=== PATIENT | male | born 1965 | race Asian ===

== ENCOUNTER 2022-06-15 13:54 | Outpatient (CLI) | payer OTHER, MEDICARE, MEDICAID, SELFPAY | END 2022-06-15 13:55 | disposition home or self-care (01) | PROVIDERS: PCP Student in an Organized Health Care Education/Training Program; Visit Provider Surgery | DX: L89.312 Pressure ulcer of right buttock, stage 2 (principal); L89.322 Pressure ulcer of left buttock, stage 2; G82.53 Quadriplegia, C5-C7 complete; Z79.01 Long term (current) use of anticoagulants; K59.2 Neurogenic bowel, not elsewhere classified | CPT/HCPCS: 97597; 99203 ==

== ENCOUNTER 2022-07-06 13:46 | Outpatient (CLI) | payer OTHER, MEDICAID, SELFPAY | END 2022-07-06 13:47 | disposition home or self-care (01) | LOC: WOUND 13:46 | PROVIDERS: PCP Student in an Organized Health Care Education/Training Program; Visit Provider Surgery | DX: L89.322 Pressure ulcer of left buttock, stage 2 (principal); L89.312 Pressure ulcer of right buttock, stage 2; G82.53 Quadriplegia, C5-C7 complete; Z79.01 Long term (current) use of anticoagulants; K59.2 Neurogenic bowel, not elsewhere classified | CPT/HCPCS: 11042 ==

== ENCOUNTER 2022-07-19 13:20 | Outpatient (CLI) | payer MEDICARE, OTHER, MEDICAID, SELFPAY | END 2022-07-19 13:21 | disposition home or self-care (01) | LOC: WOUND 13:20 | PROVIDERS: PCP Student in an Organized Health Care Education/Training Program; Visit Provider Nurse Practitioner Family | DX: L89.312 Pressure ulcer of right buttock, stage 2 (principal); L89.322 Pressure ulcer of left buttock, stage 2; G82.53 Quadriplegia, C5-C7 complete | CPT/HCPCS: 11042 ==

== ENCOUNTER 2022-12-15 12:22 | Outpatient (CLI) | payer MEDICARE, OTHER, MEDICAID, SELFPAY | END 2022-12-15 12:23 | disposition home or self-care (01) | LOC: NFLDREF 12-20 11:40 | PROVIDERS: PCP Student in an Organized Health Care Education/Training Program; Referring Provider Student in an Organized Health Care Education/Training Program; Visit Provider Physician Assistant | DX: R30.0 Dysuria (principal); N39.0 Urinary tract infection, site not specified | CPT/HCPCS: 87086; 87186 ==

== ENCOUNTER 2022-12-18 16:52 | Emergency (ER) | payer MEDICARE, OTHER, MEDICAID, SELFPAY ==
[2022-12-18 17:01] VITALS: BP 123/84; PULSE 84; RESP 16; TEMP 36.6; O2SAT 99; BMI 38.0
--- NOTE | 2022-12-18 17:14 | ED_ITS ---
HPI - General Adult General Chief complaint: Urogenital Problems, Male Stated complaint: UTI Time Seen by Provider: 12/18/22 16:54 Source: patient Mode of arrival: wheelchair Limitations: no limitations History of Present Illness HPI narrative: 57-year-old male coming in today at the request of urgent care. Patient was seen last Monday and started on Macrobid for UTI. He was then seen on Monday is Macrobid was switched to cephalexin to cover for a left lower extremity cellulitis. Urine culture came back to the urgent care today with E coli, multi organism resistant and so patient was told to come to the ER for follow-up. Patient states that on Monday he started having terrible cramping across his abdomen which is unsure tell way that he has a UTI. Urine was dark, cloudy and has strong odor to it. Patient states that he took 2 doses of the Macrobid and his symptoms essentially cleared up. His cramping this appeared and his urine is clear and no longer odorous. He also states that his left lower extremity is less swollen and less red than it was on Monday. He denies any fevers. And generally states that his energy is back to normal as well as his appetite. Related Data Home Medications Medication Instructions Recorded Confirmed methenamine hippurate 1 gram tablet 1 g PO BID 12/15/22 12/16/22 rivaroxaban 10 mg tablet (Xarelto) 10 mg PO DAILY 12/15/22 12/16/22 Previous Rx's Medication Instructions Recorded cephalexin 500 mg capsule 500 mg PO TID 10 days #30 caps 12/16/22 Allergies Allergy/AdvReac Type Severity Reaction Status Date / Time No Known Drug Allergies Allergy Verified 12/18/22 17:06 Review of Systems Status of ROS: Reports: 10 or more systems reviewed and unremarkable except as noted in History and below Exam Narrative: Exam Narrative: Obese, well-developed patient in no acute distress. In his wheelchair. Alert and oriented x3. Answers questions appropriately. Mood and affect are appropriate. Thoughts are goal oriented and rational. No tangential or magical thinking noted. Patient speaks in full sentences without needing to catch his breath. Speech is not slurred or pressure. Patient does not appear ill or toxic. Vital signs are entirely normal. HEENT: Normocephalic atraumatic. Pupils are equally round reactive to light. Extraocular muscles are intact. Conjunctivae are moist without any icterus noted. Moist mucous membranes. Abdomen: Soft and nontender nondistended with normal bowel sounds. No guarding or rebound. Extremities: Bilateral lower extremities have 2+ pitting edema which is not new for him. He does have some erythema and warmth of the left lower extremity in the. Redness extends to about the mid mathew. When reviewing previous note this appears to be quite an improvement. Skin: Warm dry and intact. Const: Vital Signs, click to edit/add: Vital Signs - 24 hr 12/18/22 17:01 Temperature 97.8 F Pulse Rate [Pulse Oximeter] 84 Respiratory Rate 16 Blood Pressure [Ri t Upper Arm] 123/84 Pulse Oximetry 99 Oxygen Delivery Me thod Room Air Course Vital Signs Vital signs: Initial Vital Signs Temperature 97.8 F 12/18/22 17:01 Temperature Source Temporal Artery Scan 12/18/22 17:01 Pulse Rate 84 12/18/22 17:01 Pulse Rhythm Regular 12/18/22 17:01 Pulse Strength 3+ Normal 12/18/22 17:01 Respiratory Rate 16 12/18/22 17:01 Blood Pressure 123/84 12/18/22 17:01 Blood Pressure Mean 97 12/18/22 17:01 Blood Pressure Position Sitting 12/18/22 17:01 Pulse Oximetry 99 12/18/22 17:01 Oxygen Delivery Method Room Air 12/18/22 17:01 Vital Signs Temperature 97.8 F 12/18/22 17:01 Pulse Rate 84 12/18/22 17:01 Respiratory Rate 16 12/18/22 17:01 Blood Pressure 123/84 12/18/22 17:01 Pulse Oximetry 99 12/18/22 17:01 Oxygen Delivery Method Room Air 12/18/22 17:01 Temperature 97.8 F 12/18/22 17:01 Pulse Rate 84 12/18/22 17:01 Respiratory Rate 16 12/18/22 17:01 Blood Pressure 123/84 12/18/22 17:01 Pulse Oximetry 99 12/18/22 17:01 Oxygen Delivery Method Room Air 12/18/22 17:01 Medical Decision Making MDM Narrative Medical decision making narrative: 57-year-old male with UTI and cellulitis. At this point I think he should continue his Keflex however start his Macrobid back as this is the only oral me dication that the urine specimen came back sensitive to. Also it appears the patient has had a good response to 2 doses already done so. We will continue Macrobid at this point. He is to follow up with his primary care provider if at any point time starts to feel worse or he can certainly return to the ER. Medical Records Medical records reviewed: Yes I reviewed the patient's medical records Lab Data Lab results reviewed: Yes I reviewed the patient's lab results Discharge Plan Discharge Clinical Impression: Urinary tract infection, Cellulitis Patient Disposition: Home, Self-Care Condition: Stable Additional Instructions: If your symptoms worsen, return to the ER. Restart your Macrobid at the same dose and schedule and finish the prescription. Continue taking the cephalexin. Prescriptions: No Action cephalexin 500 mg capsule 500 mg PO TID 10 Days Qty: 30 0RF methenamine hippurate 1 gram tablet 1 g PO BID Xarelto 10 mg tablet 10 mg PO DAILY Follow Up/Referrals: JOELLEN FIORE DO [Primary Care Provider] - Stand Alone Forms: [employer] Info Instructions
[2022-12-18 17:31] VITALS: BP 123/84; PULSE 84; RESP 16; TEMP 36.6
== END 2022-12-18 17:31 | disposition home or self-care (01) ==
LOC: ED 17:23
PROVIDERS: Emergency Provider Family Medicine; PCP Student in an Organized Health Care Education/Training Program
DX: N39.0 Urinary tract infection, site not specified (principal); L03.116 Cellulitis of left lower limb
CPT/HCPCS: 99282; 99283

== ENCOUNTER 2023-07-04 12:39 | Outpatient (CLI) | payer MEDICARE, OTHER, MEDICAID, SELFPAY | END 2023-07-04 12:40 | disposition home or self-care (01) | LOC: WOUND 12:40 | PROVIDERS: PCP Student in an Organized Health Care Education/Training Program; Visit Provider Nurse Practitioner Family | DX: L89.313 Pressure ulcer of right buttock, stage 3 (principal); L89.153 Pressure ulcer of sacral region, stage 3; G82.53 Quadriplegia, C5-C7 complete; Z99.3 Dependence on wheelchair | CPT/HCPCS: 11042; G0463 ==

== ENCOUNTER 2023-07-11 10:39 | Outpatient (CLI) | payer MEDICARE, OTHER, MEDICAID, SELFPAY | END 2023-07-11 10:40 | disposition home or self-care (01) | LOC: WOUND 10:39 | PROVIDERS: PCP Student in an Organized Health Care Education/Training Program; Visit Provider Nurse Practitioner Family | DX: L89.313 Pressure ulcer of right buttock, stage 3 (principal); L89.153 Pressure ulcer of sacral region, stage 3; G82.53 Quadriplegia, C5-C7 complete | CPT/HCPCS: 11042 ==

== ENCOUNTER 2023-07-20 12:35 | Outpatient (CLI) | payer MEDICARE, OTHER, MEDICAID, SELFPAY | END 2023-07-20 12:36 | disposition home or self-care (01) | LOC: WOUND 12:35 | PROVIDERS: PCP Student in an Organized Health Care Education/Training Program; Visit Provider Nurse Practitioner Family | DX: L89.313 Pressure ulcer of right buttock, stage 3 (principal); L89.153 Pressure ulcer of sacral region, stage 3; G82.53 Quadriplegia, C5-C7 complete | CPT/HCPCS: 11042 ==

== ENCOUNTER 2023-08-03 09:20 | Outpatient (CLI) | payer MEDICARE, OTHER, MEDICAID, SELFPAY | END 2023-08-03 09:21 | disposition home or self-care (01) | LOC: WOUND 09:20 | PROVIDERS: PCP Student in an Organized Health Care Education/Training Program; Visit Provider Nurse Practitioner Family | DX: L89.313 Pressure ulcer of right buttock, stage 3 (principal); L89.153 Pressure ulcer of sacral region, stage 3; G82.53 Quadriplegia, C5-C7 complete; Z99.3 Dependence on wheelchair | CPT/HCPCS: 11042 ==

== ENCOUNTER 2023-08-17 12:51 | Outpatient (CLI) | payer MEDICARE, OTHER, MEDICAID, SELFPAY | END 2023-08-17 12:52 | disposition home or self-care (01) | LOC: WOUND 12:51 | PROVIDERS: PCP Student in an Organized Health Care Education/Training Program; Visit Provider Nurse Practitioner Family | DX: L89.313 Pressure ulcer of right buttock, stage 3 (principal); L89.893 Pressure ulcer of other site, stage 3; G82.53 Quadriplegia, C5-C7 complete | CPT/HCPCS: 11042 ==

== ENCOUNTER 2023-09-07 13:49 | Outpatient (CLI) | payer MEDICARE, OTHER, MEDICAID, SELFPAY | END 2023-09-07 13:50 | disposition home or self-care (01) | LOC: WOUND 13:49 | PROVIDERS: PCP Student in an Organized Health Care Education/Training Program; Visit Provider Nurse Practitioner Family | DX: L89.893 Pressure ulcer of other site, stage 3 (principal); G82.53 Quadriplegia, C5-C7 complete; Z99.3 Dependence on wheelchair | CPT/HCPCS: 11042 ==

== ENCOUNTER 2023-10-19 13:08 | Outpatient (CLI) | payer MEDICARE, OTHER, MEDICAID, SELFPAY | END 2023-10-19 13:09 | disposition home or self-care (01) | LOC: WOUND 13:09 | PROVIDERS: PCP Student in an Organized Health Care Education/Training Program; Visit Provider Nurse Practitioner Family | DX: L89.893 Pressure ulcer of other site, stage 3 (principal); G82.53 Quadriplegia, C5-C7 complete; Z99.3 Dependence on wheelchair | CPT/HCPCS: 11042 ==

== ENCOUNTER 2023-10-20 09:29 | Emergency (ER) | payer MEDICARE, OTHER, MEDICAID, SELFPAY ==
[2023-10-20 09:36] VITALS: BP 93/67; PULSE 79; RESP 18; TEMP 35.9; O2SAT 96; BMI 26.8
--- NOTE | 2023-10-20 10:09 | ED_ITS ---
HPI - General Adult General Chief complaint: Lower Extremity Swelling Stated complaint: cellulitis - right leg Time Seen by Provider: 10/20/23 09:44 History of Present Illness HPI narrative: This 58-year-old male has been taking Keflex for a cellulitis in his right lower extremity. He started this treatment 3 days ago and comes in for recheck. He states that he is not getting worse but is not sure that he is getting better. He does have paraplegia with very little sensation in his lower extremities. He has large pedal edema and wears compression stockings. He arrives here with normal vital signs and is not reporting any new symptoms. Related Data Home Medications ?Medication ?Instructions ?Recorded ?Confirmed methenamine hippurate 1 gram tablet 1 g PO BID 10/17/23 10/17/23 nitrofurantoin 1 cap PO BID 10/17/23 10/17/23 monohydrate/macrocrystals 100 mg capsule rivaroxaban 10 mg tablet (Xarelto) 10 mg PO DAILY 10/17/23 10/17/23 Previous Rx's ?Medication ?Instructions ?Recorded cephalexin 500 mg capsule 500 mg PO QID 7 days #28 caps 10/17/23 Allergies Allergy/AdvReac Type Severity Reaction Status Date / Time No Known Drug Allergies Allergy Verified 10/17/23 10:14 Review of Systems Status of ROS: Reports: 10 or more systems reviewed and unremarkable except as noted in History and below Narrative: Constitutional: No fevers, no weight gain or loss. Eyes: No discharge. No vision changes. HENT: No congestion, no sore throat, no ear pain. Cardiovascular: No chest pain, no palpitations. Respiratory: No shortness of breath, no wheezes, no cough. Gastrointestinal: No abdominal pain, no vomiting, no diarrhea. Genitourinary: No dysuria, no hematuria. Musculoskeletal: Paraplegia. Skin: No rashes, no pruritis. Neurological: No dizziness, weakness, sensory change, speech change. Endo/Heme/Allergies: No bruising or bleeding. No polydipsia. Pysch: no suicidality, no anxiety, no insomnia. All other systems reviewed and are negative. PFS PFS Social History Smoking Status: Never smoker How often do you have a drink containing alcohol: never AUDIT-C Alcohol total score: 0 Non-prescribed substance use: denies use Exam Narrative: Exam Narrative: Constitutional: Well-developed, well-nourished, no acute distress. HEENT: Normocephalic, atraumatic. Neck: Normal range of motion. Nontender. Supple. Heart: Intact distal pulses. Lungs: No chest discomfort. No wheezes, rhonchi, or rales. Abdomen: Nontender. Back: Normal range of motion. Extremities: Paraplegia. No injury. Skin: Intact. No rash. Right lower extremity has erythema and pedal edema extending from below his knee out to his foot. There is increased warmth. Neurologic: No altered sensation. No weakness. Alert and oriented. Psychiatric: No suicidality. No anxiety or depression. No insomnia. Nursing notes and vitals signs are reviewed. Const: Vital Signs, click to edit/add: Vital Signs - 24 hr 10/20/23 09:36 Temperature 96.7 F L Pulse Rate [Pulse Oximeter] 79 Respiratory Rate 18 Blood Pressure [Ri ght Upper Arm] 93/67 Pulse Oximetry 96 Oxygen Delivery Me thod Room Air Course Vital Signs Vital signs: Initial Vital Signs Temperature 96.7 F L 10/20/23 09:36 Temperature Source Temporal Artery Scan 10/20/23 09:36 Pulse Rate 79 10/20/23 09:36 Pulse Rhythm Regular 10/20/23 09:36 Respiratory Rate 18 10/20/23 09:36 Blood Pressure 93/67 10/20/23 09:36 Blood Pressure Mean 75 10/20/23 09:36 Blood Pressure Position Sitting 10/20/23 09:36 Pulse Oximetry 96 10/20/23 09:36 Oxygen Delivery Method Room Air 10/20/23 09:36 Vital Signs Temperature 96.7 F L 10/20/23 09:36 Pulse Rate 79 10/20/23 09:36 Respiratory Rate 18 10/20/23 09:36 Blood Pressure 93/67 10/20/23 09:36 Pulse Oximetry 96 10/20/23 09:36 Oxygen Delivery Method Room Air 10/20/23 09:36 Temperature 96.7 F L 10/20/23 09:36 Pulse Rate 79 10/20/23 09:36 Respiratory Rate 18 10/20/23 09:36 Blood Pressure 93/67 10/20/23 09:36 Pulse Oximetry 96 10/20/23 09:36 Oxygen Delivery Method Room Air 10/20/23 09:36 Medical Decision Making MDM Narrative Medical decision making narrative: This patient is being treated for cellulitis in his right lower extremity. He is currently taking Keflex. He states that symptoms have not worsened but she feels that the redness has not improved also. He arrives with normal vital signs. I did explain that recent literature that was reviewed by us doctors in the emergency department was indicating that the symptoms of redness often take more than a week to resolve. IA stated reassurance with the current plan and advised him regarding signs and symptoms that would indicate a need for return and re-evaluation and change of treatment strategy. He is agreeable with this plan. Discharge Plan Discharge Clinical Impression: Cellulitis Patient Disposition: Home, Self-Care Condition: Unchanged Additional Instructions: Continue current plans. Follow up with primary physician or return if worsening symptoms happen. Prescriptions: No Action nitrofurantoin monohyd/m-cryst 100 mg capsule 1 cap PO BID Xarelto 10 mg tablet 10 mg PO DAILY methenamine hippurate 1 gram tablet 1 g PO BID cephalexin 500 mg capsule 500 mg PO QID 7 Days Qty: 28 0RF Follow Up/Referrals: JOELLEN FIORE DO [Primary Care Provider] - Stand Alone Forms: [employer] Info Instructions
== END 2023-10-20 10:25 | disposition home or self-care (01) ==
LOC: ED 10:14
PROVIDERS: Emergency Provider Emergency Medicine Emergency Medical Services; PCP Student in an Organized Health Care Education/Training Program
DX: L03.115 Cellulitis of right lower limb (principal)
CPT/HCPCS: 99283; 99284

== ENCOUNTER 2023-10-24 22:18 | Outpatient (CLI) | payer MEDICARE, OTHER, MEDICAID, SELFPAY | END 2023-10-24 22:19 | disposition home or self-care (01) | LOC: AMB 10-26 02:02 | PROVIDERS: PCP Student in an Organized Health Care Education/Training Program; Visit Provider Emergency Medicine | DX: R55 Syncope and collapse (principal) | CPT/HCPCS: A0998 ==

== ENCOUNTER 2023-10-24 23:07 | Emergency (ER) | payer MEDICARE, OTHER, MEDICAID, SELFPAY ==
[2023-10-24 23:31] VITALS: BP 100/60; PULSE 100; RESP 16; TEMP 37; O2SAT 93; BMI 27.3
--- NOTE | 2023-10-25 00:17 | ED_ITS ---
HPI - General Adult General Chief complaint: Syncope/Fainted Stated complaint: syncope Time Seen by Provider: 10/25/23 00:00 Source: patient and family Mode of arrival: wheelchair (Wheelchair-bound at baseline) Limitations: no limitations History of Present Illness HPI narrative: 58-year-old male with a history of a spinal cord injury at C7 presents to the emergency department for evaluation of syncope in the shower. This happened about 2 to 2-1/2 hours prior to arrival. Patient has been treated for cellulitis of the right lower extremity for the past 4 and half days. ED note from the reviewed. Currently being treated with Keflex. He is reporting that the Keflex causes some nausea and he has a poor appetite. He states that he took a long hot shower and then started to feel slightly lightheaded. His caregiver was helping him with his shower chair slide into his wheelchair when the caregiver reports that he passed out for what was probably less than a minute. There was no shaking or seizure-like activity. Denies intoxication. Reports that when patient came to, he was fully alert. Patient says he has been feeling more fatigued over the past few days from the infection but also possibly from side effects of the antibiotic. The antibiotic does cause some nausea. No chest pain, no shortness of breath, no unusual symptoms following the episode tonight. Patient was evaluated by his primary care provider actually earlier today and a chest x-ray was performed due to a mild cough. Per patient, this did not show anything abnormal and he was recommended to use an inhaler for a little bit of bronchiolitis if needed. Patient is not running any fevers. He has some swelling in the leg but states that it does not appear to be worsening for infection. 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 Reports no lapse in this treatment. Denies neurological changes. No diarrhea, bloody stools or other symptoms of illness. He does have a chronic wound on his right knee that is being treated by the wound care. He states that this is dry, not draining and not showing any signs of worsening. He was told that this could have been from a spider bite as no other etiology has been found. No prior history of any heart problems, heart failure, coronary artery disease or arrhythmia. Past medical history is notable for prior DVT and also the C7 spinal cord injury. He is wheelchair-bound. He also reports prior multiple urinary tract infections, is now on prophylactic treatment for this. No recent surgeries. Nonsmoker. ROS is notable for the generalized symptoms as described above, otherwise denies times 12 systems Related Data Home Medications ?Medication ?Instructions ?Recorded ?Confirmed methenamine hippurate 1 gram tablet 1 g PO BID 10/17/23 10/24/23 rivaroxaban 10 mg tablet (Xarelto) 10 mg PO DAILY 10/17/23 10/24/23 cephalexin 500 mg capsule 500 mg PO QID 10/24/23 10/24/23 Allergies Allergy/AdvReac Type Severity Reaction Status Date / Time No Known Drug Allergies Allergy Verified 10/17/23 10:14 PFSH PFS Social History Smoking Status: Never smoker How often do you have a drink containing alcohol: never AUDIT-C Alcohol total score: 0 Non-prescribed substance use: denies use Exam Const: Vital Signs, click to edit/add: Vital Signs - 24 hr 10/24/23 23:31 Temperature 98.6 F Pulse Rate [Pulse Oximeter] 100 Respiratory Rate 16 Blood Pressure [Ri ght Upper Arm] 100/60 Pulse Oximetry 93 Documenting provider has reviewed patient's vital signs: yes Common normals: no apparent distress and alert Other: Friendly cooperative, good historian. HENMT: Common normals: normocephalic and oropharynx normal Head and scalp: normocephalic Face and sinus: normal facial exam Eye: Common normals: conjunctivae normal General eye: normal appearance of both eyes Conjunctiva: conjunctiva(e) normal Neck & C-Spine: General: normal visual inspection Resp: Common normals: normal respiratory effort, no use of accessory muscles and clear to auscultation bilaterally Effort & inspection: able to speak in complete sentences Auscultation: clear to auscultation bilaterally Cardio: Common normals: regular rate, regular rhythm, S1 normal heart sound and no murmurs Rate: regular rate Rhythm: regular rhythm Heart sounds: S1 normal GI: Common normals: Normal to inspection, nondistended, normoactive bowel sounds present, soft to palpation and no masses Palpation: soft Extremity: Other: Right lower extremity does have a dry ulcerated it chronic appearing wound on the anterior right knee, just inferior to the patella. No unusual drainage or odor. It does correspond online up with a padded area from his wheelchair. The right lower leg does show 2+ edema. There is a slight redness to the anterior mathew area diffusely but no sharply demarcated cellulitis. There is no warmth. No reported tenderness to palpation but that may not be reliable with his spinal cord injury. The opposite left leg has trace to 1+ edema, no redness or warmth. Neuro: Sensorium/orientation: alert Other: Moves upper extremities with symmetric movement. Normal speech and facial exam. No purposeful movement of torso or lower extremities. Psych: Common normals: speech normal Attitude: engaged Activity/motor behavior: appropriate eye contact Speech: normal speech Mood and affect: euthymic mood Skin: Narrative: Cellulitis of right lower extremity and infrapatellar wound as described above, no other signs of bruising or open sores noted. Course Course ED Course: 58-year-old male with syncopal episode in the shower, suspect vagal event. Cannot exclude dehydration, electrolyte anomaly or dehydration from recent illness, worsening infection, cardiac process, among others. Event happened about 3 hours from the time of my assessment. Will obtain EKG, cardiac labs, bolus 1 L of normal saline, other typical baseline labs to look for signs of worsening infection. At this time on clinical appearance the infection does not appear to be worsening. Await labs and findings. Reevaluation(s) Time of Reevaluation #1: 01:30 Reevaluation #1: Patient continuing to feel well. Normal labs reviewed with patient. He completed his IV fluids. I suspect that this episode was mostly the function of vagal/neurogenic hypertension in the setting of his very hot shower. Reports that he had also just had a large bowel movement upon further discussion today. I encouraged him to continue pushing fluids and nutrition while he is on the antibiotic and not feeling particularly well. White blood cell count has gone down on the antibiotic which is reassuring. Other infection markers are also reassuring. I encouraged compression and elevation as I do notice swelling. He tells me that he will be more diligent about this. We reviewed alarm symptoms that would warrant coming back to the emergency department and he verbalizes good understanding of these. Vitals remained stable. Will discharge home with family with no changes to current medical care. Vital Signs Vital signs: Initial Vital Signs Temperature 98.6 F 10/24/23 23:31 Temperature Source Temporal Artery Scan 10/24/23 23:31 Pulse Rate 100 10/24/23 23:31 Respiratory Rate 16 10/24/23 23:31 Blood Pressure 100/60 10/24/23 23:31 Blood Pressure Mean 73 10/24/23 23:31 Blood Pressure Position Sitting 10/24/23 23:31 Pulse Oximetry 93 10/24/23 23:31 Vital Signs Temperature 98.6 F 10/24/23 23:31 Pulse Rate 100 10/24/23 23:31 Respiratory Rate 16 10/24/23 23:31 Blood Pressure 100/60 10/24/23 23:31 Pulse Oximetry 93 10/24/23 23:31 Temperature 98.6 F 10/24/23 23:31 Pulse Rate 100 10/24/23 23:31 Respiratory Rate 16 10/24/23 23:31 Blood Pressure 100/60 10/24/23 23:31 Pulse Oximetry 93 10/24/23 23:31 Medications Administered Medications: Discontinued Medications Generic Name Dose Route Start Last Admin Trade Name Freq PRN Reason Stop Dose Admin Sodium Chloride 1,000 mls @ 1,000 mls/hr 10/25/23 00:17 10/25/23 01:22 0.9 % Sodium Chloride 1000 Ml IV 10/25/23 01:16 Infused .Q1H PK Infusion Medical Decision Making Lab Data Lab results reviewed: Yes I reviewed the patient's lab results Lab results narrative: White blood cell count is going down, hemoglobin is stable. Electrolytes actually look quite good. BUN/creatinine ratio does not show any significant dehydration. Cardiac labs are all reassuring. Labs: Lab Results 10/25/23 10/25/23 Range/Units 00:14 00:37 WBC 8.36 (4.50-11.00) K/uL RBC 4.26 L (4.30-5.90) m/uL Hgb 12.7 L (13.5-17.5) gm/dL Hct 38.7 (37.0-53.0) % MCV 91 (80-100) fL MCH 30 (26-34) pg MCHC 33 (32-36) gm/dL RDW Coeff of Tommie 14.9 (11.5-15.5) % Plt Count 388 (140-440) K/uL Neut % (Auto) 65.7 (42.0-72.0) % Lymph % (Auto) 19.9 L (20-44) % Dorado % (Auto) 12.6 H (0.0-11.0) % Eos % (Auto) 0.4 (0.0-7.0) % Baso % (Auto) 0.4 (0.0-3.0) % Neut # (Auto) 5.51 (1.7-7.0) K/uL Lymph # (Auto) 1.70 (0.90-2.90) K/uL Dorado # (Auto) 1.10 H (0.00-0.90) K/UL Eos # (Auto) 0.03 (0.00-0.50) K/uL Baso # (Auto) 0.03 (0.00-0.30) K/uL Abs Immat Gran (auto) 0.08 (0.00-0.30) K/uL Imm/Tot Granulo (auto) 1.0 % Sodium 133 L (135-149) mmol/L Potassium 4.9 (3.6-5.1) mmol/L Chloride 105 (96-114) mmol/L Carbon Dioxide 20 (20-32) mmol/L Anion Gap 8 (7-15) mEq/L BUN 18 (7-30) mg/dL Creatinine 0.6 (0.5-1.5) mg/dL Estimated Creat Clear 141.19 Estimated GFR 111 ml/min Glucose 118 H (60-115) mg/dL Lactate 1.0 (0.5-1.9) mmol/L Calcium 8.3 L (8.4-10.6) mg/dL Troponin I < 0.01 L (0.01-0.04) ng/mL C-Reactive Protein 4.2 H (0.5-1.0) mg/dL NT-Pro-B Natriuret Pep 104 pg/mL Procalcitonin 0.14 (<0.50) ng/mL Ethyl Alcohol < 0.01 L (0.01-0.03) % POC Troponin I 0.00 L (0.01-0.04) ng/ml ECG Data Attestation: I personally reviewed and interpreted this ECG as follows: Prior ECG tracings: not available for review Interpretation: Normal sinus rhythm, rate of 89. Normal axis. Slight right bundle-branch block , unknown chronicity. Otherwise no ischemic changes. Discharge Plan Discharge Clinical Impression: Syncope due to orthostatic hypotension Patient Disposition: Home w/ Parent or Adult Condition: Improved Instructions: Syncope (DC) Additional Instructions: As we discussed, there are no signs of worsening infection, heart disease, abnormal heart rhythm or other dangerous reason for your fainting spell this evening. As we discussed, spinal cord injuries do increase your chances of abnormal body response to overheating, dehydration, fluid shifts with diarrhea and in other times as well. Most of the time, these will need to fainting spells under these circumstances. Please keep taking your antibiotic despite the side effects. It does seem to be working well. It takes cellulitis quite a long time to respond clinically. Try to wear compressive stockings and or Robson wraps on your legs or keep them elevated as much as possible to help things heal. If the lymphatic fluid cannot drain, your infection will heal slower. If these episodes keep happening, please follow-up with your primary care provider to discuss different treatment options. Continue to try to push fluids and nutrition while you are not feeling well. Back to the emergency department if you start having chest pain, severe shortness of breath, neurological changes or repeated episodes of passing out. Activity Level: Activity as Tolerated Discharge Diet: Regular Prescriptions: No Action Xarelto 10 mg tablet 10 mg PO DAILY methenamine hippurate 1 gram tablet 1 g PO BID cephalexin 500 mg capsule 500 mg PO QID Follow Up/Referrals: JOELLEN FIORE DO [Primary Care Provider] - Stand Alone Forms: [email or web address] Info Instructions
[2023-10-25] MEDS: 0.9 % SODIUM CHLORIDE 1000 ml 1,000 ML IV (00:44)
[2023-10-25 00:56] LABS: Basophils Absolute Auto 0.03 K/uL (0.00-0.30); Basophils Percent Auto 0.4 % (0.0-3.0); Eosinophils Absolute Auto 0.03 K/uL (0.00-0.50); Eosinophils Percent Auto 0.4 % (0.0-7.0); Hematocrit 38.7 % (37.0-53.0); Hemoglobin* 12.7 gm/dL (13.5-17.5); Immature Granulocytes Abs Auto 0.08 K/uL (0.00-0.30); Lymphocytes Percent Auto 19.9 % (20-44); Mean Corpuscular HGB Conc 33 gm/dL (32-36); Mean Corpuscular Hemoglobin 30 pg (26-34); Mean Corpuscular Volume 91 fL (80-100); Monocytes Percent Auto 12.6 % (0.0-11.0); Neutrophils Absolute Auto 5.51 K/uL (1.7-7.0); Neutrophils Percent Auto 65.7 % (42.0-72.0); Platelet Count* 388 K/uL (140-440); RDW Coefficient of Variation % 14.9 % (11.5-15.5); Red Blood Count 4.26 m/uL (4.30-5.90); White Blood Count* 8.36 K/uL (4.50-11.00)
[2023-10-25 00:58] LABS: Slide Review Reflex No
[2023-10-25 01:02] LABS: Chloride* 105 mmol/L (96-114); Potassium* 4.9 mmol/L (3.6-5.1); Sodium* 133 mmol/L (135-149)
[2023-10-25 01:05] LABS: Creatinine* 0.6 mg/dL (0.5-1.5); Est. Creatinine Clearance* 141.19; Estimated Glomerular Filt Rate 111 ml/min
[2023-10-25 01:06] LABS: Anion Gap 8 mEq/L (7-15); Blood Urea Nitrogen* 18 mg/dL (7-30); Calcium* 8.3 mg/dL (8.4-10.6); Carbon Dioxide* 20 mmol/L (20-32); Glucose* 118 mg/dL (60-115)
[2023-10-25 01:08] LABS: C Reactive Protein* 4.2 mg/dL (0.5-1.0); Ethanol* < 0.01 % (0.01-0.03)
[2023-10-25 01:16] LABS: NT Pro B Type NatriureticPept* 104 pg/mL
[2023-10-25 01:21] LABS: Procalcitonin* 0.14 ng/mL (<0.50); Troponin I* < 0.01 ng/mL (0.01-0.04)
== END 2023-10-25 01:39 | disposition home or self-care (01) ==
PROVIDERS: Emergency Provider Family Medicine; PCP Student in an Organized Health Care Education/Training Program
DX: I95.1 Orthostatic hypotension (principal)
CPT/HCPCS: 36415; 80048; 82077; 83605; 83880; 84145; 84484; 85025; 86140; 93005; 99284; 99285; J7030

== ENCOUNTER 2023-11-16 13:00 | Outpatient (CLI) | payer MEDICARE, OTHER, MEDICAID, SELFPAY | END 2023-11-16 13:01 | disposition home or self-care (01) | LOC: WOUND 13:00 | PROVIDERS: PCP Student in an Organized Health Care Education/Training Program; Visit Provider Nurse Practitioner Family | DX: L89.893 Pressure ulcer of other site, stage 3 (principal); G82.53 Quadriplegia, C5-C7 complete | CPT/HCPCS: 97597 ==

== ENCOUNTER 2024-01-29 08:40 | Emergency (ER) | payer MEDICARE, MEDICAID, BC, SELFPAY ==
[2024-01-29 09:26] VITALS: BP 122/83; PULSE 77; RESP 14; TEMP 36.4; O2SAT 96; BMI 26.5
--- NOTE | 2024-01-29 11:25 | ED_ITS ---
HPI - GI Bleed General Time Seen by Provider: 11:26 Date Seen: 01/29/24 Chief complaint: GI Bleed Stated complaint: hemorrhoid bleeding Time Seen by Provider: 01/29/24 11:25 Source: patient, family, RN notes reviewed and old records reviewed Mode of arrival: ambulatory Limitations: no limitations History of Present Illness HPI Narrative: Patient is a very pleasant 58-year-old gentleman with a history of spinal cord injury, DVT currently on Xarelto who comes to the emergency room for evaluation regarding hemorrhoid bleeding. Patient notes that he was evaluated 1 year ago for possible hemorrhoid and at that time was put on a high-fiber diet. He states that intermittently he will have a small amount of blood especially after a larger bowel movement. He has had some bleeding after bowel movements over the past few days and today it seemed more than usual. He notes that it did take longer than usual for the bleeding to stop as well. He had a weight of ov er 2-1/2 hours in the waiting room and notes that he has not had any further bleeding to his knowledge. He notes some mild discomfort in the rectum rating it a 2/5. He has not had any abdominal pain fever nausea or any other abdominal concerns in the past. Related Data Home Medications ?Medication ?Instructions ?Recorded ?Confirmed methenamine hippurate 1 gram tablet 1 g PO BID 10/17/23 01/29/24 rivaroxaban 10 mg tablet (Xarelto) 10 mg PO DAILY 10/17/23 01/29/24 Allergies Allergy/AdvReac Type Severity Reaction Status Date / Time No Known Drug Allergies Allergy Verified 01/29/24 09:26 Review of Systems Status of ROS: Reports: 6 or more systems reviewed and unremarkable except as noted in History and below Const: Denies: fever, chills or change in weight Cardio: Denies: shortness of breath with exertion Resp: Denies: shortness of breath GI: Denies: abdominal pain, nausea, vomiting, diarrhea or constipation Musculo: Denies: back pain PFSH PFSH Social History Smoking Status: Never smoker How often do you have a drink containing alcohol: never AUDIT-C Alcohol total score: 0 Non-prescribed substance use: denies use Exam Narrative: Exam Narrative: Patient is alert and oriented. Very well-spoken gentleman in no acute distress. Heart with regular rate and rhythm and lungs are clear. Abdomen is soft and nontender. Further exam shows non bleeding hemorrhoids noted around the anus. Patient does have skin breakdown on the buttocks. There is a bandage covering AA nickel sized irregular wound on the right buttock. No significant surrounding erythema. This compromises epidermis and partially compromises dermis no underlying fatty tissue is visualized. This is cleansed and redressed. Const: Vital Signs, click to edit/add: Vital Signs - 24 hr 01/29/24 09:26 01/29/24 13:54 Temperature 97.5 F L Pulse Rate [Pulse Oximeter] 77 79 Respiratory Rate 14 16 Blood Pressure [Ri ght Upper Arm] 122/83 85/66 L Pulse Oximetry 96 96 Oxygen Delivery Me thod Room Air Room Air Documenting provider has reviewed patient's vital signs: yes Course Course ED Course: At this time patient exam for safety will require a lift. We are trying to facilitate a moved to employed the lift and improved bed status on med surge. This is knotted admission. I have also coordinated with our surgeon Dr. Chowdhury a viewing time so that both of us her able to observe at the same time. Reevaluation(s) Reevaluation #1: At this time plan is to transfer patient to radiology x-ray room which has a lift. For safety reasons will not do this in the ED. Plan for surgeon to be available at that time for evaluation. Reevaluation #2: Able to use the lift in Radiology to safely transfer patient to a hospital bed for further examination. Patient was then transferred back to his chair without incident. Vital Signs Vital signs: Initial Vital Signs Temperature 97.5 F L 01/29/24 09:26 Temperature Source Oral 01/29/24 09:26 Pulse Rate 77 01/29/24 09:26 Pulse Rhythm Regular 01/29/24 09:26 Respiratory Rate 14 01/29/24 09:26 Blood Pressure 122/83 01/29/24 09:26 Blood Pressure Mean 96 01/29/24 09:26 Blood Pressure Position Sitting 01/29/24 09:26 Pulse Oximetry 96 01/29/24 09:26 Oxygen Delivery Method Room Air 01/29/24 09:26 Vital Signs Temperature 97.5 F L 01/29/24 09:26 Pulse Rate 77 01/29/24 09:26 Respiratory Rate 14 01/29/24 09:26 Blood Pressure 122/83 01/29/24 09:26 Pulse Oximetry 96 01/29/24 09:26 Oxygen Delivery Method Room Air 01/29/24 09:26 Temperature 97.5 F L 01/29/24 09:26 Pulse Rate 79 01/29/24 13:54 Respiratory Rate 16 01/29/24 13:54 Blood Pressure 85/66 L 01/29/24 13:54 Pulse Oximetry 96 01/29/24 13:54 Oxygen Delivery Method Room Air 01/29/24 13:54 MDM - GI Bleed MDM Narrative Medical decision making narrative: 1. Rectal bleeding-hemostatic at this time with evidence of hemorrhoids. Per surgeon suggestion who was also in attendance for examination today, suggest continuing high-fiber. Of course returning for worsening symptoms. Patient agrees with this plan. Abdomen is soft nontender. Patient has not had fever or chills. This has been intermittent over the past year. Do not think there is need to draw blood or any further imaging at this time. Patient is in agreement with this. 2. Hypotension-this is chronic. Patient is asymptomatic to this. He is a spinal cord injury. 3. Disposition-home at this time. Return seek medical attention for worsening symptoms. Medical Records Attestation: I reviewed the patient's medical records. Discharge Plan Discharge Clinical Impression: Bleeding external hemorrhoids, Chronic hypotension Additional Instructions: Monitor per surgeon suggestion. Return as needed to the ER. Prescriptions: No Action Xarelto 10 mg tablet 10 mg PO DAILY methenamine hippurate 1 gram tablet 1 g PO BID Follow Up/Referrals: JOELLEN FIORE DO [Primary Care Provider] - Stand Alone Forms: [facility] Info Instructions
--- NOTE | 2024-01-29 11:53 | P.GSCN_ITS ---
History of Present Illness Consult details Date Seen: 01/29/24 Consult date: 01/29/24 Narrative: Patient presented to the ED with bleeding after bowel movements. Has had this in the past, which has been attributed to hemorrhoids. I did see this patient in clinic last year, with recommendations for a high fiber diet at that time. This did control his symptoms until recently. He has had bleeding for the last several days, which was worse this morning. This morning he noticed some blood on the toilet paper and on his pad when he transferred. He denies any passage of blood clots. No continued bleeding. He is on Xarelto for DVT's. He has never had a colonoscopy before. Last Cologuard was done earlier this urine negative. No personal or family history of colon cancer or polyps. Review of Systems Status of ROS: Reports: 10 or more systems reviewed and unremarkable except as noted in History and below [facility] Social History Smoking Status: Never smoker How often do you have a drink containing alcohol: never AUDIT-C Alcohol total score: 0 Non-prescribed substance use: denies use Meds Home Medications and Allergies Home Medications ?Medication ?Instructions ?Recorded ?Confirmed ?Type methenamine hippurate 1 gram tablet 1 g PO BID 10/17/23 01/29/24 History rivaroxaban 10 mg tablet (Xarelto) 10 mg PO DAILY 10/17/23 01/29/24 History Allergies Allergy/AdvReac Type Severity Reaction Status Date / Time No Known Drug Allergies Allergy Verified 01/29/24 09:26 Exam Narrative: Exam Narrative: General: Alert and oriented, no acute distress Respiratory: Equal breath rise bilaterally, maintained on room air CV: Well perfused Abdomen: Soft, nontender nondistended : Right lateral sacral ulcer with exposure of underlying fat, no concern for infection. Some superficial erosions surrounding the wound. Perianal skin without irritation. No skin tags, decreased anal tone. Digital rectal exam with palpation of underlying hemorrhoidal tissue, no masses appreciated. Some prolapse of hemorrhoidal tissue posterior midline, with spontaneous reduction. No active bleeding. No anoscopy performed. Const: Vital Signs, click to edit/add: Vital Signs - 24 hr 01/29/24 09:26 Temperature 97.5 F L Pulse Rate [Pulse Oximeter] 77 Respiratory Rate 14 Blood Pressure [Ri ght Upper Arm] 122/83 Pulse Oximetry 96 Oxygen Delivery Me thod Room Air Results Labs Labs: Hemoglobin stable 12.7. Progress Note:A&P Assessment and plan (1) Internal hemorrhoids without complication: Status: Acute Assessment and Plan: Patient presents for bleeding internal hemorrhoids. No active bleeding noted today. No necrotic tissue or infection present on examination. We discussed the options at this point including doing nothing, continued medical management with high-fiber diet, rubber-band ligation and surgical management. At this time the patient prefers to continue with observation. The bleeding has been very self-limiting, with patient only reporting it lasting for about a minute and no passage of blood clots or large amount of blood being present. His hemoglobin is also stable at 12.7. He was encouraged to follow-up in surgery Clinic with any change in his symptoms or if he changes his mind and wishes to pursue an exam under anesthesia with intervention.
[2024-01-29 13:54] VITALS: BP 85/66; PULSE 79; RESP 16; O2SAT 96
== END 2024-01-29 14:17 | disposition home or self-care (01) ==
PROVIDERS: Emergency Provider Family Medicine; PCP Student in an Organized Health Care Education/Training Program
DX: K64.8 Other hemorrhoids (principal); K62.5 Hemorrhage of anus and rectum; I10 Essential (primary) hypertension
CPT/HCPCS: 99283

== ENCOUNTER 2024-03-01 13:50 | Outpatient (CLI) | payer MEDICARE, MEDICAID, BC, SELFPAY | END 2024-03-01 13:51 | disposition home or self-care (01) | PROVIDERS: PCP Student in an Organized Health Care Education/Training Program; Visit Provider Nurse Practitioner Family | DX: L89.313 Pressure ulcer of right buttock, stage 3 (principal); G82.53 Quadriplegia, C5-C7 complete; Z99.3 Dependence on wheelchair | CPT/HCPCS: 11042; G0463 ==

== ENCOUNTER 2024-03-08 12:53 | Outpatient (CLI) | payer MEDICARE, MEDICAID, BC, SELFPAY | END 2024-03-08 12:54 | disposition home or self-care (01) | LOC: WOUND 12:54 | PROVIDERS: PCP Student in an Organized Health Care Education/Training Program; Visit Provider Nurse Practitioner Family | DX: G82.53 Quadriplegia, C5-C7 complete; Z99.3 Dependence on wheelchair; L89.313 Pressure ulcer of right buttock, stage 3 | CPT/HCPCS: 11042 ==

== ENCOUNTER 2024-03-15 08:49 | Outpatient (CLI) | payer MEDICARE, MEDICAID, BC, SELFPAY ==
--- OUTSIDE RECORDS SUMMARY | 2024-03-14 16:05 | XMS_ITS | Clinical Summary ---
Author Organization [facility] Address [place], [place] [address] Care Team Providers Care Glycerin Supervisor Name Role Phone Neville Olivera DO Primary Care Provider Allergies No known active allergies Medications medication order composer 24 inch transfer board 1 Device 0 4 Active cholecalciferol (VITAMIN D3) 1,000 unit tablet Take 1,000 Int'l Units by mouth once daily. 7 Active Incontinence Pad, Liner, Disp (Attends Insert Pad) padsIndications :Neurogenic bladder,Tetrapl egia (HC) For home use 60 Each 6 1 Active disposable glovesIndicatio ns:Neurogenic bladder,Tetrapl egia (HC) For home use. 2 box 6 1 Active Diaper,Brief, Adult,Disposabl e (Depend Underwear For Men L-XL)Indication s:Neurogenic bladder,Tetrapl egia (HC) For home use. 60 Each 6 1 Active methenamine hippurate (HIPREX) 1 gram tablet Take 1,000 mg by mouth 2 times daily. 1 Active durable medical equipment (DME)Indication s:Tetraplegia (HC) Wheelchair part-hinge for back wheel 1 Each 3 Active Foam Bandage (Tendra Mepilex Border) 3 X 3 bndgIndications :Multiple wounds of skin Apply topically to affected area(s). For right heel wound Change on M-W-F 10 Each 5 4 Active fluticasone propionate (FLOVENT) 110 mcg/Actuation inhalerIndicati ons:Acute bronchitis, unspecified organism Inhale 1 Puff by mouth two times daily. 12 g 4 Active Xarelto 10 mg tabletIndicatio ns:Deep vein thrombosis (DVT) of proximal vein of left lower extremity, unspecified chronicity (HC) Take 1 Tablet (10 mg) by mouth once daily with evening meal. 90 Tablet 3 4 Active trimethoprim-hammond lfamethoxazole 160-800 mg tabIndications: urinary tract infection Take 1 Tablet by mouth two times daily for 5 days. 10 Tablet 4 025 Active medication order composer Tegafoam product number [id number] , apply as directed. 1 box 3 4 Discontinu ed(*Med complete/R egimen complete/L evel of care change) cyanocobalamin (Vitamin B-12) 1,000 mcg tabletIndicatio ns:Vitamin B12 deficiency Take 1 Tablet (1,000 mcg) by mouth once daily. 60 Tablet 1 024 Discontinu ed(*Med complete/R egimen complete/L evel of care change) Foam Bandage (Tendra Mepilex Border) 6 X 6 bndgIndications :Multiple wounds of skin Apply topically to affected area(s). Right buttock wound - dressing changes on M, W, F 10 Each 6 4 024 Discontinu ed(*Med complete/R egimen complete/L evel of care change) durable medical equipment (DME)Indication s:Multiple wounds of skin PluroGel 1.7 oz 1 Each 4 024 Discontinu ed(*Med complete/R egimen complete/L evel of care change) clotrimazole-be tamethasone cream (LOTRISONE) 1-0.05 % creamIndication s:Chronic eczema Apply topically to affected area(s) two times daily. 45 g 4 024 Discontinu ed(*Med complete/R egimen complete/L evel of care change) albuterol HFA (PRO-AIR; VENTOLIN; PROVENTIL) 90 mcg/actuation inhalerIndicati ons:Wheezing Inhale 1-2 Puffs by mouth every 4 hours if needed for Shortness Of Breath or Wheezing. 3 Each 3 4 024 Discontinu ed(*Med complete/R egimen complete/L evel of care change) codeine-guaiFEN esin 10-100 mg/5 mL liquidIndicatio ns:Persistent cough Take 5 mL by mouth every 4 hours if needed for Cough. 100 mL 4 024 Discontinu ed(*Med complete/R egimen complete/L evel of care change) dressing, collagen-silver 2 X 2.2 bndgIndications :Pressure injury, stage 1, unspecified location Apply topically to affected area(s). 50 Each 4 024 Discontinu ed(Reorder (E-cancel not sent)) dressing, collagen-silver 2 X 2.2 bndgIndications :Pressure injury, stage 1, unspecified location Apply topically to affected area(s). 50 Each 4 024 Discontinu ed(*Med complete/R egimen complete/L evel of care change) nitrofurantoin macrocrystals/m onohydrate (Macrobid) 100 mg capsuleIndicati ons:Complicated UTI (urinary tract infection) Take 1 Capsule (100 mg) by mouth two times daily for 5 days. 10 Capsule 4 024 Active Problems Problem Noted Date Diagnosed Date Pressure injury, stage 3, unspecified location 1 03/19/2022 Frequent UTI 11/04/2022 Personal history of other venous thrombosis and embolism 08/17/2022 Lumbar spinal stenosis 09/24/2020 Overview (09/24/2020): 1. Charcot spine at the L3 interspace with pseudoarthrosis and exuberant surrounding proliferative changes which appears similar to 04/17/2018. 2. There is severe spinal stenosis at the L2-L4 interspace levels. 3. There is underlying ankylosing spondylitis. 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 Started Xarelto Oncology consult 03/2021: continue with indefinite anticoagulation prothrombin gene mutation testing, factor V Leiden, and Antithrombin III normal MCC (current) use of anticoagulants 2012 Incomplete quadriplegia due to spinal cord lesion between fifth and seventh cervical vertebra 01/11/2013 05/31/2022 Tetraplegia 07/12/2012 Overview (07/08/2021): Axial head trauma 06/2012 Impression: 1. Traumatic disc herniation at C6-C7 with severe spinal canal narrowing. Spinal cord edema posterior to the C6 and C7 vertebral bodies. Disruption of the anterior and posterior longitudinal ligaments as well as the ligamentum flavum at C6-C7. 2. Severe bilateral neuroforaminal narrowing at C6-C7. 3. Moderate spinal canal narrowing at C5-C6. 4. C7 facet fracture was better visualized on CT from same date. Neurogenic bowel 07/12/2012 Neurogenic bladder 07/12/2012 Encounters Date Type Department Care Team Description 02/28/2024 1:15 PM [facility] Orders Only [facility] [address] [place] [address] Lab, [place] [facility] 02/28/2024 Travel 02/27/2024 8:55 AM [facility]NER E-Visit [facility] [address] [place] [address] Shaqra, Adei, DO eVisit for Urinary Tract Infection from Last 3 Months Immunizations Name Administration Dates Next Due COVID-19 vaccine (Angelina-J&J) KIMANI TOMPKINS Tdap 07/25/2013 Family History Medical History Relation Name Comments Asthma Mother Relation Name Status Comments Mother Social History Tobacco Use Types Packs/Day Years Used Date Smoking Tobacco: Never Smokeless Tobacco: Never Tobacco Cessation:Counseling Given: Yes Alcohol Use Standard Drinks/Week Comments Yes 0 (1 standard drink = 0.6 oz pure alcohol) occasional - few glasses wine per month PHQ-2 Answer Date Recorded PHQ-2 TOTAL SCORE 0 11/15/2022 Social Connections Answer Date Recorded Frequency of Communication with Friends and Fami ly Not on file 11/08/2023 Financial Resource Strain Answer Date R ecorded Difficulty of Paying Living Expenses 3 11/04/2022 Difficulty of Paying Living Expenses Not on file 11/04/2022 Food Insecurity Answer Date Recorded Worried About Running Out of Food in the Last Ye ar 1 11/04/2022 Transportation Needs Answer Date Record ed Lack of Transportation (Medical) 1 11/04/2022 Housing Stability Answer Date Recorded Unable to Pay for Housing in the Last Year 1 11/04/2022 Interpersonal Safety Answer Date Record ed Are you being hit, kicked, p ushed or yelled at (see row info)? No 04/26/2023 Interpersonal Safety Abuse 12 - 18 Not on file 04/26/2023 Interpersonal Safety Ambulatory Vulnerability No t on file 04/26/2023 Sex and Gender Information Value Date Recorded Sex Assigned at Not on file Legal Sex Male 7:12 AM [facility] Gender Identity Not on file Sexual Orientation Not on file Obstetrics History Last Filed Vital Signs Vital Sign Reading Time Taken Comments Blood Pressure 90/54 10/24/2023 9:49 AM CDT Pulse 79 10/24/2023 9:49 AM CDT Temperature 37.4 C (99.4 F) 10/24/2023 9:49 AM CDT Respiratory Rate 16 04/26/2023 9:48 PM [facility] Oxygen Saturation 95% 10/24/2023 9:49 AM CDT Inhaled Oxygen Concentration - - Weight 84.4 kg (186 lb) 04/26/2023 5:25 PM [facility] Height 180.3 cm (5' 11) 04/26/2023 5:25 PM [facility]NER Body Mass Index 25.94 04/26/2023 5:25 PM WEED THINNER Plan of Treatment Health Maintenance Due Date Last Done Comments HIV for age 15-65 06/03/1979 Hepatitis C screening for ag e 18-79 1982 Pneumococcal series for age 50+ (1 of 1 - PCV) 2014 Zoster (shingles) series for age 50+ (1 of 2) 2014 Tetanus booster 07/26/2023 07/25/2013 COVID-19 vaccine series (3 - season) 2023 02/08/2021, 07/12/2020 Influenza for age 50-64 11/12/2023 Depression screening for age 12+ 11/16/2023 11/15/2022, 11/04/2022, 03/04/2021, Additional history exists Fecal testing sDNA-FIT ([place]chelium guard) for age 45-75 01/02/2026 01/02/2023, 05/12/2019, 08/26/2018 Lipids for age 45-75 11/05/2027 11/04/2022, 09/04/2019, 07/27/2015, Additional history exists Tdap Completed 07/25/2013 Procedures Procedure Name Priority Date/Time Associated Diagnosis Comments URINALYSIS MICROSCOPIC STAT 02/28/2024 1:50 PM WEED [facility]INNER Dysuria URINE CULTURE Routine 02/28/2024 1:50 PM [facility]NER Dysuria URINALYSIS MACROSCOPIC - [facility] ONLY POC DIP ([facility]) Routine 02/28/2024 1:32 PM WEED [facility]INNER Dysuria SDNA-FIT EXTERNAL (COLOGUARD) Routine 01/02/2023 11:00 PM CDT Screening for colorectal cancer LIPID PANEL W REFLEX MEASURED LDL Routine 11/04/2022 9:36 AM CDT Lipid screening from Last 3 Months or Most Recently Relevant to Health Maintenance Results * (ABNORMAL) URINALYSIS MICROSCOPIC (02/28/2024 1:50 PM WEED [facility]INNER) RBC 11-25(A) 0-2, None Seen /HPF 02/28/2024 10:48 PM WE[facility] WBC 26-50(A) 0-2, 3-5, None Seen /HPF 02/28/2024 10:48 PM WEED [facility]NER [facility] BACTERIA Many(A) None Seen, Rare, Few Bacteria/ HPF 02/28/2024 10:48 PM WEED [facility]INNER [facility] EPITHELIAL CELLS None Seen None Seen, Few Epi/HPF 02/28/2024 10:48 PM WE[facility]NER [facility] HYALINE CASTS 0-2 0-2, 3-5 /LPF 02/28/2024 10:48 PM WE[facility]INNER [facility] CALCIUM OXALATE CRYSTALS Present(A) (none) 02/28/2024 10:48 PM [facility] Urine URINE SPECIMEN / Unknown Non-Blood / Unknown 02/28/2024 1:50 PM WE[facility]NER 02/28/2024 1:50 PM WEED [facility]INNER us Trii Jarod DO URINE Final Result [facility] [address] [place] [address], * (ABNORMAL) URINE CULTURE (02/28/2024 1:50 PM WEED THINNER) CULTURE RESULT(A) 03/02/2024 7:33 AM WE[facility]NER [facility] CULTURE >100,000 CFU/mL Escherichia coli 03/02/2024 7:33 AM WEED [facility]INNER [facility] Comment:ESBL-positive (Exten ded-spectrum beta-lactamase); multidrug-resistant organism. Urine URINE SPECIMEN / Unknown Non-Blood / Unknown 02/28/2024 1:50 PM [facility]NER 02/28/2024 1:50 PM WEED [facility]NER Narrative Organism Antibiotic Method Susceptibility Escherichia coli TRIMETHOPRIM/SULF <=19: S Escherichia coli AMPICILLIN >=32: R Escherichia coli CEFAZOLIN >=32: R Escherichia coli CEFAZOLIN-UC >=32: R Comment:Cefazolin-UC interpretations are for therapy of uncomplicated UTIs due to E.coli, K.pneumoniae, or P.mirablis. Cefazolin breakpoint is used as a surrogate to predict results for the oral agents - cefdinir, cefuroxime, and cephalexin, when used for therapy of uncomplicated UTIs due to E coli, K, pneumoniae, and P. mirabilis. The FDA recommends cefadroxil susceptibility can be deduced from cefazolin. Escherichia coli GENTAMICIN <=1: S Escherichia coli CEFTRIAXONE >=64: R Escherichia coli CEFTAZIDIME R Escherichia coli LEVOFLOXACIN >=8: R Escherichia coli CIPROFLOXACIN >=4: R Escherichia coli PIPERACILLIN/TAZO <=4: S Escherichia coli AMPICILLIN/SULBACTAM 8: S Escherichia coli CEFEPIME R Escherichia coli MEROPENEM <=0.25: S Escherichia coli NITROFURANTOIN <=16: S us Adei Javierqra DO MICROBIOLOGY Final Result Performing Organization Address City/[facility]/ZIP Co de Phone Number [facility] [address] [address], * (ABNORMAL) POCT Urinalysis Dipstick Only (02/28/2024 1:32 PM WEED THINNER) Pathologist [facility] PH 6.0 5.0 - 8.0 [facility] SPECIFIC GRAVITY 1.020 1.001 - 1.035 [facility] GLUCOSE NEGATIVE NEGATIVE [facility] BILIRUBIN NEGATIVE NEGATIVE [facility] KETONES NEGATIVE NEGATIVE [facility] OCCULT BLOOD 1+(A) NEGATIVE [facility] PROTEIN TRACE(A) NEGATIVE [facility] NITRITE POSITIVE(A) NEGATIVE [facility] LEUKOCYTE ESTERASE NEGATIVE NEGATIVE [facility] Urine URINE SPECIMEN / Unknown 02/28/2024 1:32 PM [facility]NER 02/28/2024 1:33 PM [facility]NER us Adei SaleStreamqra DO URINE Final Result Performing Organization Address City/[facility]/ZIP Co de Phone Number [facility] [place] [address], [facility] [address] [place] [address] * SDNA-FIT EXTERNAL (COLOGUARD) [[id number]] (01/02/2023 11:00 PM CDT) NONINV COLON CA DNA+OCC BLD SCRN STL-IMP Negative Negative 01/11/2023 1:11 AM CDT [facility] (CLIA #:[id number]) Comment: NEGATIVE TEST RESULT. A negative Cologuard result indicates a low likelihood that a colorectal cancer (CRC) or advanced adenoma (adenomatous polyps with more advanced pre-malignant features) is present. The chance that a person with a negative Cologuard test has a colorectal cancer is less than 1 in 1500 (negative predictive value >99.9%) or has an advanced adenoma is less than 5.3% (negative predictive value 94.7%). These data are based on a prospective cross-sectional study of 10,000 individuals at average risk for colorectal cancer who were screened with both Cologuard and colonoscopy. (Qing Plascencia. et al, N Engl J Med 2014;370(14):5862-8585) The normal value (reference range) for this assay is negative. COLOGUARD RE-SCREENING RECOMMENDATION: Periodic colorectal cancer screening is an important part of preventive healthcare for asymptomatic individuals at average risk for colorectal cancer. Following a negative Cologuard result, the [place] [employer] Society and U.S. Multi-Society Task Force screening guidelines recommend a Cologuard re-screening interval of 3 years. References: [place] [employer] Guideline for Colorectal Cancer Screening: https://www.cancer.org/cancer/vgnus-kqncml-fsxzoh/jmjewpron-fwlwwlkir-xlkozqu/ac s-rec ommendations.html.; Jim JOHNSON, Penny ALAN, Theo STOVALL, Colorectal Cancer Screening: Recommendations for Physicians and Patients from the U.S. Multi-Society Task Force on Colorectal Cancer Screening , Am J Gastroenterology 2017; 112:0729-1876. TEST DESCRIPTION: Composite algorithmic analysis of stool DNA-biomarkers with hemoglobin immunoassay. Quantitative values of individual biomarkers are not reportable and are not associated with individual biomarker result reference ranges. Cologuard is intended for colorectal cancer screening of adults of either sex, 45 years or older, who are at average-risk for colorectal cancer (CRC). Cologuard has been approved for use by the U.S. FDA. The performance of Cologuard was established in a cross sectional study of average-risk adults aged 50-84. Cologuard performance in patients ages 45 to 49 years was estimated by sub-group analysis of near-age groups. Colonoscopies performed for a positive result may find as the most clinically significant lesion: colorectal cancer [4.0%], advanced adenoma (including sessile serrated polyps greater than or equal to 1cm diameter) [20%] or non- advanced adenoma [31%]; or no colorectal neoplasia [45%]. These estimates are derived from a prospective cross-sectional screening study of 10,000 individuals at average risk for colorectal cancer who were screened with both Cologuard and colonoscopy. (Qing Plascencia. et al, N Engl J Med 2014;370(14):5087-1500.) Cologuard may produce a false negative or false positive result (no colorectal cancer or precancerous polyp present at colonoscopy follow up). A negative Cologuard test result does not guarantee the absence of CRC or advanced adenoma (pre-cancer). The current Cologuard screening interval is every 3 years. ([place] [employer] and U.S. Multi-Society Task Force). Cologuard performance data in a 10,000 patient pivotal study using colonoscopy as the reference method can be accessed at the following location: www.[employer]/results. Additional description of the Cologuard test process, warnings and precautions can be found at www.[employer]vision[employer].com. Stool specimen (specimen) (Rectum) 01/02/2023 11:00 PM CDT 01/04/2023 8:11 PM CDT us Valerie Cortez MD URINE Final Result [facility] (CLIA #:[id number]) [address] [place] [address], * (ABNORMAL) LIPID PANEL W REFLEX MEASURED LDL (11/04/2022 9:36 AM CDT) CHOLESTEROL,TOTAL 165 100 - 199 mg/dL 11/04/2022 6:37 PM CDT [facility] Comment: Cholesterol, Total Reference Ranges Desirable <200 mg/dL Borderline 200-239 mg/dL High >=240 mg/dL TRIGLYCERIDES 121 <150 mg/dL 11/04/2022 6:37 PM CDT [facility] HDL CHOLESTEROL 35(L) >40 mg/dL 6:37 PM CDT [facility] NON-HDL CHOLESTEROL 130 <145 mg/dl 11/04/2022 6:37 PM CDT [facility] CHOL/HDL RATIO 4.71(H) <4.50 11/04/2022 6:37 PM CDT [facility] LDL CHOLESTEROL 106 <=130 mg/dL 11/04/2022 6:37 PM CDT [facility] VLDL CHOLESTEROL 24 <=30 mg/dL 11/04/2022 6:37 PM CDT [facility] PROVIDER ORDERED STATUS RANDOM 11/04/2022 6:37 PM CDT [facility] Blood BLOOD SPECIMEN / Unknown Venipuncture / Unknown 11/04/2022 9:36 AM CDT 11/04/2022 9:40 AM CDT us Trii Jarod DO CHEMISTRY Final Result [facility] [address] [place] [address], [place] from Last 3 Months or Most Recently Relevant to Health Maintenance Additional Health Concerns Infection Onset Date Last Indicated ESBL 10/12/2021 02/28/2024 Insurance MEDICAID MEDICARE PART B HB ONLY MEDICARE PART A HB ONLY [employer] BLUE MR PB ONLY Advance Directives * Full Code (Latest Code Status on File) Date Activated Date Inactivated Comments 10/10/2018 10:18 AM 10/10/2018 8:47 PM * Full Code Date Activated Date Inactivated Comments 07/12/2012 3:55 PM 07/31/2012 1:28 PM Care Teams Glycerin Supervisor Relationship Specialty Start Date End Date Neville [place] [address] [place] [address] PCP - General Family Practice 11/04/22
--- OUTSIDE RECORDS SUMMARY | 2024-03-14 16:05 | XMS_ITS | Clinical Summary ---
Author Organization [facility] Address [address] [place] [address] Care Team Providers Care Enterprise Resource Analyst Name Role Phone Elsewhere, Pcp Primary Care Provider Unavailabl e Source Comments Patient records contain information from all sites at [facility]. For routine questions regarding patient records, call [phone] during business hours, M-F 8:00 AM - 5:00 PM Central Time. Record requests for emergency care only can be directed to [phone] at any time.[facility] Allergies No known active allergies Medications cholecalciferol (VITAMIN D3) 2,000 Unit capsule Take 1 tablet by mouth. 7 Active DME Urological suppliesIndicat ions:Urinary Tract Infection Site Not Specified,Neuro genic Bladder DME Order 1 Unspecified 11 2 Active disposable gloves (Biobrane Gloves Large) misc Use as needed 2 each 11 3 Active Xarelto 10 mg tablet TAKE 1 TABLET(10 MG) BY MOUTH DAILY WITH DINNER 30 tablet 11 4 Active methenamine (Hiprex) 1 gram tablet TAKE 1 TABLET(1 GRAM) BY MOUTH TWICE DAILY 180 tablet 3 4 Active Active Problems Problem Noted Date Diagnosed Date Pain Back 04/27/2023 Thrombosis Deep Vein Personal History 08/17/2022 Anticoagulant Therapy 08/17/2022 Urinary Tract Infection Site Not Specified 04/02 Pressure Injury (Ulcer) Of Right Buttock Stage 3 12/11/2017 Overview (06/29/2021): Right buttock wound Assessment & Plan (08/25/2021 12:14 PM CDT): Pictures taken and uploaded to [facility]. Erich states the wound has been healing and he is here for monitoring of the wound. The wound measures 1.5 cm x 3 x 0.2 cm. The wound bed is white and pink with no drainage. The wound bed was cleansed with saline before a wound culture was obtained. Hysept 0.5% and saline was used to cleanse the wound. Mepilex AG foam border was applied. He had a loose stool and the nursing staff were able to clean him before he went home. Assessment & Plan (07/06/2021 4:32 PM CDT): Wm Is here for wound care of the sharing/stage 3 pressure ulcer on his right buttock. He has a motorized wheelchair with a cushion. He states it has been quite a few years since he has had any mapping done. He is due to be seen in [facility] in August and he will request the mapping at that time. The wound has been longstanding and difficult to heal. He has been having PuraPly applications which Is improving the wound bed. PROCEDURAL PAUSE Procedural pause conducted to verify: Correct patient identity, procedure to be performed, and as applicable, correct side and site, correct patient position, and availability of implants, special equipment or special requirements. the wound was cleansed with saline and Hysept 0.5 %, rinsed With saline and dried. The wound was debrided using a # 3 Circular curette to remove superficial slough and fibrous tissue. The wound was rinse w ith alicia Ine and dried.PuraPly A.m. fenestrated wound matrix 4 cm x 4 cm, LOT [id number] Expiration 09/21/2023 was applied as a full piece on to the wound bed. This was secured with a Mepitel One and Steri-Strips. Skin prep was applied prior to the Steri-Strips. This was covered with a circular foam Tegaderm type dressing. Tape was used to window pain foam dressing to help secured better in place . He will remove the dressing in 1 week clean the wound and then used his Medihoney on a daily to twice daily basis before returning on July 28. He is currently on clindamycin for a swollen left leg. He was seen in [facility]. A DVT was ruled out and he was diagnosed with cellulitis even though there is no wound or erythema. Fortunately, the clindamycin is effective against Staph aureus he has in the buttock wound. Assessment & Plan (06/29/2021 3:36 PM CDT): Pure apply was applied last week. He is here for wound care and 2nd PuraPly application. The area is right on his buttock where he sits. He does have offloading cushions in his wheelchair. He states the dressing was able to be kept on till Monday. He was moved by Saul isaacs from the wheelchair onto the examination cart and placed on his left side. Jared medical reimbursement specialist monitored his position and kept him comfortable on the cart. The wound measures 5.2 x 5 cm x 0.1 deep. The wound bed is now beefy red. PROCEDURAL PAUSE Procedural pause conducted to verify: correct patient identity, procedure to be performed, and as applicable, correct side and site, correct patient position, and availability of implants, special equipment, or special requirements. The wound was cleansed with saline and Hysept 0.5 %, rinse with saline and dried. The wound was debrided using a # 3 circular curette to remove superficial slough and fibrous tissue. Minor bleeding occurred which was self limiting. Pure apply a.m. fenestrated wound matrix 4 cm x 4 cm lot [id number] expiration 09/21/2023 was applied in whole to the wound bed. This was secured with Mepitel 1 and Steri-Strips. This was covered then with Tegaderm to secure the dressing in place. Cover stretch tape was then applied to window pane the Tegaderm in place. He will return 1 week for ongoing wound care. His MANAGER USER INTERFACE will monitor the wound and the dressing. He will contact me with any questions or concerns Assessment & Plan (06/22/2021 4:46 PM CDT): Erich is here for application of PuraPly to the stage III buttock wound he has on his right buttock. He is paraplegic from a cervical spine injury few years ago. He does have an offloading cushion on his wheelchair however this is a nonhealing wound. He is currently on antibiotics for staph infection in the wound and tolerating them well. The wound measures 5 cm x 6 cm and 0.3 deep. The wound bed is pink with some erythema at the distal edge. He was able to be positioned in his chair for the application. Procedural pause conducted to verify: Correct patient, identity, procedure to be performed and as applicable, correct side and site, correct patient position and availability of special requirements. The wound was cleansed with saline and Hysept 0.5%, rinse well with saline and dried. PuraPly a.m. fenestrated wound matrix 3 cm x 4 cm lot :[id number] expiration 06/27/2023 was applied using sterile technique after the wound was debrided using gauze in saline and dried. Mepitel 1 was applied over the pure apply in secured with Steri-Strips. A sterile 4 x 4 was applied over the Mepitel and both the KerraMax. This was held in place with cover stretch tape. He will have the dressing checked twice a day for drainage. Only also dressing will be changed leaving the Mepitel with the pure apply intact. He will return 1 week for ongoing wound care and pure by application. 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 He has a stage III pressure ulcer on the right buttock. He has a wheelchair that is offloading his pressure. This is been a chronic wound that is been difficult to heal. The wound measures approximately 5 x 4.5 cm and superficial. The wound bed is pink and is non healing. The wound was cleansed with saline and pat dry. Wound culture was obtained. Wound was rinse with saline and dried before a Mepilex Ag was applied. He gave permission for Ruben green, tissue regeneration specialist from the [employer] to discuss advance wound care buttocks. A benefit verification form will be sent for application of PuraPly. Will return 1 week for ongoing wound care Assessment & Plan (02/25/2021 4:52 PM ASSISTANT PROFESSOR SCULPTURE): He last saw me in March 2018. He has a MANAGER USER INTERFACE that does twice a day wound care with med hunting and a silver foam. The wound measures 1 cm x 1.5 cm x 0.2 deep. The wound bed is intact however there is a superficial layer of scan that is open. There is no tunneling, no undermining or odor. Wound was cleansed with saline and dried. Wound culture was obtained. The wound was cleansed with saline and Hibiclens rinse well with saline and dried. KerraCel AG was applied into the wound bed covered with a mepilex foam Border. His MANAGER USER INTERFACE will apply Fibracol plus for a day to see if the collagen will jump start the wound healing. They will return to using the medihoney and foam dressing bid. 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 from Last 3 Months Immunizations Name Administration Dates Next Due Tdap 07/25/2013 Family History Medical History Relation Name Comments Asthma Mother Claudia Hypertension Mother Claudia Stroke Paternal Grandfather VADIM Higginbotham Relation Name Status Comments Mother Claudia Paternal Grandfather VADIM Higginbotham Social History Tobacco Use Types Packs/Day Years Used Date Smoking Tobacco: Never Smokeless Tobacco: Never Tobacco Cessation:Counseling Given: Not Answered Alcohol Use Standard Drinks/Week Comments Yes 2 (1 standard drink = 0.6 oz pur e alcohol) socially [facility] Utilities Answer Date Recorded In the past 12 months has e [employer], oil, or water [employer] threatened to shut off services in your home? No 04/27/2023 Humiliation, Afraid, Rape, and Kick questionnair e Answer Date Recorded Within the last year, have y ou been afraid of your partner or ex-partner? No 04/27/2023 Within the last year, have y ou been humiliated or emotionally abused in other ways by your partner or ex-partner? No Within the last year, have y ou been kicked, hit, slapped, or otherwise physically hurt by your partner or ex-partner? No 04/27/2023 Within the last year, have y ou been raped or forced to have any kind of sexual activity by your partner or ex-partner? No 04/27/2023 Social Connection and Isolat ion Panel [NHANES] Answer Date Recorded In a typical week, how many times do you talk on the phone with family, friends, or neighbors? More than three times a week 07/06/2022 How often do you get togethe r with friends or relatives? Once a week 07/06/2022 How often do you attend chur or druze services? More than 4 times per year 07/06/2022 Do you belong to any clubs o r organizations such as adventist groups, unions, fraternal or athletic groups, or school groups? Yes 07/06/2022 How often do you attend meet ings of the clubs or organizations you belong to? More than 4 times per year 07/06/2022 Are you , , di vorced, , never , or living with a partner? 07/06/2022 AUDIT-C Answer Date Recorded Q1: How often do you have a drink containing alc ohol? 2-4 times a month 07/06/2022 Q2: How many drinks containi ng alcohol do you have on a typical day when you are drinking? 1 or 2 07/06/2022 Q3: How often do you have si x or more drinks on one occasion? Never 07/06/2022 Overall Financial Resource Strain (CARDIA) Answe r Date Recorded How hard is it for you to pa y for the very basics like food, housing, medical care, and heating? Not hard at all 07/06/2022 PHQ-2 Answer Date Recorded PHQ-2 Score 0 06/22/2021 [facility] - Occupational Stress Questionnaire Answer Date Recorded Do you feel stress - tense, restless, nervous, or anxious, or unable to sleep at night because your mind is troubled all the time - these days? Only a little 07/06/2022 Exercise Vital Sign Answer Date Recorde d On average, how many days pe r week do you engage in moderate to strenuous exercise (like a brisk walk)? 3 days 07/06/2022 On average, how many minutes do you engage in exercise at this level? 30 min 07/06/2022 Hunger Vital Sign Answer Date Recorded Within the past 12 months, y ou worried that your food would run out before you got the money to buy more. Never true 04/27/19 24 Within the past 12 months, t he food you bought just didn't last and you didn't have money to get more. Never true 04/27/2023 PRAPARE - Transportation Answer Date Re corded In the past 12 months, has l ack of transportation kept you from medical appointments or from getting medications? No 04/13 In the past 12 months, has l ack of transportation kept you from meetings, work, or from getting things needed for daily living? No 04/27/2023 Nutrition Answer Date Recorded Nutrition: EVOO Fat Source Yes 07/06 On average, how many serving s of fruits and vegetables do you eat per day (serving size is equal to 1 cup or approximately the size of a tennis ball)? 2-3 07/06/2022 Dental Answer Date Recorded Dental: Regular Dentist Yes 05/13/19 21 Employment Answer Date Recorded Employment status Employed and actively working without restrictions 07/06/2022 Housing Stability Answer Date Recorded What is your living situation today? I have a [facility] place to live 04/27/2023 Education Answer Date Recorded What is the highest level of school you have completed or the highest degree you have received? Doctorate 08/22/2018 Sex and Gender Information Value Date Recorded Sex Assigned at Male 03/24/2017 7:48 PM ASSISTANT PROFESSOR SCULPTURE Legal Sex Male 6:02 PM ASSISTANT PROFESSOR SCULPTURE Gender Identity Male 03/24/2017 7:48 PM ASSISTANT PROFESSOR SCULPTURE Sexual Orientation Straight 03/24/2017 7: 48 PM ASSISTANT PROFESSOR SCULPTURE Last Filed Vital Signs Vital Sign Reading Time Taken Comments Blood Pressure 92/61 05/01/2023 3:55 PM ASSISTANT PROFESSOR SCULPTURE Pulse 86 05/01/2023 3:55 PM ASSISTANT PROFESSOR SCULPTURE Temperature 36.6 C (97.9 F) 05/01/2023 3:55 PM ASSISTANT PROFESSOR SCULPTURE Respiratory Rate 16 05/01/2023 3:55 PM ASSISTANT PROFESSOR SCULPTURE Oxygen Saturation 99% 05/01/2023 3:55 PM ASSISTANT PROFESSOR SCULPTURE Inhaled Oxygen Concentration - - Weight 97.8 kg (215 lb 9.8 oz) 04/29/2023 1:36 P M ASSISTANT PROFESSOR SCULPTURE Height 180.3 cm (5' 10.98) 04/29/2023 1:[address] Body Mass Index 30.09 04/29/2023 1:36 PM ASSISTANT PROFESSOR SCULPTURE Plan of Treatment Upcoming Encounters Date Type Department Care Team (Late st Contact Info) Description 04/15/2024 2:15 PM ASSISTANT PROFESSOR SCULPTURE Clinical Communication Virtual Review in [place], [place] [address] [place] [address] 04/17/2024 11:30 AM ASSISTANT PROFESSOR SCULPTURE Office Visit Department of Sports Medicine in [place], [place] [address] [place] [address] Navjot Jimenez M.D. [address] [facility] [address] [place] [address] Health Maintenance Due Date Last Done Comments CT Colonography 1964 Colonoscopy 1964 FIT 1964 Hepatitis C Screening 1964 Hepatitis B Vaccines (1 of 3 - 19+ 3-dose series) 06/03/1983 Pneumococcal vaccine (50+ years) (1 of 1 - PCV) 2014 Zoster Vaccines (1 of 2) 2014 Depression Screening (Annual PHQ-2) 03/13/2023 DTaP,Tdap,and Td Vaccines (2 - Td or Tdap) 07/26/2023 07/25/2013 COVID-19 Vaccine (3 - 2023- season) 2023 02/08/2021, 07/12/2020 Influenza Vaccine (#1) 2023 Cologuard 01/11/2026 01/11/2023 Colorectal Cancer Screening 01/11/2026 Fasting Glucose for Diabetes Screening 05/01/2026 05/01/2023, 04/30/2023, 04/29/2023, Additional history exists Lipid (Cholesterol) Screening 11/05/2027 11/04/2022, 09/04/2019 IPV Vaccines Aged Out No longer eligi ble based on patient's age to complete this topic Procedures Procedure Name Priority Date/Time Associated Diagnosis Comments BASIC METABOLIC PANEL, S/P Routine 05/01/2023 6:44 AM ASSISTANT PROFESSOR SCULPTURE from Last 3 Months or Most Recently Relevant to Health Maintenance Results * (ABNORMAL) Basic Metabolic Panel (05/01/2023 6:44 AM ASSISTANT PROFESSOR SCULPTURE) Potassium, S 4.8 3.6 - 5.2 mmol/L 05/01/2023 9:14 AM ASSISTANT PROFESSOR SCULPTURE DTL Sodium, S 134(L) 135 - 145 mmol/L 05/01/2023 9:14 AM ASSISTANT PROFESSOR SCULPTURE DTL Chloride, S 101 98 - 107 mmol/L 05/01/2023 9:14 AM ASSISTANT PROFESSOR SCULPTURE DTL Bicarbonate, S 26 22 - 29 mmol/L 05/01/2023 9:14 AM ASSISTANT PROFESSOR SCULPTURE DTL Anion Gap 7 7 - 15 05/01/2023 9:14 AM ASSISTANT PROFESSOR SCULPTURE DTL BUN (Blood Urea Nitrogen), S 15 8 - 24 mg/dL 05/01/2023 9:14 AM ASSISTANT PROFESSOR SCULPTURE DTL Creatinine 0.53(L) 0.74 - 1.35 mg/dL 05/01/2023 9:14 AM ASSISTANT PROFESSOR SCULPTURE DTL Estimated GFR (eGFR) >90 >=60 mL/min/BSA 05/01/2023 9:14 AM ASSISTANT PROFESSOR SCULPTURE DTL Comment: Estimated GFR calculated using the 2020 CKD_EPI creatinine equation. Calcium, Total, S 9.0 8.6 - 10.0 mg/dL 05/01/2023 9:14 AM ASSISTANT PROFESSOR SCULPTURE DTL Glucose, S 83 70 - 140 mg/dL 05/01/2023 9:14 AM ASSISTANT PROFESSOR SCULPTURE DTL Blood (Blood, Venous) 05/01/2023 6:44 AM ASSISTANT PROFESSOR SCULPTURE 05/01/2023 8:54 AM ASSISTANT PROFESSOR SCULPTURE Fox Johnson M.D. LAB BLOOD ADD-ON Final Result [facility] [address] [place] [address], [place] DTL [facility] [address] [place] [address] from Last 3 Months or Most Recently Relevant to Health Maintenance Insurance [place] MEDICARE [facility] Advance Directives For more information, please contact: [phone] * Full Code (Latest Code Status on File) Date Activated Date Inactivated Comments 04/27/2023 5:33 PM 05/01/2023 8:20 PM Question Answer Comments Full Code: Discussed Care Teams Enterprise Resource Analyst Relationship Specialty Start Date End Date Elsewhere, Pcp PCP - General Family Medicine 04/27/23
--- OUTSIDE RECORDS SUMMARY | 2024-03-14 16:06 | XMS_ITS | Encounter Summary ---
Author Organization [facility] Address [address] [place] [address] Care Team Providers Care Cardiovascular Physician Assistant Name Role Phone Elsewhere, Pcp Primary Care Provider Unavailabl e Encounter Details Date Type Department Care Team (Late st Contact Info) Description 03/12/2024 Clinical Communication Department of Urology in [place], [place] [address] [address] Serina Burgess, TAPE WEAVER, C.N.P. [address] [address] Social History Tobacco Use Types Packs/Day Years Used Date Smoking Tobacco: Never Smokeless Tobacco: Never Alcohol Use Standard Drinks/Week Comments Yes 2 (1 standard drink = 0.6 oz pur e alcohol) socially [facility] Utilities Answer Date Recorded In the past 12 months has [facility] [employer], gas, oil, or water [employer] threatened to shut off services in your [...] week 07/06/2022 How often do you attend [facility] or caodaism services? More than 4 times per year 07/06/2022 Do you belong to any clubs o r organizations such as advent groups, unions, fraternal or athletic groups, or [...] Answer Date Recorded PHQ-2 Score 0 06/22/2021 [facility] - Occupational Stress Questionnaire Answer Date Recorded [...] Date Recorded Dental: Regular Dentist Yes 05/13/19 Employment Answer Date Recorded Employment status Employed and actively working without restrictions 07/06/2022 Housing Stability Answer Date Recorded What is your living situation today? I have a [facility] place to live 04/27/2023 Education Answer Date Recorded What is the highest level of school you have completed or the highest degree you have received? Doctorate 08/22/2018 Sex and Gender Information Value Date Recorded Sex Assigned at Male 03/24/2017 7:48 PM LOAD TEST MECHANIC Legal Sex Male 6:02 PM LOAD TEST MECHANIC Gender Identity Male 03/24/2017 7:48 PM LOAD TEST MECHANIC Sexual Orientation Straight 03/24/2017 7: 48 PM LOAD TEST MECHANIC documented as of this encounter Plan of Treatment Upcoming Encounters Date Type Department Care Team (Late st Contact Info) Description 04/15/2024 2:15 PM LOAD TEST MECHANIC Clinical Communication Virtual Review in [place], [place] [address] [place] [address] 04/17/2024 11:30 AM LOAD TEST MECHANIC Office Visit Department of Sports Medicine in [place], [place] [address] [place] [address] Navjot Jimenez M.D. 600 [facility] [address] [place] [address] documented as of this encounter Visit Diagnoses Diagnosis Retention Urinary Chronic- Primary documented in this encounter Care Teams Cardiovascular Physician Assistant Relationship Specialty Start Date End Date Elsewhere, Pcp PCP - General Family Medicine 04/27/23 documented as of this encounter
--- OUTSIDE RECORDS SUMMARY | 2024-03-14 16:06 | XMS_ITS | Referral Summary ---
Author Organization [facility] Address [address] [place] [address] Care Team Providers Care Furnace Cooler Name Role Phone Elsewhere, Pcp Primary Care Provider Unavailabl e Source Comments Patient records contain information from all sites at [facility]. For routine questions regarding patient records, call [phone] during business hours, M-F 8:00 AM - 5:00 PM Central Time. Record requests for emergency care only can be directed to [phone] at any time.[facility] Encounters Date Type Department Care Team Description 03/12/2024 Clinical Communication Department of Urology in [place], [place] [address] [place] [id number] Serina Burgess, ALDA, C.N.P. from Last 3 Months Allergies No known active allergies Medications cholecalciferol [...] PM CDT): Pictures taken and uploaded to [facility]. Erich states the wound has been [...] He is due to be seen in [facility] in August and he will request the [...] matrix 4 cm x 4 cm, LOT [id number] Expiration 09/21/2023 was applied as a full [...] swollen left leg. He was seen in [facility]. A DVT was ruled out [...] and placed on his left side. Jared veterinary medical officer monitored his position and kept him comfortable [...] matrix 4 cm x 4 cm lot [id number] expiration 09/21/2023 was applied in whole to the wound bed. This was secured with Mepitel 1 and Steri-Strips. This was covered then with Tegaderm to secure the dressing in place. Cover stretch tape was then applied to window pane the Tegaderm in place. He will return 1 week for ongoing wound care. His MEDICINE WORKER will monitor the wound and the dressing. [...] matrix 3 cm x 4 cm lot :[id number] expiration 06/27/2023 was applied using sterile technique [...] Ruben green, tissue regeneration specialist from the [employer] to discuss advance wound care buttocks. A benefit verification form will be sent for application of PuraPly. Will return 1 week for ongoing wound care Assessment & Plan (02/25/2021 4:52 PM LEAD SPRINKLER): He last saw me in March 2018. He has a MEDICINE WORKER that does twice a day wound care [...] covered with a mepilex foam Border. His MEDICINE WORKER will apply Fibracol plus for a day [...] Jimenez Assessment & Plan (02/25/2021 4:55 PM LEAD SPRINKLER): Resolved Spasticity 02/27/2013 Quadriplegia Cervical Five Cervical Seven Incomp lete 01/11/2013 Neurogenic Bowel 07/12/2012 Immunizations Name Administration Dates Next Due Tdap 07/25/2013 Social History Tobacco Use Types Packs/Day Years Used Date Smoking Tobacco: Never Smokeless Tobacco: Never Tobacco Cessation:Counseling Given: Not Answered Alcohol Use Standard Drinks/Week Comments Yes 2 (1 standard drink = 0.6 oz pur e alcohol) socially [facility] Utilities Answer Date Recorded In the past 12 months has e [employer], gas, oil, or water [employer] threatened to shut off services in your [...] week 07/06/2022 How often do you attend formerly [facility] or [facility] services? More than 4 times per year 07/06/2022 Do you belong to any clubs o r organizations such as voodoo groups, unions, fraternal or athletic groups, or [...] Answer Date Recorded PHQ-2 Score 0 06/22/2021 [facility] - Occupational [...] your living situation today? I have a [facility] place to live 04/27/2023 Education Answer Date Recorded What is the highest level of school you have completed or the highest degree you have received? Doctorate 08/22/2018 Sex and Gender Information Value Date Recorded Sex Assigned at Male 03/24/2017 7:48 PM LEAD SPRINKLER Legal Sex Male 6:02 PM LEAD SPRINKLER Gender Identity Male 03/24/2017 7:48 PM LEAD SPRINKLER Sexual Orientation Straight 03/24/2017 7: 48 PM LEAD SPRINKLER Last Filed Vital Signs Vital Sign Reading Time Taken Comments Blood Pressure 92/61 05/01/2023 3:55 PM LEAD SPRINKLER Pulse 86 05/01/2023 3:55 PM LEAD SPRINKLER Temperature 36.6 C (97.9 F) 05/01/2023 3:55 PM LEAD SPRINKLER Respiratory Rate 16 05/01/2023 3:55 PM LEAD SPRINKLER Oxygen Saturation 99% 05/01/2023 3:55 PM LEAD SPRINKLER Inhaled Oxygen Concentration - - Weight 97.8 kg (215 lb 9.8 oz) 04/29/2023 1:36 P M LEAD SPRINKLER Height 180.3 cm (5' 10.98) 04/29/2023 1:[address] Body Mass Index 30.09 04/29/2023 1:36 PM LEAD SPRINKLER Plan of Treatment Upcoming Encounters Date Type Department Care Team (Late st Contact Info) Description 04/15/2024 2:15 PM LEAD SPRINKLER Clinical Communication Virtual Review in [place], [place] [address] [place] [phone] 04/17/2024 11:30 AM LEAD SPRINKLER Office Visit Department of Sports Medicine in [place], [place] [address] [place] [address] Navjot Jimenez M.D. [address] [facility] [address] [place] [address] Procedures Procedure Name Priority Date/Time Associated Diagnosis Comments BASIC METABOLIC PANEL, S/P Routine 05/01/2023 6:44 AM LEAD SPRINKLER from Last 3 Months or Most Recently Relevant to Health Maintenance Results * (ABNORMAL) Basic Metabolic Panel (05/01/2023 6:44 AM LEAD SPRINKLER) Potassium, S 4.8 3.6 - 5.2 mmol/L 05/01/2023 9:14 AM LEAD SPRINKLER DTL Sodium, S 134(L) 135 - 145 mmol/L 05/01/2023 9:14 AM LEAD SPRINKLER DTL Chloride, S 101 98 - 107 mmol/L 05/01/2023 9:14 AM LEAD SPRINKLER DTL Bicarbonate, S 26 22 - 29 mmol/L 05/01/2023 9:14 AM LEAD SPRINKLER DTL Anion Gap 7 7 - 15 05/01/2023 9:14 AM LEAD SPRINKLER DTL BUN (Blood Urea Nitrogen), S 15 8 - 24 mg/dL 05/01/2023 9:14 AM LEAD SPRINKLER DTL Creatinine 0.53(L) 0.74 - 1.35 mg/dL 05/01/2023 9:14 AM LEAD SPRINKLER DTL Estimated GFR (eGFR) >90 >=60 mL/min/BSA 05/01/2023 9:14 AM LEAD SPRINKLER DTL Comment: Estimated GFR calculated using the 2020 CKD_EPI creatinine equation. Calcium, Total, S 9.0 8.6 - 10.0 mg/dL 05/01/2023 9:14 AM LEAD SPRINKLER DTL Glucose, S 83 70 - 140 mg/dL 05/01/2023 9:14 AM LEAD SPRINKLER DTL Blood (Blood, Venous) 05/01/2023 6:44 AM LEAD SPRINKLER 05/01/2023 8:54 AM LEAD SPRINKLER Fox Johnson M.D. LAB BLOOD ADD-ON Final Result [facility] [address] [place] [address], [facility] [address] [place] [address] from Last 3 Months or Most Recently Relevant to Health Maintenance Insurance [place] [employer] MEDICARE [facility] Advance Directives For more information, please contact: [phone] * Full Code (Latest Code Status on File) Date Activated Date Inactivated Comments 04/27/2023 5:33 PM 05/01/2023 8:20 PM Question Answer Comments Full Code: Discussed Care Teams Furnace Cooler Relationship Specialty Start Date End Date Elsewhere, Pcp PCP - General Family Medicine 04/27/23
--- OUTSIDE RECORDS SUMMARY | 2024-03-14 16:06 | XMS_ITS ---
Author Organization [facility] Address [address] [place] [address] Care Team Providers Care Art Class Model Name Role Phone Unavailable Unavailable Unavailable Surgery Details Not on file Complications Check Surgery Details section. Procedure Estimated Blood Loss Check Surgery Details section. Procedure Findings Check Surgery Details section. Procedure Specimens Taken Check Surgery Details section.
== END 2024-03-15 08:50 | disposition home or self-care (01) ==
LOC: WOUND 08:49
PROVIDERS: PCP Student in an Organized Health Care Education/Training Program; Visit Provider Nurse Practitioner Family
DX: L89.893 Pressure ulcer of other site, stage 3 (principal); G82.53 Quadriplegia, C5-C7 complete; Z99.3 Dependence on wheelchair
CPT/HCPCS: 11042

== ENCOUNTER 2024-03-22 13:14 | Outpatient (CLI) | payer MEDICARE, MEDICAID, BC, SELFPAY | END 2024-03-22 13:15 | disposition home or self-care (01) | LOC: WOUND 13:14 | PROVIDERS: PCP Student in an Organized Health Care Education/Training Program; Visit Provider Nurse Practitioner Family | DX: L89.313 Pressure ulcer of right buttock, stage 3 (principal); G82.53 Quadriplegia, C5-C7 complete; Z99.3 Dependence on wheelchair | CPT/HCPCS: 11042 ==

== ENCOUNTER 2024-04-05 13:24 | Outpatient (CLI) | payer MEDICARE, MEDICAID, BC, SELFPAY | END 2024-04-05 13:25 | disposition home or self-care (01) | LOC: WOUND 13:24 | PROVIDERS: PCP Student in an Organized Health Care Education/Training Program; Visit Provider Nurse Practitioner Family | DX: L89.313 Pressure ulcer of right buttock, stage 3 (principal); G82.53 Quadriplegia, C5-C7 complete; Z99.3 Dependence on wheelchair | CPT/HCPCS: 11042 ==

== ENCOUNTER 2024-04-18 09:57 | Outpatient (CLI) | payer MEDICARE, MEDICAID, BC, SELFPAY | END 2024-04-18 09:58 | disposition home or self-care (01) | LOC: WOUND 09:57 | PROVIDERS: PCP Student in an Organized Health Care Education/Training Program; Visit Provider Physician Assistant Surgical | DX: L89.313 Pressure ulcer of right buttock, stage 3 (principal); G82.53 Quadriplegia, C5-C7 complete; Z99.3 Dependence on wheelchair | CPT/HCPCS: 11042 ==

== ENCOUNTER 2024-04-25 10:25 | Outpatient (CLI) | payer MEDICARE, MEDICAID, BC, SELFPAY | END 2024-04-25 10:26 | disposition home or self-care (01) | LOC: WOUND 10:25 | PROVIDERS: PCP Student in an Organized Health Care Education/Training Program; Visit Provider Nurse Practitioner Family | DX: L89.313 Pressure ulcer of right buttock, stage 3 (principal); G82.53 Quadriplegia, C5-C7 complete; Z99.3 Dependence on wheelchair | CPT/HCPCS: 11042; 11045 ==

== ENCOUNTER 2024-05-02 09:54 | Outpatient (CLI) | payer MEDICARE, BC, MEDICAID, SELFPAY | END 2024-05-02 09:55 | disposition home or self-care (01) | LOC: WOUND 09:54 | PROVIDERS: PCP Student in an Organized Health Care Education/Training Program; Visit Provider Nurse Practitioner Family | DX: L89.313 Pressure ulcer of right buttock, stage 3 (principal); G82.53 Quadriplegia, C5-C7 complete; Z99.3 Dependence on wheelchair | CPT/HCPCS: 11042; 11045 ==

== ENCOUNTER 2024-05-09 10:40 | Outpatient (CLI) | payer MEDICARE, MEDICAID, BC, SELFPAY | END 2024-05-09 10:41 | disposition home or self-care (01) | LOC: WOUND 10:40 | PROVIDERS: PCP Student in an Organized Health Care Education/Training Program; Visit Provider Nurse Practitioner Family | DX: L89.313 Pressure ulcer of right buttock, stage 3 (principal); G82.53 Quadriplegia, C5-C7 complete; Z99.3 Dependence on wheelchair | CPT/HCPCS: 97597 ==

== ENCOUNTER 2024-05-24 09:00 | Outpatient (CLI) | payer MEDICARE, BC, MEDICAID, SELFPAY | END 2024-05-24 09:01 | disposition home or self-care (01) | LOC: WOUND 09:01 | PROVIDERS: PCP Student in an Organized Health Care Education/Training Program; Visit Provider Nurse Practitioner Family | DX: L89.313 Pressure ulcer of right buttock, stage 3 (principal); G82.53 Quadriplegia, C5-C7 complete; Z99.3 Dependence on wheelchair | CPT/HCPCS: 11042 ==

== ENCOUNTER 2024-05-30 14:26 | Outpatient (CLI) | payer MEDICARE, BC, MEDICAID, SELFPAY | END 2024-05-30 14:27 | disposition home or self-care (01) | LOC: WOUND 14:26 | PROVIDERS: PCP Student in an Organized Health Care Education/Training Program; Visit Provider Nurse Practitioner Family | DX: L89.313 Pressure ulcer of right buttock, stage 3 (principal); G82.53 Quadriplegia, C5-C7 complete; Z99.3 Dependence on wheelchair | CPT/HCPCS: 97597 ==

== ENCOUNTER 2024-06-13 14:16 | Outpatient (CLI) | payer MEDICARE, BC, MEDICAID, SELFPAY | END 2024-06-13 14:17 | disposition home or self-care (01) | LOC: WOUND 14:17 | PROVIDERS: PCP Student in an Organized Health Care Education/Training Program; Visit Provider Nurse Practitioner Family | DX: L89.313 Pressure ulcer of right buttock, stage 3 (principal); G82.53 Quadriplegia, C5-C7 complete; Z99.3 Dependence on wheelchair | CPT/HCPCS: G0463 ==

== ENCOUNTER 2024-06-27 14:12 | Outpatient (CLI) | payer MEDICARE, BC, MEDICAID, SELFPAY | END 2024-06-27 14:13 | disposition home or self-care (01) | LOC: WOUND 14:12 | PROVIDERS: PCP Student in an Organized Health Care Education/Training Program; Visit Provider Nurse Practitioner Family | DX: G82.53 Quadriplegia, C5-C7 complete (principal); Z99.3 Dependence on wheelchair | CPT/HCPCS: G0463 ==

== ENCOUNTER 2024-09-27 08:51 | Emergency (ER) | payer MEDICARE, BC, MEDICAID, SELFPAY ==
--- OUTSIDE RECORDS SUMMARY | 2024-06-18 14:30 | XMS_ITS | Encounter Summary ---
Author Organization [facility] Address [address] [place] [id number] Care Team Providers Care Software Applications Engineer Name Role Phone Elsewhere, Pcp Primary Care Provider Unavailabl e Reason for Visit * Physical Therapy (Routine) - Authorized Specialty Diagnoses / Procedures Referred By Contac t Referred To Contact Diagnoses Injury Spinal Cord Cervical Subsequent (HCC) Procedures PT or OT eval and treat (first available) Navjot Jimenez M.D. [address] [phone] Phone: tel: fax: [facility] Referral ID Status Reason Start Date Expiration Date V isits Requested Visits Authorized [id number] Authorized 05/10/2024 08/10/2025 99 99 Encounter Details Date Type Department Care Team (Latest Contact Info) Description 06/18/2024 2:30 PM CDT Comprehensive Visit Department of Physical Medicine and Rehabilitation in [place], [place] [address] [place] [phone] Navjot Jimenez M.D. 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 No 05/06/2024 Humiliation, Afraid, Rape, and Kick questionnair e [...] by your partner or ex-partner? No 04/27/2023 Hunger Vital Sign Answer Date Recorded Within the past 12 months, y ou worried that your food would run out before you got the money to buy more. Never true 05/06/19 25 Within the past 12 months, t he food you bought just didn't last and you didn't have money to get more. Never true 05/06/2024 PRAPARE - Transportation Answer Date Re corded In the past 12 months, has l ack of transportation kept you from medical appointments or from getting medications? No 04/14 In the past 12 months, has l ack of transportation kept you from meetings, work, or from getting things needed for daily living? No 05/06/2024 Housing Stability Answer Date Recorded What is your living situation today? I have a [facility] place to live 05/06/2024 Education Answer Date Recorded What is the highest level of school you have completed or the highest degree you have received? Doctorate 08/22/2018 Sex and Gender Information Value Date Recorded Sex Assigned at Male 03/24/2017 7:48 PM [employer]OLDER [employer]ALL Legal Sex Male 6:02 PM [employer]DER [employer]ALL Gender Identity Male 03/24/2017 7:48 PM MOLDER WAX BALL Sexual Orientation Straight 03/24/2017 7: 48 PM MOLDER WAX BALL documented as of this encounter Consult Notes * Mary Madrid P.T., D.P.T., [facility] - 06/18/2024 2:30 PM CDT Physical Therapy Wheelchair Progress Note By co-signing this document, the provider concurs with the therapist's assessment and agrees with the equipment recommendations below. The co-sign date of this document may be considered the completion of the [id number] evaluation. By co-signing this note, the provider certifies the therapy being provided to this patient is reasonable and necessary for the diagnosis or treatment of this patient. SUBJECTIVE Patient's Name: Wm Rodriguez Referring Provider: Navjot Jimenez M.D. History of Present Illness: Patient with C6-7 incomplete DEREK B (broad sensation) since 2012 1. Abnormal Posture 2. Injury Spinal Cord Cervical Subsequent (HCC) 3. Pain Hip Left 4. Primary Osteoarthritis Hip Left 5. Osteoporosis 6. Pain Back 7. Quadriplegia Cervical Five Cervical Seven Incomplete (HCC) 8. Spasticity 9. Dysreflexia Autonomic 10. Neurogenic Bowel 11. 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 Prior Mobility/Functional Transfers Level of [place]: Modified independent Previous Transfer/Mobility Assistance Comments: can do slideboard on own as needed or low pivot with assist Home Living Type of Home: House Home Access: Level entry Precautions Other Precautions: fall, small pressure on RIT (healing) OBJECTIVE Height: 180 cm Weight: 97.8 kg Light Touch: Partial deficits in the RLE, Partial deficits in the LLE Strength - Upper Extremity Screen: Addressed, no concerns noted Strength - Upper Extremity Screen Comments: 5/5 throughout Strength - Lower Extremity Screen: Impaired right & left Strength - Lower Extremity Screen Comments: 0/5 legs Bed Mobility - Supine to Sit Comments: with assist Bed Mobility - Sit to Supine Comments: with assist Bed, Chair, Wheelchair Transfers Comments: low pivots with assist Gait Assessment/Training Alternative Mobility: Patient does not ambulate, uses power wheelchair. Current Wheelchair Power Mobility Device: Power wheelchair Power Wheelchair Controls: Left side controls (Levo) Device Age (Years): 6 Years Vendor: [employer] Daily Time Usage : full Seat/Cushion type: ZummZumm Anatomic Measurements Hip Width (Inches): 19 Inches Seat to Knee (Inches): 20 Inches Knee to Heel (Inches): 19.5 Inches Seat to Shoulder (Inches): 20.5 Inches Seat to Top of Head (Inches): 29 Inches Seat to Elbow (Inches): 6.5 Inches Objective Measures: Assessment Wm Rodriguez is a pleasant 59 y.o. male who [facility] for an physical therapy evaluation. Vendor is [place], Liseth abraham. Patient with C6-C7 spinal cord injury since 2012. He has vague general/gross sensation below level of injury and no motor function below injury level. He has been using a Levo standing power chair for nearly 6 years and uses the standing function everyday. He travels for work approximately once a month and has had negative experiences with airlines transporting his power chair. He also has trouble finding transportation in his power chair once at destination. To protect his power chair he uses a manual wheelchair on work trips and misses out on the benefits of daily standing. He is looking for a manual standing chair for travel purposes. Patient and vendor have heard of one manual chair. Vendor reaching out to company to attempt to arrange a trial of the chair for patient to see and try before committing. Patient aware this will be an out of pocket expense as he should use his benefits for his next hr operations advisor power chair. UPDATE: patient trialed manual standing chair today with vendor.They are working on specs and quote privately. Patient's current chair is fairly worn down form heavy hr operations advisor use. The frame is beaten up and rusted. He is needing more and more frequent maintenance. There is a cracking sound indicating bindingmechanical parts when he uses the stand function. The arm rests and knee blocks are cracked and worn down with little or no padding remaining. The metal bar holding the knee blocks is broken. It will be ideal to begin working on his next power standing chair now given his current chair is having more and more costly issues. Given his success with the standing function of his Levo chair, recommend his next chair be a standing chair as well. We arranged for [employer] customer engagement representative to come show him a front wheel and mid wheel standing power chair in the near future. Vendor is better able to order and acquire replacement parts for [employer] chairs as they are fairly popular amongst power wheelchair users and they have a rep nearby who is very helpful. Patient is free to chose whichever brand he prefers. In terms of power functions his needs and justifications are cited here and further below. He needspower recline to aide in self-cathing. He needs tilt function for pressure relief maneuvers especially given his history of pressure wounds. He needs seat elevator to reach high kitchen surfaces to prepare himself a meal. Seat elevator will also make his pivot transfers more safe and manageable by always creating a down hill transfer. He will need power elevating leg rests for edema management.These essential 4 power functions are also needed to utilize power standing. After our visit current PT spoke with Dr. Klein who states they did not address the new power chair so he will need to be seen again for a face to face with a MD, RAILS DEVELOPER, or qualifying provider. At this time, it was deemed the patient would benefit from the recommended wheelchair equipment as outlined below. The patient, therapist, and vendor reviewed the wheelchair brands, seating system options, appropriate accessories, and specs for the recommended chair. The patient was agreeable to all discussed. Seating Assessment Mobility base type: power wheelchair Justification: Patient is unable to ambulate to accomplish the required mobility related ADLs. The patient does not have the ability to stand safely for the amount of time needed to accomplish the following activities: hygiene, dressing, eating The patient has expressed willingness to use the recommended mobility device for use in the home. The patient will use the mobility device being recommended in the home environment specifically to allow for improved completion of these ADL activities. The patient has sufficient upper extremity function and/or physical and mental capabilities needed to safely and independently use this mobility device in the home during a typical day. The patient has a caregiver who is available, willing, and able to provide assistance with the wheelchair. The patient has a neurological condition that causes inability to safely and effectively ambulate to accomplish the required mobility related activities of daily living. Power seat functions: power tilt power recline power elevating leg rests Justification: This feature is necessary for the patient due to being seated several hours each day and unable to independently relieve pressure on seated surface. Postural Support: Patient is beginning to to show changes in seated postural alignment related to diminished trunk control and prolonged unsupported seating. The tilt feature will allow the patient to relieve pressure while seating in the wheelchair eliminating the need to be assisted with transfers by caregiver several times throughout the day. Pressure Relief: Patient is at risk for skin breakdown due to inability to perform independent weight shifts or pressure relief. The tilting feature of this wheelchair in conjunction with a pressure relieving cushion will help mitigate those risks. Fatigue: The tilting mechanism will allow the patient to reposition differently as functional ability fluctuates through the day. Patient often requires rests or changes in position because of fatigue or to accomplish a different activity that requires patient to be repositioned. The tilting feature on this chair will enable those activities. Patient is unable to position self in a manner that allows utilization of the upper extremities effectively. Patient is unable to perform independent weight shifts. Pressure Relief: Patient requires the ability to adjust body position relative to gravity to alleviate pressure on seated surfaces and to adjust center of gravity posteriorly to increase trunk stability while seated in the wheelchair. This will help patient achieve a higher level of independence and prevent pressure sores while in the seated position when used in concert with an appropriate cushion. Shear Reduction: The recline feature must have a mechanical shear reduction component so that the relationship between the back support and patient's back is maintained. The friction and shear forcesthat are exerted during the recline and recovery process will exceed patient's ability to maintain correct posture or recover from an asymmetrical or dependant position caused by the changing positions of the recline and recovery process. Postural Support: The patient's trunk instability requires constant support so that mid-line, supported posture can be maintained. This is typically achieved through use of lateral trunk supports. The shear reduction component will help accommodate trunk weakness and maintain mid-line orientation by maintaining correct location of lateral trunk supports in relation to the patient's body while using power recline. to create a safe, clean, open access point for self cathing. Elevating leg rests are required as patient requires both feet to be elevated to help reduce dependent edema and swelling. Patient is unable to independently adjust these supports. Patient requires a power controlled device so that a joystick or a switch can be used to operate them when needed. This feature is especially needed when the recline feature is employed. If the wheelchair is reclined without elevating the leg rests undue strain and discomfort will be experienced because the legs are left in a dependent position. Patient requires articulating leg rest so foot plates can move away from her when going into stand to allow weight bearing with knees extended. Power electronics: multiple seat function control kit expandable controller expandable controller harness Justification: This individual electronic component is pat of the required electronics for interfacing the power wheelchair with the multi-function powered seating system. This seating system has multiple components which will need to be driven independently from each other to accomplish their therapeutic effect. This power controller component is required to be able to drive those powered seating devices. This joystick/expandable controller is programmable to allow for multiple driving environments and to control additional seat functions and alternative drive controls. It can be programmed to keep patient safely driving in an appropriate manner in the wide variety ofenvironments used by patient on a daily basis. The patient will need a drive programmed for very slow driving within the confines of the bathroon and bedroom so that the chair can be controlled well enough to position it exactly as needed so patient can independently transfer. In this setting patient needs a very sensitive steering setting to accurately control movements in these confined areas. The harness attaches the expandable controller to the power wheelchair to operate the drive functions. Seating system: back cushion, positioning with posterior seat cushion, adjustable combination skin protection and positioning Justification: This custom sized, contoured back replaces a standard fabric upholstery and is required to provide sufficient posterior and lateral back support to promote erect posture while sitting in the wheelchair. Standard upholstery does not provide adequate support. Standard upholstery causes the patient to sit in a rounded posture, reduces upper extremity efficiency and increase strain on the upper quadrant. This back is designed to work in conjunction with a seat cushion that has a postural control component to address the need for additional postural support. Patient sits in his wheelchair for several hours each day. The provision of this cushion will help to mitigate that risk and reduce the likelihood that pt. will experience skin breakdown. The risk for skin breakdown cannot be mitigated by a standard foam cushion. This cushion can be adjusted to accommodate the specific and changing needs. An adjustable positioning seat cushion must be utilized. Upper extremity support: height adjustable Justification: The height adjustable feature is also necessary for approximation to table tops and work surfaces. Postural support: anterior chest support/strap Justification: The recommended anterior chest support is required for trunk support because without it, the patient falls forward. This positioning device is necessary to assist in alignment of the trunk due to diminished trunk control and postural asymmetries. to support upper trunk when standing function is utilized Pelvic support: lateral hip supports pelvic belt, 2-point Justification: The recommended pelvic support facilitates neutral position of the thighs and lower legs. The recommended pelvic support provides rigid control for abnormal tone. with hardware for mounting The recommended pelvic support reduces tendency for patient to slide forward into posterior pelvic tilt and reduces shearing on sitting surface as a result. Lower extremity support: foot positioners Justification: If the feet are not secured while seated, postural support and alignment will be adversely affectedand the risk of injury to the lower extremities is increased. toe loops to keep feet appropraitely aligned when sitting and standing in power chair Head and neck support: multi-axial positioning headrest swing away adjustable hardware Justification: The recommended headrest is required for head/neck support during tilt/recline. The recommended headrest is required for safety when transported in a vehicle. Hardware needs to be adjustable to get the positioning device in the appropriate place supporting the patient, and to swing away for transfers or personal cares. Other features/accessories: mortgage loan interviewer retractable joystick mount Justification: A battery is required to power the motor on the wheelchair. A rail car repair carman is required to charge the battery for the wheelchair. A swing-away or retractable joystick mount is required to allow table acess. Power Seat elevator: Other power functions Power seat elevator ? Justification: This will allow him to always perform a downhill transfer which is safer and less fatiguing. The recommended seat?elevator will?allow him to reach the cupboards and give him independence with meal preparation. Power Seat elevator: Other power functions Power stand Power Stand: A separate [id number] standing device is not appropriate because the patient is unable to independently use or achieve frequency of standing required for health outcomes and functional use. In addition, a separate standing device does not provide for various degrees of elevation over a period of time to achieve standing for proper alignment and to effective manage orthostatic hypotension. Further, the cost of a separate standing device along with a power wheelchair with required seat functions is comparable to integrated standing power wheelchair being recommended. It would not be considered a least costly, equality effective option. The integrated standing power wheelchair creates a muchmore functional, accessible and value-added standing means for the patient. The power standing function with allow her to independently stand at any point throughout her day, increasing the frequencyof standing and thereby decreasing pain and pressure associated with static positioning. He will not require the assist of 1-2 caregivers to achieve standing like he would with a separate standing device. Chest Support Bar and Chest Vest When sitting in the wheelchair, or when using the standing function on the power wheelchair, a chest vest and bar are necessary to prevent the patient from falling out of the wheelchair and keep trunk aligned to midline. ?The chest vest and bar are an important safeguard for preventing an injury from falling. ?Chest support will require hardware to mount it. Stand and Drive Power Function As stated above, the power standing function provides the patient with the movement opportunity to stand, decreasing hypertonicity, contractures and the chances of pressure injury of the skin. ?However, without the drive function available to be used on the power wheelchair, the patient would be stuck in the standing position without the availability of moving toward a cabinet or across a room inthe home. ? Knee Support and Mounting Hardware The power standing function is impossible to use without adequate knee support and the mounting hardware necessary to affix the support to the wheelchair. ?The patient lacks the lower extremity strength and active range of motion necessary for standing, so without this feature the power stand function would not be usable by the patient. Articulating legs are needed to elongate legs in standing function. A seat elevator is required to work in conjunction with actuators to bring patient into standing. Rehab Potential: Mr. Rodriguez has Good potential to achieve established physical therapy goals within the time frame outlined below, provided he actively participates in his physical therapy treatment plan and home program. Functional Goals and Timeframes: PT Goal #1: By the end of today's session, the client and/or caregiver will verbalize understandingof power mobility options. Goal met. PT Goal #2: By the end of today's session, the client and/or caregiver will verbalize understandingof manual wheelchair options. Goal met. PT Goal #3: By the end of the episode of care, the client will be fit with their permanent equipment when it arrives and will be able to sit safely in the wheelchair without compromising skin integrity or joint health. PT Goal #4: By the end of the episode of care, the client's equipment will be modified and replacedand they will be able to sit safely in the wheelchair without compromising skin integrity or joint health. Plan Patient agrees with the plan of care and goals. Treatment Plan: Start of Plan of Care: 06/18/2024 Number of Visits: up to 2 visits over 90 days Plan: Plan of care initiated Treatment interventions may include: Other PT Interventions: Seating Clinic Clinical Presentation: Evolving Number of Examination elements: 4+ Clinical Decision Making: Moderate complexity clinical decision making Time Spent with Patient Evaluations PT Eval - Mod Complexity: 15 min Therapeutic Interventions Wheelchair Management (min): 31 min Time Tracking Total Timed Units (min): 31 min Total Treatment Time (min): 46 min The author of this note has no financial relationship with the [employer] rehabilitation technology vendor/supplier. Addendum: co-signer changed based on face to face visit. End of addendum. 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
--- OUTSIDE RECORDS SUMMARY | 2024-08-06 16:00 | XMS_ITS | Encounter Summary ---
Author Organization [facility] Address [address] [place] [id number] Care Team Providers Care Gas Fitter Helper Name Role Phone Elsewhere, Pcp Primary Care Provider Unavailabl e Reason for Visit * Reason Comments Spinal Cord Injury * Outpatient (Routine) - Closed Specialty Diagnoses / Procedures Referred By Contact Referred To Contact Physical Medicine and Rehabilitation Diagnoses Injury Spinal Cord Cervical Subsequent (HCC) Enio Klein M.D. [address] [place] [address] Phone: tel: fax: [facility] Referral ID Status Reason Start Date Expiration Date Visits Re quested Visits Authorized [id number] Closed 07/08/2024 01/07/2026 1 1 Encounter Details Date Type Department Care Team (Latest Contact Info) Description 08/06/2024 4:00 PM CDT Telemedicine Department of Physical Medicine and Rehabilitation in [place], [place] [address] [place] [phone] Adalberto Francois M.D. [address] [place] [phone] Injury Spinal Cord Cervical Subsequent (HCC) (Primary Dx) Discharge Disposition: Home or Self Care Social History Tobacco Use Types Packs/Day Years Used Date Smoking Tobacco: Never Smokeless Tobacco: Never Alcohol Use Standard Drinks/Week Comments Yes 2 (1 standard drink = 0.6 oz pur e alcohol) socially [facility] Utilities Answer Date Recorded In the past 12 months has [employer], gas, oil, or water [employer] threatened to shut off services in your [...] your living situation today? I have a [facility] place to live 05/06/2024 Education Answer Date Recorded What is the highest level of school you have completed or the highest degree you have received? Doctorate 08/22/2018 Sex and Gender Information Value Date Recorded Sex Assigned at Male 03/24/2017 7:48 PM TIME CLERK Legal Sex Male 6:02 PM TIME CLERK Gender Identity Male 03/24/2017 7:48 PM TIME CLERK Sexual Orientation Straight 03/24/2017 7: 48 PM TIME CLERK documented as of this encounter Progress Notes * Adalberto Francois M.D. - 08/06/2024 4:00 PM CDT SUBJECTIVE VIDEO VISIT REQUESTING PROVIDER Enio Klein M.D. 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 He was seen by Dr. Klein on 06/18/2024 for wheelchair evaluation. He states that he has had a standing power chair for the past 6 years. He has realized that the manual chair with standing feature that he discussed with Dr. Klein is not practical as it requires a large amount of upper extremity strength. Further he notes that this will be difficult for him to use outside on soft surfaces. He has been safely using a powerwheelchair in his home previously, and does not see any architectural barriers to having an updatedchair. As noted in Dr. Klein' note, he is standing up to 5 hours per day. His most recent bone mineral density in May of 2024 did show an increase in hip bone mineral density both objectively and with regard to T-score. This increase was greater than lb significant change. 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 When he waslast seen by Dr. Klein, it was recommended that he abstain from exercise walking. In discussing this further, he notes no clicking or grinding with movement. He has not noticed any neurologic changes recently. He is reluctant to pursue surgery, and has spoken with Dr. Ramos about this in the past. REVIEW OF SYSTEMS Negative except as in HPI OBJECTIVE There were no vitals taken for this visit. PHYSICAL EXAM General: Pleasant, in NAD HEENT: EOMI Pulm: Speaking in full sentences without noted SOB Psych: Engaged, appropriate DIAGNOSTICS Right Total Hip results: Exam Date BMD T-score 04/08/2020 0.772 g/cm2 -1.9 05/16/2024 0.824 g/cm2 -1.5 Change vs. Previous (difference): 0.052 g/cm2 *Change vs. 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 He does notably have a large Charcot spine deformity at L3, though this appears stable. In discussion with him today, he would now prefer a powered wheelchair with standing feature to update his current PWC. I will discuss the logistics of this order with Dr. Klein. I have met face to face with Wm Rodriguez about the medical need for a mobility device. Wm Rodriguez requires a mobility device in their home environment for self-cares and mobility. Power wheelchair is necessary because Wm Rodriguez is non-ambulatory; no gait aid will be safe and effective for functional mobility and patient requires a wheelchair. Wm Rodriguez has the following medical conditions which adversely impact safe, efficient and independent ambulation: Tetraplegia . It has been determined that Wm Rodriguez is safer and more independent in situations and environments that simulate His home layout with this recommended wheelchair. A power wheelchair is required because Wm Rodriguez is not able to self-propel an optimally configured manual wheelchair effectively enough to complete mobility related activities of daily living safely, in a timely manner, or independently and has demonstrated the ability to safely operate a power wheelchair. 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 Wm Rodriguez requires this wheelchair for in-home mobility on a purchase is recommended. . Wm Rodriguez requires the wheelchair with the recommended features outlined in the therapist's evaluation, as they are medically necessary and represent the least costly alternatives. EDUCATION We discussed the diagnosis and treatment plan in detail. The patient expressed understanding of thecontent. No apparent learning barriers were identified; learning preferences include listening. I spent 28 minutes face to face and non-face to face caring for the patient today. Signed by: Adalberto Francois M.D. 08/06/2024 4:44 PM CDT documented in this encounter Plan of Treatment Not on file documented as of this encounter Visit Diagnoses Diagnosis Injury Spinal Cord Cervical Subsequent (HCC)- Primary documented in this encounter Care Teams Gas Fitter Helper Relationship Specialty Start Date End Date Elsewhere, Pcp PCP - General Family Medicine 04/27/23 documented as of this encounter
--- OUTSIDE RECORDS SUMMARY | 2024-09-27 08:53 | XMS_ITS | Encounter Summary ---
Author Organization [facility] Address [address] [place] [address] Care Team Providers Care Hearing Aid Technician Name Role Phone Elsewhere, Pcp Primary Care Provider Unavailabl e Reason for Visit * Reason Onset Date Comments Med Refill 09/07/2024 Encounter Details Date Type Department Care Team (Late st Contact Info) Description 09/09/2024 Refill Department of Urology in [address] [phone] Kimberly Palacios, [facility] [address] [phone] Med Refill Social History Tobacco Use Types Packs/Day Years Used Date Smoking Tobacco: Never Smokeless Tobacco: Never Alcohol Use Standard Drinks/Week Comments Yes 2 (1 standard drink = 0.6 oz pur e alcohol) socially [facility] Utilities Answer Date Recorded In the past 12 months has [facility], gas, oil, or water [employer] threatened to shut off services in your [...] your living situation today? I have a [facility] place to live 05/06/2024 Education Answer Date Recorded What is the highest level of school you have completed or the highest degree you have received? Doctorate 08/22/2018 Sex and Gender Information Value Date Recorded Sex Assigned at Male 03/24/2017 7:48 PM SHEET TAKER Legal Sex Male 6:02 PM SHEET TAKER Gender Identity Male 03/24/2017 7:48 PM SHEET TAKER Sexual Orientation Straight 03/24/2017 7: 48 PM SHEET TAKER documented as of this encounter Plan of Treatment Not on file documented as of this encounter Visit Diagnoses Diagnosis Neurogenic Bladder- Primary Urinary Tract Infection Site Not Specified documented in this encounter Care Teams Hearing Aid Technician Relationship Specialty Start Date End Date Elsewhere, Pcp PCP - General Family Medicine 04/27/23 documented as of this encounter
--- OUTSIDE RECORDS SUMMARY | 2024-09-27 08:53 | XMS_ITS | Encounter Summary ---
Author Organization [facility] Address [address] [place] [address] Care Team Providers Care Frame Straightener Name Role Phone Elsewhere, Pcp Primary Care Provider Unavailabl e Encounter Details Date Type Department Care Team (Latest Contact Info) Description 09/02/2024 Clinical Communication Department of Physical Medicine and Rehabilitation in [place], [place] [address] [place] [phone] Adalberto Francois M.D. [address] [place] [phone] Social History Tobacco Use Types Packs/Day Years Used Date Smoking Tobacco: Never Smokeless Tobacco: Never Alcohol Use Standard Drinks/Week Comments Yes 2 (1 standard drink = 0.6 oz pur e alcohol) socially [facility] Utilities Answer Date Recorded In the past 12 months has [facility] [employer], gas, oil, or water [email or web address] threatened to shut off services in your [...] your living situation today? I have a [facility] place to live 05/06/2024 Education Answer Date Recorded What is the highest level of school you have completed or the highest degree you have received? Doctorate 08/22/2018 Sex and Gender Information Value Date Recorded Sex Assigned at Male 03/24/2017 7:48 PM PARTRIDGE FARMER Legal Sex Male 6:02 PM PARTRIDGE FARMER Gender Identity Male 03/24/2017 7:48 PM PARTRIDGE FARMER Sexual Orientation Straight 03/24/2017 7: 48 PM PARTRIDGE FARMER documented as of this encounter Plan of Treatment Not on file documented as of this encounter Visit Diagnoses Not on filedocumented in this encounter Care Teams Frame Straightener Relationship Specialty Start Date End Date Elsewhere, Pcp PCP - General Family Medicine 04/27/23 documented as of this encounter
--- OUTSIDE RECORDS SUMMARY | 2024-09-27 08:53 | XMS_ITS | Encounter Summary ---
Author Organization [facility] Address [address] [place] [id number] Care Team Providers Care Chef Head Name Role Phone Elsewhere, Pcp Primary Care Provider Unavailabl e Reason for Visit * Reason Onset Date Comments Med Refill 09/07/2024 Encounter Details Date Type Department Care Team (Late st Contact Info) Description 09/07/2024 Refill Department of Vascular Medicine in [place], [place] [address] [place] [phone] Preeti Martínez P.A.-C. [address] [place] [phone] Med Refill Social History Tobacco Use Types Packs/Day Years Used Date Smoking Tobacco: Never Smokeless Tobacco: Never Alcohol Use Standard Drinks/Week Comments Yes 2 (1 standard drink = 0.6 oz pur e alcohol) socially [facility] Utilities Answer Date Recorded In the past 12 months has [facility] [employer] gas, oil, or water [employer] threatened to shut off services in your [...] your living situation today? I have a [facility] place to live 05/06/2024 Education Answer Date Recorded What is the highest level of school you have completed or the highest degree you have received? Doctorate 08/22/2018 Sex and Gender Information Value Date Recorded Sex Assigned at Male 03/24/2017 7:48 PM OPTICAL FABRICATION TECHNICIAN Legal Sex Male 6:02 PM OPTICAL FABRICATION TECHNICIAN Gender Identity Male 03/24/2017 7:48 PM OPTICAL FABRICATION TECHNICIAN Sexual Orientation Straight 03/24/2017 7: 48 PM OPTICAL FABRICATION TECHNICIAN documented as of this encounter Miscellaneous Notes * Telephone Encounter - Portia Zazueta - 09/09/2024 8:[address] Rodriguez, I have renewed your Xarelto at this time after reviewing recent clinical notes and labs. Please have this renewed by your primary care provider when it expires. Thank you. Jennifer Martínez P.A.-C. (09/12/23) documented in this encounter Plan of Treatment Not on file documented as of this encounter Visit Diagnoses Not on filedocumented in this encounter Care Teams Chef Head Relationship Specialty Start Date End Date Elsewhere, Pcp PCP - General Family Medicine 04/27/23 documented as of this encounter
--- OUTSIDE RECORDS SUMMARY | 2024-09-27 08:53 | XMS_ITS | Clinical Summary ---
Author Organization [facility] Address [address] [place] [address] Care Team Providers Care Hide Curer Name Role Phone Elsewhere, Pcp Primary Care Provider Unavailabl e Source Comments Patient records contain information from all sites at [facility]. For routine questions regarding patient records, call [phone] during business hours, M-F 8:00 AM - 5:00 PM Central Time. Record requests for emergency care only can be directed to [phone] at any time.[facility] Allergies No known active allergies Medications cholecalcifero l (VITAMIN D3) 2,000 Unit capsule Take 1 tablet by mouth. 10/01/19 17 Active DME Urological suppliesIndica tions:Urinary Tract Infection Site Not Specified,Neur ogenic Bladder DME Order 1 Unspecified 11 12/07/19 22 Active disposable gloves (Biobrane Gloves Large) misc Use as needed 2 each 11 05/14/19 23 Active Xarelto 10 mg tablet TAKE 1 TABLET(10 MG) BY MOUTH DAILY WITH DINNER 30 tablet 11 09/12/19 24 Active WHEELCHAIR MISC Wheelchair part-hinge for back wheel 10/26/19 23 Active methenamine (Hiprex) 1 gram tabletIndicati ons:Neurogenic Bladder,Urinar y Tract Infection Site Not Specified Take 1 tablet (1 g total) by mouth 2 (two) times a day. 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 Erich states the wound has been healing [...] He is due to be seen in [facility] in August and he will request the [...] matrix 4 cm x 4 cm, LOT [id number] Expiration 09/21/2023 was applied as a full [...] swollen left leg. He was seen in [facility]. A DVT was ruled out [...] placed on his left side. Jared medical instrument technician monitored his position and kept him comfortable [...] matrix 4 cm x 4 cm lot [id number] expiration 09/21/2023 was applied in whole to the wound bed. This was secured with Mepitel 1 and Steri-Strips. This was covered then with Tegaderm to secure the dressing in place. Cover stretch tape was then applied to window pane the Tegaderm in place. He will return 1 week for ongoing wound care. His FINISHING OPERATOR will monitor the wound and the dressing. [...] matrix 3 cm x 4 cm lot :[id number] expiration 06/27/2023 was applied using sterile technique [...] Ruben green, tissue regeneration specialist from the [employer] to discuss advance wound care buttocks. A benefit verification form will be sent for application of P[employer]. Will return 1 week for ongoing wound care Assessment & Plan (02/25/2021 4:52 PM [employer]): He last saw me in March 2018. He has a FINISHING OPERATOR that does twice a day wound care [...] covered with a mepilex foam Border. His FINISHING OPERATOR will apply Fibracol plus for a day [...] Jimenez Assessment & Plan (02/25/2021 4:55 PM [employer]): Resolved Spasticity 02/27/2013 Quadriplegia Cervical Five Cervical Seven Incomp lete 01/11/2013 Neurogenic Bowel 07/12/2012 Encounters Date Type Department Care Team Description 09/09/2024 Refill Department of Urology in [address] [phone] Kimberly Palacios, SERINA, P.A.-C., P.A. Med Refill 09/07/2024 Refill Department of Vascular Medicine in [place], [place] [address] [place] [address] Preeti Martínez P.A.-C. Med Refill 09/02/2024 Clinical Communication Department of Physical Medicine and Rehabilitation in [place], [place] [address] [place] [phone] Adalberto Francois M.D. 08/27/2024 Clinical Communication Department of Physical Medicine and Rehabilitation in [address] [phone] Adablerto Francois M.D. Error 08/23/2024 Orders Only Department of Physical Medicine and Rehabilitation in [place], [place] [address] [place] [phone] Adalberto Francois M.D. 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 Injury Spinal Cord Cervical Subsequent (HCC) (Primary Dx) Discharge Disposition: Home or Self Care 07/09/2024 4:00 PM CDT Infusion Department of Infusion Therapy in [place], [place] [address] [phone] Aaliyah Alamo M.D. Osteoporosis (Primary Dx) 07/09/2024 2:43 PM CDT - 07/09/2024 11:59 PM CDT Hospital Encounter Department of Laboratory Medicine in [place], [place] [address] [place] [phone] Aaliyah Alamo M.D. Osteoporosis Discharge Disposition: Home or Self Care 07/09/2024 Orders Only Division of Endocrinology in [place], [place] [address] [place] [address] Aaliyah Alamo M.D. 07/08/2024 Orders Only Department of Physical Medicine and Rehabilitation in [place], [place] [address] [place] [address] Enio Klein M.D. Injury Spinal Cord Cervical Subsequent (HCC) (Primary Dx) 07/03/2024 Results Follow-Up Division of Endocrinology in [place], [place] [address] [place] [address] Aaliyah Alamo M.D. Cystatin C with Estimated GFR, Creatinine with Estimated GFR 06/28/2024 11:59 AM CDT - 06/28/2024 11:59 PM CDT Hospital Encounter Department of Laboratory Medicine in [place], [place] [address] [place] [phone] Aaliyah Alamo M.D. Osteoporosis Discharge Disposition: Home or Self Care from Last 3 Months Immunizations Immunization Administration Dates Next Due Tdap 07/25/2013 Family History Medical History Relation Name Comments Asthma Mother Claudia Hypertension Mother Claudia Stroke Paternal Grandfather VADIM Katsisi Relation Name Status Comments Mother Claudia Paternal Grandfather VADIM Katsisi Social History Tobacco Use Types Packs/Day Years Used Date Smoking Tobacco: Never Smokeless Tobacco: Never Tobacco Cessation:Counseling Given: Not Answered Alcohol Use Standard Drinks/Week Comments Yes 2 (1 standard drink = 0.6 oz pur e alcohol) socially [facility] [employer] Answer Date Recorded In the past 12 months has e [place], gas, oil, or water [employer] threatened to shut off services in your [...] living situation today? I have a [facility] place to live 05/06/2024 Education Answer Date Recorded What is the highest level of school you have completed or the highest degree you have received? Doctorate 08/22/2018 Sex and Gender Information Value Date Recorded Sex Assigned at Male 03/24/2017 7:48 PM [employer]ILD C[employer] Legal Sex Male 6:02 PM [employer] Gender Identity Male 03/24/2017 7:48 PM [employer] Sexual Orientation Straight 03/24/2017 7: 48 PM [employer] Last Filed Vital Signs Vital Sign Reading Time Taken Comments Blood Pressure 93/58 07/09/2024 3:59 PM CDT Pulse 74 07/09/2024 3:59 PM CDT Temperature 36 C (96.8 F) 07/09/2024 3:59 PM CDT Respiratory Rate 16 05/01/2023 3:55 PM [employer] Oxygen Saturation 99% 07/09/2024 3:59 PM CDT Inhaled Oxygen Concentration - - Weight 97.8 kg (215 lb 9.8 oz) 04/29/2023 1:36 P M [employer] Height 180.3 cm (5' 10.98) 04/29/2023 1:[address] Body Mass Index 30.09 04/29/2023 1:36 PM [employer] Plan of Treatment Health Maintenance Due Date Last Done Comments CT Colonography 1965 Colonoscopy 1965 FIT 1965 Hepatitis C Screening 1965 Pneumococcal vaccine (50+ years) (1 of 1 - PCV) 2014 Zoster Vaccines (1 of 2) 2014 DTaP,Tdap,and Td Vaccines (2 - Td or Tdap) 07/26/2023 07/25/2013, 06/10/2004 COVID-19 Vaccine (3 - season) 2023 02/08/2021, 07/12/2020 Depression Screening (Annual PHQ-2) 03/13/2024 Influenza Vaccine (#1) 2024 Cologuard 01/03/2026 01/03/2023 Colorectal Cancer Screening 01/03/2026 Fasting Glucose for Diabetes Screening 05/01/2026 05/01/2023, 04/30/2023, 04/29/2023, Additional history exists Lipid (Cholesterol) Screening 11/05/2027 11/04/2022, 09/04/2019 Hepatitis B Vaccines Aged Out No long er eligible based on patient's age to complete this topic IPV Vaccines Aged Out No longer eligi ble based on patient's age to complete this topic Procedures Procedure Name Priority Date/Time Associated Diagnosis Comments CREATININE WITH EGFR, S/P Routine 07/09/2024 3:12 PM CDT Osteoporosis CALCIUM, TOT, S/P Routine 07/09/2024 3:1 2 PM CDT Osteoporosis CREATININE WITH EGFR, S/P Routine 06/28/2024 12:09 PM CDT Osteoporosis CYSTATIN C WITH EGFR Routine 06/28/2024 12:09 PM CDT Osteoporosis BASIC METABOLIC PANEL, S/P Routine 05/01/2023 6:44 AM [employer] from Last 3 Months or Most Recently Relevant to Health Maintenance Results * (ABNORMAL) Creatinine with Estimated GFR (07/09/2024 3:12 PM CDT) Only the most recent of2 resultswithin the time period is included. Creatinine 0.51(L) 0.74 - 1.35 mg/dL 07/09/2024 3:55 PM CDT OWAT Estimated GFR (eGFR) >90 >=60 mL/min/BSA 07/09/2024 3:55 PM CDT OWAT Comment: Estimated GFR calculated using the 2020 CKD_EPI creatinine equation. Blood (Blood, Venous) 07/09/2024 3:12 PM CDT 07/09/2024 3:21 PM CDT us Aaliyah Alamo M.D. LAB BLOOD ADD-ON Final Res ult Performing Organization Address City/[facility]/ZIP Co de Phone Number [facility] [address] [place] [address], [place] OWAT [facility] [place] [address] [place] [address] * Calcium, Total (07/09/2024 3:12 PM CDT) Calcium, Total, P 9.4 8.8 - 10.2 mg/dL 07/09/2024 3:55 PM CDT OWAT Blood (Blood, Venous) 07/09/2024 3:12 PM CDT 07/09/2024 3:21 PM CDT Aaliyah Alamo M.D. LAB BLOOD ADD-ON Final Res ult Performing Organization Address [facility] Co de Phone Number [facility] [address] [place] [address], [facility] OWAT [facility] [place] [address] [place] [address] * Cystatin C with Estimated GFR (06/28/2024 12:09 PM CDT) eGFR by Cystatin C 66 >60 mL/min/BSA 06/29/2024 9:40 AM CDT DTL Comment: Estimated GFR calculated using the CKD-EPI Cystatin C (2011) equation. ----ADDITIONAL INFORMATION---- Cystatin C-based eGFR may differ substantially from creatinine- based eGFR in patients with abnormal muscle mass or acutely changing renal function. Please interpret together with relevant clinical features. On 08/06/2020 the cystatin C assay method changed. Cystatin C eGFR results > 50 ml/min/1.73m2 are approximately 10% lower with the new assay. Cystatin C 1.13 0.67 - 1.21 mg/L 06/29/2024 9:40 AM CDT DTL Blood (Blood, Venous) 06/28/2024 12:09 PM CDT 06/29/2024 9:21 AM CDT us Aaliyah Alamo M.D. LAB BLOOD ADD-ON Final Res ult [facility] [address] [place] [address], [facility] DTL [facility] [address] [place] [address] * (ABNORMAL) Basic Metabolic Panel (05/01/2023 6:44 AM [employer]ILD [employer]) Pathologist [facility] Potassium, S 4.8 3.6 - 5.2 mmol/L 05/01/2023 9:14 AM [employer]ILD [employer] DTL Sodium, S 134(L) 135 - 145 mmol/L 05/01/2023 9:14 AM [employer] DTL Chloride, S 101 98 - 107 mmol/L 05/01/2023 9:14 AM [employer] DTL Bicarbonate, S 26 22 - 29 mmol/L 05/01/2023 9:14 AM [employer] DTL Anion Gap 7 7 - 15 05/01/2023 9:14 AM [employer] DTL BUN (Blood Urea Nitrogen), S 15 8 - 24 mg/dL 05/01/2023 9:14 AM [employer] DTL Creatinine 0.53(L) 0.74 - 1.35 mg/dL 05/01/2023 9:14 AM [employer] DTL Estimated GFR (eGFR) >90 >=60 mL/min/BSA 05/01/2023 9:14 AM [employer] DTL Comment: Estimated GFR calculated using the 2020 CKD_EPI creatinine equation. Calcium, Total, S 9.0 8.6 - 10.0 mg/dL 05/01/2023 9:14 AM [employer] DTL Glucose, S 83 70 - 140 mg/dL 05/01/2023 9:14 AM [employer] DTL Blood (Blood, Venous) 05/01/2023 6:44 AM [employer] 05/01/2023 8:54 AM [employer] Fox Johnson M.D. LAB BLOOD ADD-ON Final Result [facility] [address] [place] [address], [place] DTL [facility] [address] [place] [address] from Last 3 Months or Most Recently Relevant to Health Maintenance Insurance [place] MED[place] MEDICARE [facility] Advance Directives For more information, please contact: [phone] * Full Code (Latest Code Status on File) Date Activated Date Inactivated Comments 04/27/2023 5:33 PM 05/01/2023 8:20 PM Question Answer Comments Full Code: Discussed Care Teams Hide Curer Relationship Specialty Start Date End Date Elsewhere, Pcp PCP - General Family Medicine 04/27/23
--- OUTSIDE RECORDS SUMMARY | 2024-09-27 08:53 | XMS_ITS | Encounter Summary ---
Author Organization [facility] Address [address] [place] [address] Care Team Providers Care Supervisor Lamp Shades Name Role Phone Elsewhere, Pcp Primary Care Provider Unavailabl e Encounter Details Date Type Department Care Team (Late st Contact Info) Description 08/23/2024 Orders Only Department of Physical Medicine and Rehabilitation in [place], [place] [address] [place] [phone] Adalberto Francois M.D. 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 I have a [facility] place to live 05/06/2024 Education Answer Date Recorded What is the highest level of school you have completed or the highest degree you have received? 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
--- OUTSIDE RECORDS SUMMARY | 2024-09-27 08:53 | XMS_ITS ---
Author Organization [facility] Care Team Providers Care Oakes Machine Operator Name Role Phone Ayana Sheikh Unavailable Unavailable Sherlyn Jacob Unavailable Unavailable Sundar Torrez Unavailable Unavailable Dolly Arreaga Unavailable Unavailable Tru Her Unavailable Unavailable Allergies and adverse reactions No Known Allergies Care Team Name Role Address Phone Organization Dates Ayana Sheikh PCP [facility] [address] [place] [address], [facility], [place] (Office): [facility] 07/31/2012 - 11/09/2012 Sherlyn Jacob [address], [place], [address], [place] (Office): [facility] 07/31/2012 - 11/09/2012 Sundar Torrez [facility] [address] [place] [address], [address], [place] (Office): [facility] 07/31/2012 - 11/09/2012 Dolly Arreaga [facility] [place], [address], [place]Office): [facility] 07/31/2012 - 11/09/2012 Tru Her [address], [place], [address], [place] (Office): [facility] 07/31/2012 - 11/09/2012 Goals Section Goals Description Status Target Date Ability to plan and go on a trip into the community using accessible public transportation. Active 12/10/2012 Adequate hydration, 8-10 glasses of fluid daily Active 12/10/2012 Client will be independent in self-catheterizati on by discharge. Active 12/10/2012 Client will be independent i n upper body dressing and grooming by discharge Active 12/10/2012 Client will have no falls through discharge Acti ve 12/10/2012 Client will safely propel el ectric w/c to destinations by discharge Active 12/10/2012 Client will show improvement to maximum potential with mobility and daily cares by next review. Active 12/10/2012 Demonstrate progressive healing of tissue. Activ e 12/10/2012 Develop skills necessary to participate in 5 leisure pursuits independently or with minimal assistance. Active 12/10/2012 Eat single portions at meals Active Identify dicharge needs and develop a discharge plan Active 12/10/2012 Maintain or increase bed mob ility and transfers to minimal assist of 1 by next review. Active 12/10/2012 Maintain weight 181.5# +/- 3# Active Participant will demonstrate a knoweldge of risk factors and interventions for preventing skin breakdown. Active 3 Participant will direct needs to prevent skin br eakdown. Active 12/10/2012 Participate in 2 community trips each month. Act corina 12/10/2012 Participate in leisure opportunities during unst ructured time. Active 12/10/2012 Participate in prescribed treatment plan to prom ote wound healing. Active 12/10/2012 Verbalizes reasonable comfort. Active 0 12/10/2012 Will remain continent of bowel and bladder daily by next review. Active 12/10/2012 Immunizations Immunization Status Vaccine Details Vaccine Code CodeSystem Milton e Notes Influenza cancelled Influenza, high-dose, split virus, quadrivalent, injectable, preservative free 197 CVX created date: 09/18/2012 consent date: 09/18/2012 Mental Status Section Date Assessment Total Score Description 11/09/2012 BIMS 15 cognitively int act PHQ-9 00 11/06/2012 BIMS 15 cognitively int act PHQ-9 00 Reason for Referral No Reasons for Referral Entered Social History Social History Observation Description Start Date End Date Code Code System Current Smoking Status Tobacco smoking consumption unknown 210760361 SNOMED CT Sex Assigned At Male 1965 [address]329-4 [facility] Gender Identity Vital Signs Code Code System Vitals Name Values and Units Timing Information 9279-1 [facility] Respiratory Rate Value=20.0 Units=/m in 10/30/2012 8462-4 [facility] Blood Pressure-Diastolic Value=56 Un its=mmHg 10/30/2012 8480-6 [facility] Blood Pressure-Systolic Xxdgl=884 Un its=mmHg 10/30/2012 8310-5 [facility] Body Temperature Value=98.1 Units= F 10/30/2012 8867-4 [facility] Heart rate Value=84.0 Units=/min 73314-6 [facility] O2 % BldC Oximetry Value=98.0 Units= % 10/30/2012 86990-6 [facility] Weight Qxhja=272.2 Units=Lbs 11/2012 8302-2 [facility] Height Value=71.0 Units=Inches 08/07/2012
--- OUTSIDE RECORDS SUMMARY | 2024-09-27 08:53 | XMS_ITS | Encounter Summary ---
Author Organization [facility] Address [address] [place] [address] Care Team Providers Care Assistant Laboratory Director Name Role Phone Elsewhere, Pcp Primary Care Provider Unavailabl e Reason for Visit * Reason Onset Date Comments Error 08/27/2024 Encounter Details Date Type Department Care Team (Latest Contact Info) Description 08/27/2024 Clinical Communication Department of Physical Medicine and Rehabilitation in [place], [place] [address] [place] [phone] Adalberto Francois M.D. [address] [place] [address] Error Social History Tobacco Use Types Packs/Day Years Used Date Smoking Tobacco: Never Smokeless Tobacco: Never Alcohol Use Standard Drinks/Week Comments Yes 2 (1 standard drink = 0.6 oz pur e alcohol) socially [facility] Utilities Answer Date Recorded In the past 12 months has [facility] [employer] gas, oil, or water [employer] threatened to shut off services in your [...] your living situation today? I have a [facility] place to live 05/06/2024 Education Answer Date Recorded What is the highest level of school you have completed or the highest degree you have received? Doctorate 08/22/2018 Sex and Gender Information Value Date Recorded Sex Assigned at Male 03/24/2017 7:48 PM SINTER MACHINE OPERATOR Legal Sex Male 6:02 PM SINTER MACHINE OPERATOR Gender Identity Male 03/24/2017 7:48 PM SINTER MACHINE OPERATOR Sexual Orientation Straight 03/24/2017 7: 48 PM SINTER MACHINE OPERATOR documented as of this encounter Plan of Treatment Not on file documented as of this encounter Visit Diagnoses Not on filedocumented in this encounter Care Teams Assistant Laboratory Director Relationship Specialty Start Date End Date Elsewhere, Pcp PCP - General Family Medicine 04/27/23 documented as of this encounter
--- OUTSIDE RECORDS SUMMARY | 2024-09-27 08:54 | XMS_ITS | Clinical Summary ---
Author Organization [employer] [facility] [facility] Address [address] [place] [address] Care Team Providers Care Bungy Jump Master Name Role Phone Neville Olivera DO Primary Care Provider [phone] Allergies No known active allergies Medications medication [...] for back wheel 1 Each 3 Active Xarelto 10 mg tabletIndicatio ns:Deep vein thrombosis (DVT) of proximal vein of left lower extremity, unspecified chronicity (HC) Take 1 Tablet (10 mg) by mouth once daily with evening meal. 90 Tablet 3 4 Active medication order composerIndicat ions:Skin sore HYDROFERA BLUE 2 X 2 BANDAGE 20 Each 5 Active silicone,dressi ng-foam bandage 7 X 7 bndgIndications :Skin sore Apply topically to affected area(s). Sacrum Silicone Foam Dressing 20 Each 5 Active Foam Bandage (Tendra Mepilex Border) 3 X 3 bndgIndications :Multiple wounds of skin Apply topically to affected area(s). For right heel wound Change on -W-F 10 Each 5 4 025 Discontinu ed(*Med complete/R egimen complete/L evel of care change) silicone,dressi ng-foam bandage 7 X 7 bndgIndications :Skin sore Apply topically to affected area(s). Sacrum Silicone Foam Dressing 20 Each 5 025 Discontinu ed(Reorder (E-cancel not sent)) medication order composerIndicat ions:Skin sore HYDROFERA BLUE 2 X 2 BANDAGE 20 Each 5 025 Discontinu ed(Reorder (E-cancel not sent)) nitrofurantoin macrocrystals/m onohydrate (MACROBID) 100 mg capsuleIndicati ons:Complicated UTI (urinary tract infection) Take 1 Capsule (100 mg) by mouth two times daily for 5 days. 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 2012 Incomplete quadriplegia [...] Encounters Date Type Department Care Team Description 09/20/2024 10:40 AM CDT Office Visit [facility] [address] [place] [address] Luana Cedeno PA UTI 09/20/2024 Travel 08/26/2024 Telephone [facility] [address] [facility] [place] [id number] Neville Olivera, DO Questions 08/13/2024 7:00 AM CDT Orders Only [facility] [address] [facility] [address] [place] Lab 08/13/2024 Orders Only [facility] [address] [facility] [address] Neville Olivera, DO <No scans attached> 08/13/2024 Travel 06/28/2024 11:40 AM CDT Nurse/Clinic Staff Only [facility] [address] [facility] [address] Lab (UA ordered by Dr. Olivera ) 06/28/2024 Orders Only [facility] [address] [facility] [address] Neville Olivera, DO <No scans attached> 06/28/2024 Travel from Last 3 Months Immunizations Immunization Administration Dates Next Due COVID-19 vaccine ([employer]) KIMANI TOMPKINS Tdap 07/25/2013 Family History Medical History Relation Name Comments Good Health Father Zachary Cancino Asthma Mother Claudia cancino Relation Name Status Comments Father Zachary Cancino Alive Mother Claudia cancino Social History Tobacco Use Types Packs/Day Years Used Date Smoking Tobacco: Never Smokeless Tobacco: Never Tobacco Cessation:Counseling Given: Yes Alcohol Use Standard Drinks/Week Comments Yes 0 (1 standard drink = 0.6 oz pure alcohol) occasional - few glasses wine per month PHQ-2 Answer Date Recorded PHQ-2 TOTAL SCORE 0 11/15/2022 Social Connections Answer Date Recorded Do you often feel lonely or isolated from those around you? 0 09/20/2024 Financial Resource Strain Answer Date R ecorded Difficulty of Paying Living Expenses 3 09/20/2024 Difficulty of Paying Living Expenses Not on file 09/20/2024 Food Insecurity Answer Date Recorded Do you worry your food will run out before you are able to buy more? 1 09/20/2024 Transportation Needs Answer Date Record ed Does lack of transportation keep you from medica l appointments? 1 09/20/2024 Does lack of transportation keep you from work, meetings or getting things that you need? 1 09/20/2024 Housing Stability Answer Date Recorded What is your housing situation today? 1 09/20/2024 Interpersonal Safety Answer Date Record ed Are you being hit, kicked, p ushed or yelled at (see row info)? No 04/26/2023 Interpersonal Safety Abuse 12 - 18 Not on file 04/26/2023 Interpersonal Safety Ambulatory Vulnerability No t on file 04/26/2023 Utilities Answer Date Recorded Do you have trouble paying f or utilities (for example, heat, electricity, water, phone)? 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 Gender Identity Not on file Sexual Orientation Not on file Obstetrics History Last Filed Vital Signs Vital Sign Reading Time Taken Comments Blood Pressure 111/74 09/20/2024 10:34 AM CDT Pulse 70 09/20/2024 10:34 AM CDT Temperature 37.4 C (99.4 F) 10/24/2023 9:49 AM CDT Respiratory Rate 16 04/26/2023 9:48 PM MANA[employer] DISH Oxygen Saturation 94% 09/20/2024 10:34 AM CDT Inhaled Oxygen Concentration - - Weight 84.4 kg (186 lb) 04/26/2023 5:25 PM MANAGER DISH Height 180.3 cm (5' 11) 04/26/2023 5:25 PM MANAGER DISH Body Mass Index 25.94 04/26/2023 5:25 PM MANAGER DISH Plan of Treatment Upcoming Encounters Date Type Department Care Team (Late st Contact Info) Description 10/15/2024 2:00 PM CDT Office Visit [facility] [address] [address] [place] [address] Ailin Dias MD [address] [place] [address] Health Maintenance Due Date Last Done Comments HIV for age 15-65 06/03/1979 Hepatitis C screening for age 18-79 1982 Pneumococcal series for age 50+ (1 of 1 - PCV) 2014 Zoster (shingles) series for age 50+ (1 of 2) 2014 Tetanus booster 07/26/2023 07/25/2013 COVID-19 vaccine series (3 season) 2023 02/08/2021, 07/12/2020 Depression screening for age 12+ 11/16/2023 11/15/2022, 11/04/2022, 03/04/2021, Additional history exists RSV vaccine for adults or (1 - Risk 60-74 years 1-dose series) 2024 Influenza Vaccine (#1) 2024 Fecal testing sDNA-FIT (Cologuard) for age 45-75 01/02/2026 01/02/2023, 05/12/2019, 05/12/2019, Additional history exists Lipids for age 45-75 11/05/2027 11/04/2022, 09/04/2019, 07/27/2015, Additional history exists Hepatitis B series for 19+ Aged Out N o longer eligible based on patient's age to complete this topic Procedures Procedure Name Priority Date/Time Associated Diagnosis Comments URINE CULTURE Routine 09/20/2024 10:35 AM CDT Lower urinary tract symptoms (LUTS) URINALYSIS MICROSCOPIC Routine 09/20/2024 10:35 AM CDT Lower urinary tract symptoms (LUTS) URINALYSIS MACROSCOPIC - [facility] ONLY POC DIP ([facility]) Routine 09/20/2024 10:35 AM CDT Lower urinary tract symptoms (LUTS) URINALYSIS MACROSCOPIC - [facility] ONLY POC DIP ([facility]) Routine 08/13/2024 8:58 AM CDT Neurogenic bladder UTI symptoms URINE CULTURE Routine 08/13/2024 8:57 AM CDT Neurogenic bladder UTI symptoms URINALYSIS MICROSCOPIC Routine 08/13/2024 8:57 AM CDT Neurogenic bladder UTI symptoms URINALYSIS MACROSCOPIC - [facility] ONLY POC DIP ([facility]) Routine 06/28/2024 11:44 AM CDT Neurogenic bladder UTI symptoms URINALYSIS MICROSCOPIC Routine 06/28/2024 11:43 AM CDT Neurogenic bladder UTI symptoms URINE CULTURE Routine 06/28/2024 11:43 AM CDT Neurogenic bladder UTI symptoms SDNA-FIT EXTERNAL (COLOGUARD) Routine 01/02/2023 11:00 PM CDT Screening for colorectal cancer LIPID PANEL W REFLEX MEASURED LDL Routine 11/04/2022 9:36 AM CDT Lipid screening from Last 3 Months or Most Recently Relevant to Health Maintenance Results * (ABNORMAL) POCT Urinalysis Dipstick Only [[id number]] (09/20/2024 10:35 AM CDT) Only the most recent of3 resultswithin the time period is included. PH 6.5 5.0 - 8.0 [facility] SPECIFIC GRAVITY 1.015 1.001 - 1.035 [facility] GLUCOSE NEGATIVE NEGATIVE [facility] BILIRUBIN NEGATIVE NEGATIVE [facility] KETONES NEGATIVE NEGATIVE [facility] OCCULT BLOOD 3+(A) NEGATIVE [facility] PROTEIN 1+(A) NEGATIVE [facility] NITRITE POSITIVE(A) NEGATIVE [facility] LEUKOCYTE ESTERASE TRACE(A) NEGATIVE [facility] Urine URINE SPECIMEN / Unknown 09/20/2024 10:35 AM CDT 09/20/2024 10:49 AM CDT Luana GOFF URINE Final Result [facility] [address] [place] [address], [facility] [address] [place] [address] * (ABNORMAL) URINALYSIS MICROSCOPIC [[id number]] - routine (09/20/2024 10:35 AM CDT) Only the most recent of3 resultswithin the time period is included. RBC 11-25(A) 0-2, None Seen /HPF 09/20/2024 3:51 PM CDT [facility] WBC 26-50(A) 0-2, 3-5, None Seen /HPF 09/20/2024 3:51 PM CDT [facility] BACTERIA Many(A) None Seen, Rare, Few Bacteria/ HPF 09/20/2024 3:51 PM CDT [facility] EPITHELIAL CELLS None Seen None Seen, Few Epi/HPF 09/20/2024 3:51 PM CDT [facility] HYALINE CASTS 0-2 0-2, 3-5 /LPF 09/20/2024 3:51 PM CDT [facility] Urine URINE SPECIMEN / Unknown Non-Blood / Unknown 09/20/2024 10:35 AM CDT 09/20/2024 10:48 AM CDT Luana GOFF URINE Final Result [facility] [address] [place] [address], * (ABNORMAL) URINE CULTURE [[id number]] (09/20/2024 10:35 AM CDT) Only the most recent of3 resultswithin the time period is included. CULTURE RESULT(A) 09/22/2024 1:00 PM CDT [facility] CULTURE >100,000 CFU/mL Escherichia coli 09/22/2024 1:00 PM CDT [facility] Comment:ESBL-positive (Exten ded-spectrum beta-lactamase); multidrug-resistant organism. Urine URINE SPECIMEN / Unknown Non-Blood / Unknown 09/20/2024 10:35 AM CDT 09/20/2024 10:48 AM CDT Narrative Organism Antibiotic Method Susceptibility Escherichia coli TRIMETHOPRIM/SULF <=03/31: S Escherichia coli AMPICILLIN >=32: R Escherichia [...] coli PIPERACILLIN/TAZO <=4: S Escherichia coli AMPICILLIN/SULBACTAM 4: S Escherichia coli CEFEPIME R Escherichia coli MEROPENEM <=0.25: S Escherichia coli NITROFURANTOIN <=16: S Luana GOFF MICROBIOLOGY Final Result [facility] [address] [place] [address], * SDNA-FIT EXTERNAL (COLOGUARD) [[id number]] (01/02/2023 11:00 PM CDT) NONINV COLON CA DNA+OCC BLD SCRN STL-IMP Negative Negative 01/11/2023 1:11 AM CDT [facility] (CLIA #:[id number]) Comment: NEGATIVE TEST RESULT. A negative Cologuard [...] screened with both Cologuard and colonoscopy. (Qing Purvis al, N Engl J Med 2014;370(14):1331-1156) The normal value (reference range) for this assay is negative. COLOGUARD RE-SCREENING RECOMMENDATION: Periodic colorectal cancer screening is an important part of preventive healthcare for asymptomatic individuals at average risk for colorectal cancer. Following a negative Cologuard result, the [place] [employer] and U.S. Multi-Society Task Force screening guidelines recommend a Cologuard re-screening interval of 3 years. References: [place] [employer] Guideline for Colorectal Cancer Screening: https://www.cancer.org/cancer/yiuis-levqvo-kpcnin/ctxbywrob-dgjuhjntf-jerphix/ac s-rec ommendations.html.; Jim JOHNSON, Penny ALAN, Theo LujanK, Colorectal Cancer Screening: Recommendations for Physicians and Patients from the U.S. Multi-Society Task Force on Colorectal Cancer Screening , Am J Gastroenterology 2017; 112:3616-0096. TEST DESCRIPTION: Composite algorithmic analysis of stool [...] screened with both Cologuard and colonoscopy. (Qing Love, N Engl J Med 2014;370(14):0379-7276.) Cologuard may produce a false negative or false positive result (no colorectal cancer or precancerous polyp present at colonoscopy follow up). A negative Cologuard test result does not guarantee the absence of CRC or advanced adenoma (pre-cancer). The current Cologuard screening interval is every 3 years. ([place] [employer] and U.S. Multi-Society Task Force). Cologuard performance data in a 10,000 patient pivotal study using colonoscopy as the reference method can be accessed at the following location: www.[employer]/results. Additional description of the Cologuard test process, warnings and precautions can be found at www.[employer].com. Stool specimen (specimen) (Rectum) 01/02/2023 11:00 PM CDT 01/04/2023 8:11 PM CDT us Valerie Cortez MD URINE Final Result [facility] (CLIA #:[id number]) [place] [address], * (ABNORMAL) LIPID PANEL W REFLEX MEASURED LDL (11/04/2022 9:36 AM CDT) CHOLESTEROL,TOTAL 165 100 - 199 mg/dL 11/04/2022 6:37 PM CDT [facility] Comment: Cholesterol, Total Reference Ranges Desirable <200 mg/dL Borderline 200-239 mg/dL High >=240 mg/dL TRIGLYCERIDES 121 <150 mg/dL 11/04/2022 6:37 PM CDT [facility] HDL CHOLESTEROL 35(L) >40 mg/dL 6:37 PM CDT [facility] NON-HDL CHOLESTEROL 130 <145 mg/dl 11/04/2022 6:37 PM CDT [facility] CHOL/HDL RATIO 4.71(H) <4.50 11/04/2022 6:37 PM CDT [facility] LDL CHOLESTEROL 106 <=130 mg/dL 11/04/2022 6:37 PM CDT [facility] VLDL CHOLESTEROL 24 <=30 mg/dL 11/04/2022 6:37 PM CDT [facility] PROVIDER ORDERED STATUS RANDOM 11/04/2022 6:37 PM CDT [facility] Blood BLOOD SPECIMEN / Unknown Venipuncture / Unknown 11/04/2022 9:36 AM CDT 11/04/2022 9:40 AM CDT us Neville Olivera DO CHEMISTRY Final Result [facility] [address] [place] [address], [place] from Last 3 Months or Most Recently Relevant to Health Maintenance Additional Health Concerns Infection Onset Date Last Indicated ESBL 10/12/2021 09/20/2024 Insurance MEDICAID MEDICARE PART B HB ONLY MEDICARE PART A HB ONLY [employer] [place] BLUE MR PB ONLY Advance Directives * Full Code (Latest Code Status on File) Date Activated Date Inactivated Comments 10/10/2018 10:18 AM 10/10/2018 8:47 PM * Full Code Date Activated Date Inactivated Comments 07/12/2012 3:55 PM 07/31/2012 1:28 PM Care Teams Bungy Jump Master Relationship Specialty Start Date End Date Neville Oliver[place] [address] PCP - General Family Practice 11/04/22
[2024-09-27 08:55] VITALS: BP 139/85; PULSE 74; RESP 18; O2SAT 96
--- NOTE | 2024-09-27 09:54 | ED.GENADULT ---
HPI - General Adult General Chief complaint: Skin/Abscess/Foreign Body Stated complaint: Possible infection lower back Time Seen by Provider: 09/27/24 09:05 History of Present Illness HPI narrative: Patient is a 59-year-old gentleman who is a paraplegic. He had a cervical spine injury. He is prone to a buttocks ulcerations and is a chronic patient of the wound clinic. He presents today with maceration of his buttocks superior to his anus over excoriated skin. He has no deep ulcerations but has general irritation. No fevers no chills no night sweats no cough no shortness of breath no abdominal pain no nausea no vomiting. No symptoms of pain due to his paraplegia. Related Data Home Medications ?Medication ?Instructions ?Recorded ?Confirmed methenamine hippurate 1 gram tablet 1 g PO BID 10/17/23 09/27/24 rivaroxaban 10 mg tablet (Xarelto) 10 mg PO DAILY 10/17/23 09/27/24 Allergies Allergy/AdvReac Type Severity Reaction Status Date / Time No Known Drug Allergies Allergy Verified 09/27/24 09:03 Review of Systems Status of ROS: Reports: 10 or more systems reviewed and unremarkable except as noted in History and below PFSH PFS Social History Smoking Status: Never smoker How often do you have a drink containing alcohol: never AUDIT-C Alcohol total score: 0 Non-prescribed substance use: denies use Exam Narrative: Exam Narrative: EXAM GENERAL: Patient appears comfortable with paraplegia noted. EYES: No scleral icterus. LYMPH: No supraclavicular or cervical lymphadenopathy. SKIN: Excoriations with superficial ulcerations noted on the superior buttocks. EXT: No dependent lower extremity pedal edema. HEART: Regular rate and rhythm with no murmurs, rubs, or gallops. LUNGS: Clear to auscultation bilaterally with no crackles or wheezes. ABD: Soft, non tender, non distended. PSYCH: Good eye contact, speech is not pressured. Const: Vital Signs, click to edit/add: Vital Signs - 24 hr 09/27/24 08:55 Pulse Rate [Right Pulse Oximeter] 74 Respiratory Rate 18 Blood Pressure [Le ft Upper Arm] 139/85 Pulse Oximetry 96 Oxygen Delivery Me thod Room Air Course Course ED Course: Patient seen and examined. With patient's consent I did photograph the affected area and taken to wound care clinic. The patient has an appointment next week and the provider in clinic did send a Mepilex dressings to be placed on today and again on Monday with follow-up in the clinic on of next week. Otherwise routine care. No other workup indicated. Vital Signs Vital signs: Initial Vital Signs Pulse Rate 74 09/27/24 08:55 Pulse Rhythm Regular 09/27/24 08:55 Pulse Strength 3+ Normal 09/27/24 08:55 Respiratory Rate 18 09/27/24 08:55 Blood Pressure 139/85 09/27/24 08:55 Blood Pressure Mean 103 09/27/24 08:55 Blood Pressure Position Sitting 09/27/24 08:55 Pulse Oximetry 96 09/27/24 08:55 Oxygen Delivery Method Room Air 09/27/24 08:55 Vital Signs Pulse Rate 74 09/27/24 08:55 Respiratory Rate 18 09/27/24 08:55 Blood Pressure 139/85 09/27/24 08:55 Pulse Oximetry 96 09/27/24 08:55 Oxygen Delivery Method Room Air 09/27/24 08:55 Pulse Rate 74 09/27/24 08:55 Respiratory Rate 18 09/27/24 08:55 Blood Pressure 139/85 09/27/24 08:55 Pulse Oximetry 96 09/27/24 08:55 Oxygen Delivery Method Room Air 09/27/24 08:55 Discharge Plan Discharge Clinical Impression: Abscess of skin or subcutaneous tissue Patient Disposition: Home, Self-Care Condition: Stable Additional Instructions: Dressing placed on today. Change dressing on Monday. Follow-up in wound clinic on . Otherwise continue current care. Activity Level: No Restrictions Discharge Diet: Regular Prescriptions: No Action Xarelto 10 mg tablet 10 mg PO DAILY methenamine hippurate 1 gram tablet 1 g PO BID Follow Up/Referrals: JOELLEN FIORE DO [Primary Care Provider, Family Practice] Stand Alone Forms: MyHealth Info Instructions
--- OUTSIDE RECORDS SUMMARY | 2024-09-27 09:57 | XMS_ITS ---
Author Organization [facility] Care Team Providers Care Airline Lounge Receptionist Name Role Phone Ayana Sheikh Unavailable Unavailable Sherlyn Jacob Unavailable Unavailable Sundar Torrez Unavailable Unavailable Dolly Arreaga Unavailable Unavailable Tru Her Unavailable Unavailable Allergies and adverse reactions No Known Allergies Care Team Name Role Address Phone Organization Dates Ayana Sheikh PCP [facility] [address] [place] [address], [facility], [place] (Office): [facility] 07/31/2012 - 11/09/2012 Sherlyn Jacob [address], [place], [address], [place] (Office): [facility] 07/31/2012 - 11/09/2012 Sundar Torrez [facility] [address] [place] [address], [address], [place] (Office): [facility] 07/31/2012 - 11/09/2012 Dolly Arreaga [facility] [place], [address], [place] (Office): [facility] 07/31/2012 - 11/09/2012 Tru Her [address], [place], [address], [place] (Office): [facility] 07/31/2012 - 11/09/2012 Goals Section Goals [...] Current Smoking Status Tobacco smoking consumption unknown [id number] SNOMED CT Sex Assigned At Male 1965 24507-2 [facility] Gender Identity Vital Signs Code Code System Vitals Name Values and Units Timing Information 9279-1 [facility] Respiratory Rate Value=20.0 Units=/m in 10/30/2012 8462-4 [facility] Blood Pressure-Diastolic Value=56 Un its=mmHg 10/30/2012 8480-6 [facility] Blood Pressure-Systolic Vssrs=737 Un its=mmHg 10/30/2012 8310-5 [facility] Body Temperature Value=98.1 Units= F 10/30/2012 8867-4 [facility] Heart rate Value=84.0 Units=/min 60512-7 [facility] O2 % BldC Oximetry Value=98.0 Units= % 10/30/2012 81769-5 [facility] Weight Vfdzk=476.2 Units=Lbs 11/2012 8302-2 [facility] Height Value=71.0 Units=Inches 08/07/2012
== END 2024-09-27 10:20 | disposition home or self-care (01) ==
PROVIDERS: Emergency Provider Internal Medicine; PCP Student in an Organized Health Care Education/Training Program
DX: L02.31 Cutaneous abscess of buttock (principal)
CPT/HCPCS: 99283

== ENCOUNTER 2024-10-02 13:54 | Outpatient (CLI) | payer MEDICARE, BC, MEDICAID, SELFPAY | END 2024-10-02 13:55 | disposition home or self-care (01) | LOC: WOUND 13:54 | PROVIDERS: PCP Student in an Organized Health Care Education/Training Program; Visit Provider Surgery | DX: L89.153 Pressure ulcer of sacral region, stage 3 (principal); G82.53 Quadriplegia, C5-C7 complete; Z99.3 Dependence on wheelchair | CPT/HCPCS: 97597; G0463 ==

== ENCOUNTER 2024-10-17 10:46 | Outpatient (CLI) | payer MEDICARE, BC, MEDICAID, SELFPAY | END 2024-10-17 10:47 | disposition home or self-care (01) | LOC: WOUND 10:46 | PROVIDERS: PCP Student in an Organized Health Care Education/Training Program; Visit Provider Surgery | DX: L89.153 Pressure ulcer of sacral region, stage 3 (principal); G82.53 Quadriplegia, C5-C7 complete; Z99.3 Dependence on wheelchair | CPT/HCPCS: 97597 ==

== ENCOUNTER 2024-11-12 15:29 | Outpatient (CLI) | payer MEDICARE, BC, MEDICAID, SELFPAY | END 2024-11-12 15:30 | disposition home or self-care (01) | LOC: WOUND 15:30 | PROVIDERS: PCP Student in an Organized Health Care Education/Training Program; Visit Provider Nurse Practitioner Family | DX: L89.153 Pressure ulcer of sacral region, stage 3 (principal); G82.53 Quadriplegia, C5-C7 complete; Z99.3 Dependence on wheelchair | CPT/HCPCS: 97597 ==

== ENCOUNTER 2024-11-27 14:45 | Outpatient (CLI) | payer MEDICARE, BC, MEDICAID, SELFPAY | END 2024-11-27 14:46 | disposition home or self-care (01) | LOC: WOUND 14:45 | PROVIDERS: PCP Student in an Organized Health Care Education/Training Program; Visit Provider Surgery | DX: L89.153 Pressure ulcer of sacral region, stage 3 (principal); G82.53 Quadriplegia, C5-C7 complete; Z99.3 Dependence on wheelchair | CPT/HCPCS: 11042 ==

== ENCOUNTER 2024-12-12 09:03 | Emergency (ER) | payer MEDICARE, BC, MEDICAID, SELFPAY ==
--- OUTSIDE RECORDS SUMMARY | 2024-11-28 15:00 | XMS_ITS | Encounter Summary ---
Author Organization [facility] Address [address] [place] [address] Care Team Providers Care Counter Professional Name Role Phone Elsewhere, Pcp Primary Care Provider Unavailabl e Reason for Referral * Outpatient (Routine) - Authorized Specialty Diagnoses / Procedures Referred By Contac t Referred To Contact Urology Serina Burgess APRN, C.N.P. [address] [place] [address] Phone: tel: fax: [facility] Region Referral ID Status Reason Start Date Expiration Date V isits Requested Visits Authorized [id number] Authorized 11/28/2024 05/30/2026 1 1 * Outpatient (Routine) - Authorized Specialty Diagnoses / Procedures Referred By Contac t Referred To Contact Diagnoses Urinary Tract Infection Site Not Specified Neurogenic Bladder Infection Urinary Tract Personal History Stone Bladder Procedures DX Abdomen 1 View Serina Burgess APRN, C.N.P. [address] [place] [address] Phone: tel: fax: [facility] Region Referral ID Status Reason Start Date Expiration Date V isits Requested Visits Authorized [id number] Authorized 11/28/2024 02/28/2026 1 1 * Outpatient (Routine) - Authorized Specialty Diagnoses / Procedures Referred By Bill stone Referred To Contact Diagnoses Urinary Tract Infection Site Not Specified Neurogenic Bladder Infection Urinary Tract Personal History Stone Bladder Procedures US Kidneys Bilateral with Bladder Serina Burgess APRN, C.N.P. [address] [address] Phone: tel: fax: [facility] Referral ID Status Reason Start Date Expiration Date V isits Requested Visits Authorized [id number] Authorized 11/28/2024 02/28/2026 1 1 Reason for Visit * Outpatient (Routine) - Closed Specialty Diagnoses / Procedures Referred By Bill stone Referred To Contact Urology Serina Burgess APRN, C.N.P. [address] [address] Phone: tel: fax: Serina Burgess APRN, C.N.P. [address] [address] Phone: tel: fax: Referral ID Status Reason Start Date Expiration Date Visits Re quested Visits Authorized [id number] Closed 10/15/2024 04/16/2026 1 1 Encounter Details Date Type Department Care Team (Late st Contact Info) Description 11/28/2024 3:00 PM CDT Telemedicine Department of Urology in [place], [place] [address] [address] Serina Burgess APRN, C.N.P. [address] [address] Infection Urinary Tract Personal History (Primary Dx); Urinary Tract Infection Site Not Specified; Neurogenic Bladder; Stone Bladder Social History Tobacco Use Types Packs/Day Years Used Date Smoking Tobacco: Never Smokeless Tobacco: Never Alcohol Use Standard Drinks/Week Comments Yes 2 (1 standard drink = 0.6 oz pur e alcohol) socially [facility] Utilities Answer Date Recorded In the [...] your living situation today? I have a [facility] place to live 05/06/2024 Education Answer Date Recorded What is the highest level of school you have completed or the highest degree you have received? 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 Legal Sex Male 6:02 PM OFFICE MACHINE INSPECTOR Gender Identity Male 03/24/2017 7:48 PM OFFICE MACHINE INSPECTOR Sexual Orientation Straight 03/24/2017 7: 48 PM OFFICE MACHINE INSPECTOR documented as of this encounter Plan of Treatment Scheduled Orders Name Type Priority Associated Diagnoses Orde r Schedule US Kidneys Bilateral with Bladder Imaging RAD - Routine (most inpatients and all outpatients) Urinary Tract Infection Site Not Specified Neurogenic Bladder Infection Urinary Tract Personal History Stone Bladder Expected: 11/28/2025, Expires: 02/27/2026 DX Abdomen 1 View Imaging RAD - Routine (most inpatients and all outpatients) Urinary Tract Infection Site Not Specified Neurogenic Bladder Infection Urinary Tract Personal History Stone Bladder Expected: 11/28/2025 (Approximate), Expires: 02/27/2026 Scheduled Referrals Name Type Priority Associated Diagnoses Orde r Schedule Urology office visit (clinic) Outpatient Referral Routine Expected: 11/28/2025, Expires: 02/27/2026 documented as of this encounter Visit Diagnoses Diagnosis Infection Urinary Tract Personal History- Primary Urinary Tract Infection Site Not Specified Neurogenic Bladder Stone Bladder documented in this encounter Care Teams Counter Professional Relationship Specialty Start Date End Date Elsewhere, Pcp PCP - General Family Medicine 04/27/23 documented as of this encounter
--- OUTSIDE RECORDS SUMMARY | 2024-12-12 09:05 | XMS_ITS | Encounter Summary ---
Author Organization [facility] Address [address] [place] [address] Care Team Providers Care Railroad Car Checker Name Role Phone Elsewhere, Pcp Primary Care Provider Unavailabl e Encounter Details Date Type Department Care Team (Late st Contact Info) Description 10/18/2024 Results Follow-Up Department of Urology in [place], [place] [address] [phone] Serina Burgess APRN, C.N.P. [address] [address] US Kidneys Bilateral with Bladder Social History Tobacco Use Types Packs/Day Years Used Date Smoking Tobacco: Never Smokeless Tobacco: Never Alcohol Use Standard Drinks/Week Comments Yes 2 (1 standard drink = 0.6 oz pur e alcohol) socially [facility] Utilities Answer Date Recorded In the past 12 months has [employer], gas, oil, or water [employer] threatened to shut off services in your [...] your living situation today? I have a [facility] place to live 05/06/2024 Education Answer Date Recorded What is the highest level of school you have completed or the highest degree you have received? Doctorate 08/22/2018 Sex and Gender Information Value Date Recorded Sex Assigned at Male 03/24/2017 7:48 PM TOP DYEING MACHINE TENDER Legal Sex Male 6:02 PM TOP DYEING MACHINE TENDER Gender Identity Male 03/24/2017 7:48 PM TOP DYEING MACHINE TENDER Sexual Orientation Straight 03/24/2017 7: 48 PM TOP DYEING MACHINE TENDER documented as of this encounter Plan of Treatment Not on file documented as of this encounter Visit Diagnoses Not on filedocumented in this encounter Care Teams Railroad Car Checker Relationship Specialty Start Date End Date Elsewhere, Pcp PCP - General Family Medicine 04/27/23 documented as of this encounter
--- OUTSIDE RECORDS SUMMARY | 2024-12-12 09:05 | XMS_ITS | Encounter Summary ---
Author Organization [facility] Address [address] [place] [address] Care Team Providers Care Souvenir Assembler Name Role Phone Elsewhere, Pcp Primary Care Provider Unavailabl e Reason for Visit * Reason Comments Med Refill Encounter Details Date Type Department Care Team (Late st Contact Info) Description 10/09/2024 Refill Department of Urology in [place], [place] [address] [phone] Kimberly Holley, [facility] [address] [address] Med Refill Social History Tobacco Use Types Packs/Day Years Used Date Smoking Tobacco: Never Smokeless Tobacco: Never Alcohol Use Standard Drinks/Week Comments Yes 2 (1 standard drink = 0.6 oz pur e alcohol) socially [facility] Utilities Answer Date Recorded In the past 12 months has e [employer], gas, oil, or water [employer] threatened to shut off services in your [...] your living situation today? I have a [facility] place to live 05/06/2024 Education Answer Date Recorded What is the highest level of school you have completed or the highest degree you have received? Doctorate 08/22/2018 Sex and Gender Information Value Date Recorded Sex Assigned at Male 03/24/2017 7:48 PM BUCKLE AND BUTTON MAKER Legal Sex Male 6:02 PM BUCKLE AND BUTTON MAKER Gender Identity Male 03/24/2017 7:48 PM BUCKLE AND BUTTON MAKER Sexual Orientation Straight 03/24/2017 7: 48 PM BUCKLE AND BUTTON MAKER documented as of this encounter Plan of Treatment Not on file documented as of this encounter Visit Diagnoses Diagnosis Neurogenic Bladder Urinary Tract Infection Site Not Specified documented in this encounter Care Teams Souvenir Assembler Relationship Specialty Start Date End Date Elsewhere, Pcp PCP - General Family Medicine 04/27/23 documented as of this encounter
--- OUTSIDE RECORDS SUMMARY | 2024-12-12 09:05 | XMS_ITS | Clinical Summary ---
Author Organization [facility] Address [address] [place] [address] Care Team Providers Care Community Outreach Specialist Name Role Phone Elsewhere, Pcp Primary Care Provider Unavailabl e Source Comments Patient records contain information from all sites at [facility]. For routine questions regarding patient records, call [phone] during business hours, M-F 8:00 AM - 5:00 PM Central Time. Record requests for emergency care only can be directed to [phone] at any time.[facility] Allergies No known active allergies Medications cholecalcifero l (VITAMIN D3) 2,000 Unit capsule Take 1 tablet by mouth. 7 Active DME Urological suppliesIndica tions:Urinary Tract Infection Site Not Specified,Neur ogenic Bladder DME Order 1 Unspecified 11 2 Active disposable gloves (Biobrane Gloves Large) misc Use as needed 2 each 11 3 Active Xarelto 10 mg tablet TAKE 1 TABLET(10 MG) BY MOUTH DAILY WITH DINNER 30 tablet 11 4 Active WHEELCHAIR MISC Wheelchair part-hinge for back wheel 3 Active methenamine (Hiprex) 1 gram tabletIndicati ons:Neurogenic Bladder,Urinar y Tract Infection Site Not Specified Take 1 tablet (1 g total) by mouth 2 (two) times a day. 180 tablet 3 5 Active Active Problems Problem Noted Date Diagnosed Date Pain Back 04/27/2023 Thrombosis Deep Vein Personal History 08/17/2022 Anticoagulant Therapy 08/17/2022 Urinary Tract Infection Site Not Specified 04/02 Pressure Ulcer Of Unspecified Site Stage 3 12/11 Overview (06/29/2021): Right buttock wound Assessment & Plan (08/25/2021 12:14 PM CDT): [facility] and [facility] to [facility]. Erich states the wound has been healing [...] is due to be seen in [facility] in August and he will request [...] matrix 4 cm x 4 cm, LOT [id number] Expiration 09/21/2023 was applied as a full [...] swollen left leg. He was seen in [facility]. A DVT was ruled out [...] placed on his left side. Jared medical health researcher monitored his position and kept him comfortable [...] matrix 4 cm x 4 cm lot [id number] expiration 09/21/2023 was applied in whole to the wound bed. This was secured with Mepitel 1 and Steri-Strips. This was covered then with Tegaderm to secure the dressing in place. Cover stretch tape was then applied to window pane the Tegaderm in place. He will return 1 week for ongoing wound care. His CONTENT ENGINEER will monitor the wound and the dressing. [...] matrix 3 cm x 4 cm lot :[id number] expiration 06/27/2023 was applied using sterile technique [...] Ruben green, tissue regeneration specialist from the [employer] to discuss advance wound care buttocks. A benefit verification form will be sent for application of PuraPly. Will return 1 week for ongoing wound care Assessment & Plan (02/25/2021 4:52 PM DENTAL TECHNICIAN): He last saw me in March 2018. He has a CONTENT ENGINEER that does twice a day wound care [...] covered with a mepilex foam Border. His CONTENT ENGINEER will apply Fibracol plus for a day [...] Jimenez Assessment & Plan (02/25/2021 4:55 PM DENTAL TECHNICIAN): Resolved Spasticity 02/27/2013 Quadriplegia Cervical Five Cervical Seven Incomp lete 01/11/2013 Neurogenic Bowel 07/12/2012 Encounters Date Type Department Care Team Description 11/28/2024 3:00 PM CDT Telemedicine Department of Urology in [place], [place] [address] [place] [phone] Serina Burgess APRN, C.N.P. Infection Urinary Tract Personal History (Primary Dx); Urinary Tract Infection Site Not Specified; Neurogenic Bladder; Stone Bladder 10/18/2024 3:35 PM CDT - 10/18/2024 11:59 PM CDT Hospital Encounter Department of Radiology in [place], [place] [address] [place] [phone] Serina Burgess APRN C.N.P. Dysreflexia Autonomic; Neurogenic Bladder; Urinary Tract Infection Site Not Specified Discharge Disposition: Home or Self Care 10/18/2024 3:18 PM CDT - 10/18/2024 3:34 PM CDT Hospital Encounter Department of Radiology in [address] [address] Serina Burgess APRN, C.N.P. Dysreflexia Autonomic; Neurogenic Bladder; Urinary Tract Infection Site Not Specified Discharge Disposition: Home or Self Care 10/18/2024 Results Follow-Up Department of Urology in [address] [phone] Serina Burgess APRN C.N.P. US Kidneys Bilateral with Bladder 10/15/2024 Refill Department of Vascular Medicine in [place], [place] [address] [place] [phone] Preeti Martínez, P.A.-C. Med Refill 10/15/2024 Refill Department of Vascular Medicine in [place], [place] [address] [place] [phone] Preeti Martínez P.A.-C. Med Refill 10/14/2024 Clinical Communication Department of Urology in [address] [phone] Serina Burgess APRN, C.N.P. After Visit Question 10/09/2024 Refill Department of Urology in [address] [phone] Kimberly Holley, SERINA, PFany.-C., P.A. Med Refill from Last 3 Months Immunizations Immunization Administration Dates Next Due Td (Adult), adsorbed 06/10/2004 Tdap 07/25/2013 Family History Medical History Relation [...] = 0.6 oz pur e alcohol) socially [facility] Utilities Answer Date Recorded In the [...] living situation today? I have a [facility] place to live 05/06/2024 Education Answer Date Recorded What is the highest level of school you have completed or the highest degree you have received? Doctorate 08/22/2018 Sex and Gender Information Value Date Recorded Sex Assigned at Male 03/24/2017 7:48 PM DENTAL TECHNICIAN Legal Sex Male 6:02 PM DENTAL TECHNICIAN Gender Identity Male 03/24/2017 7:48 PM DENTAL TECHNICIAN Sexual Orientation Straight 03/24/2017 7: 48 PM DENTAL TECHNICIAN Last Filed Vital Signs Vital Sign Reading Time Taken Comments Blood Pressure 93/58 07/09/2024 3:59 PM CDT Pulse 74 07/09/2024 3:59 PM CDT Temperature 36 C (96.8 F) 07/09/2024 3:59 PM CDT Respiratory Rate 16 05/01/2023 3:55 PM DENTAL TECHNICIAN Oxygen Saturation 99% 07/09/2024 3:59 PM CDT Inhaled Oxygen Concentration - - Weight 97.8 kg (215 lb 9.8 oz) 04/29/2023 1:36 P M DENTAL TECHNICIAN Height 180.3 cm (5' 10.98) 04/29/2023 1:[address] Body Mass Index 30.09 04/29/2023 1:36 PM DENTAL TECHNICIAN Plan of Treatment Health Maintenance Due Date Last Done Comments CT Colonography 1964 Colonoscopy 1965 FIT 1964 Hepatitis C Screening 1965 Pneumococcal vaccine (50+ years) (1 of 1 - PCV) 2014 Zoster Vaccines (1 of 2) 2014 DTaP,Tdap,and Td Vaccines (2 - Td or Tdap) 07/26/2023 07/25/2013, 06/10/2004 Depression Screening (Annual PHQ-2) 03/13/2024 COVID-19 Vaccine (3 - season) 2024 02/08/2021, 07/12/2020 Influenza Vaccine (#1) 2024 Cologuard 01/03/2026 01/03/2023 [...] Procedure Name Priority Date/Time Associated Diagnosis Comments US KIDNEYS BILATERAL WITH BLADDER RAD - Routine (most inpatients and all outpatients) 10/18/2024 4:08 PM CDT Dysreflexia Autonomic Neurogenic Bladder Urinary Tract Infection Site Not Specified DX ABDOMEN 1 VIEW RAD - Routine (most inpatients and all outpatients) 10/18/2024 3:36 PM CDT Dysreflexia Autonomic Neurogenic Bladder Urinary Tract Infection Site Not Specified BASIC METABOLIC PANEL, S/P Routine 05/01/2023 6:44 AM DENTAL TECHNICIAN from Last 3 Months or Most Recently Relevant to Health Maintenance Results * US Kidneys Bilateral with Bladder (10/18/2024 4:08 PM CDT) Anatomical Region Laterality Modality Abdomen, Renal, Ultrasound R ST LOS, Ultrasound ARZ LOS, Ultrasound FLA LOS Bilateral Ultrasound Impressions 10/18/2024 4:14 PM CDT No hydronephrosis. Narrative 10/18/2024 4:14 PM CDT EXAM: US KIDNEYS BILATERAL WITH BLADDER COMPARISON: 12/06/2022 ultrasound FINDINGS: Right kidney: 11.5 cm Cortical thickness: Normal. Parenchymal echogenicity: Normal. Collecting system: No hydronephrosis. Masses: None detected. Left kidney: 11.1 cm Cortical thickness: Normal. Parenchymal echogenicity: Normal. Collecting system: No hydronephrosis. Masses: None detected. Bladder: Unremarkable. Procedure Note Carlos Gee M.D. - 10/18/2024 EXAM: US KIDNEYS BILATERAL WITH BLADDER COMPARISON: 12/06/2022 ultrasound FINDINGS: Right kidney: 11.5 cm Cortical thickness: Normal. Parenchymal echogenicity: Normal. Collecting system: No hydronephrosis. Masses: None detected. Left kidney: 11.1 cm Cortical thickness: Normal. Parenchymal echogenicity: Normal. Collecting system: No hydronephrosis. Masses: None detected. Bladder: Unremarkable. IMPRESSION: No hydronephrosis. us Serina Burgess APRN, C.N.P. IMG US PROCEDURES Final Result * DX Abdomen 1 View (10/18/2024 3:36 PM CDT) Anatomical Region Laterality Modality Abdomen, Abdominal RST LOS, Abdominal ARZ LOS, Abdominal FLA LOS N/A Digital Radiography Impressions 10/18/2024 3:[address] 11/25/23. No stones project over bilateral kidneys, ureters, or bladder. 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 Narrative 10/18/2024 3:47 PM CDT EXAM: DX ABDOMEN 1 VIEW Procedure Note Darnell Simmons M.D. - 10/18/2024 EXAM: DX ABDOMEN 1 VIEW IMPRESSION: Comparison CT 11/25/23. No stones project over bilateral kidneys, ureters,or bladder. Unchanged chronic marked hypertrophic osseous deformities oflumbar spine, bilateral pelvic bones, and bilateral proximal femurs. Serina Burgess APRN, C.N.P. IMG DIAGNOSTIC IM AGING PROCEDURES Final Result * (ABNORMAL) Basic Metabolic Panel (05/01/2023 6:44 AM DENTAL TECHNICIAN) Potassium, S 4.8 3.6 - 5.2 mmol/L 05/01/2023 9:14 AM DENTAL TECHNICIAN DTL Sodium, S 134(L) 135 - 145 mmol/L 05/01/2023 9:14 AM DENTAL TECHNICIAN DTL Chloride, S 101 98 - 107 mmol/L 05/01/2023 9:14 AM DENTAL TECHNICIAN DTL Bicarbonate, S 26 22 - 29 mmol/L 05/01/2023 9:14 AM DENTAL TECHNICIAN DTL Anion Gap 7 7 - 15 05/01/2023 9:14 AM DENTAL TECHNICIAN DTL BUN (Blood Urea Nitrogen), S 15 8 - 24 mg/dL 05/01/2023 9:14 AM DENTAL TECHNICIAN DTL Creatinine 0.53(L) 0.74 - 1.35 mg/dL 05/01/2023 9:14 AM DENTAL TECHNICIAN DTL Estimated GFR (eGFR) >90 >=60 mL/min/BSA 05/01/2023 9:14 AM DENTAL TECHNICIAN DTL Comment: Estimated GFR calculated using the 2021 CKD_EPI creatinine equation. Calcium, Total, S 9.0 8.6 - 10.0 mg/dL 05/01/2023 9:14 AM DENTAL TECHNICIAN DTL Glucose, S 83 70 - 140 mg/dL 05/01/2023 9:14 AM DENTAL TECHNICIAN DTL Blood (Blood, Venous) 05/01/2023 6:44 AM DENTAL TECHNICIAN 05/01/2023 8:54 AM DENTAL TECHNICIAN Fox Johnson M.D. LAB BLOOD ADD-ON Final Result [facility] [address] [place] [address], [place] DTL [facility] [address] [place] [address] from Last 3 Months or Most Recently Relevant to Health Maintenance Insurance [place] [employer] MEDICARE [facility] Advance Directives For more information, please contact: [phone] * Full Code (Latest Code Status on File) Date Activated Date Inactivated Comments 04/27/2023 5:33 PM 05/01/2023 8:20 PM Question Answer Comments Full Code: Discussed Care Teams Community Outreach Specialist Relationship Specialty Start Date End Date Elsewhere, Pcp PCP - General Family Medicine 04/27/23
--- OUTSIDE RECORDS SUMMARY | 2024-12-12 09:05 | XMS_ITS | Encounter Summary ---
Author Organization [facility] Address [address] [place] [phone] Care Team Providers Care Category Planner Name Role Phone Elsewhere, Pcp Primary Care Provider Unavailabl e Reason for Visit * Reason Comments Med Refill Encounter Details Date Type Department Care Team (Late st Contact Info) Description 10/15/2024 Refill Department of Vascular Medicine in [place], [place] [address] [place] [phone] Preeti Martínez P.A.-C. [address] [place] [address] Med Refill Social History Tobacco Use Types Packs/Day Years Used Date Smoking Tobacco: Never Smokeless Tobacco: Never Alcohol Use Standard Drinks/Week Comments Yes 2 (1 standard drink = 0.6 oz pur e alcohol) socially [facility] Utilities Answer Date Recorded In the past 12 months has [facility] [employer], gas, oil, or water [employer] threatened to shut off services in your [...] your living situation today? I have a [facility] place to live 05/06/2024 Education Answer Date Recorded What is the highest level of school you have completed or the highest degree you have received? Doctorate 08/22/2018 Sex and Gender Information Value Date Recorded Sex Assigned at Male 03/24/2017 7:48 PM PIPE STRESS ENGINEER Legal Sex Male 6:02 PM PIPE STRESS ENGINEER Gender Identity Male 03/24/2017 7:48 PM PIPE STRESS ENGINEER Sexual Orientation Straight 03/24/2017 7: 48 PM PIPE STRESS ENGINEER documented as of this encounter Plan of Treatment Not on file documented as of this encounter Visit Diagnoses Not on filedocumented in this encounter Care Teams Category Planner Relationship Specialty Start Date End Date Elsewhere, Pcp PCP - General Family Medicine 04/27/23 documented as of this encounter
--- OUTSIDE RECORDS SUMMARY | 2024-12-12 09:05 | XMS_ITS | Clinical Summary ---
Author Organization [facility] Address [address] [place] [address] Care Team Providers Care Moving Consultant Name Role Phone Neville Olivera DO Primary Care Provider [phone] Allergies No known active allergies Medications Incontinence Pad, Liner, Disp (Attends Insert Pad) padsIndications: Neurogenic bladder,Tetraple kelly (HC) For home use 60 Each 6 1 Active disposable glovesIndication s:Neurogenic bladder,Tetraple kelly (HC) For home use. 2 box 6 1 Active Diaper,Brief, Adult,Disposable (Depend Underwear For Men L-XL)Indications :Neurogenic bladder,Tetraple kelly (HC) For home use. 60 Each 6 1 Active methenamine hippurate (HIPREX) 1 gram tablet Take 1,000 mg by mouth 2 times daily. 1 Active medication order composerIndicati ons:Skin sore HYDROFERA BLUE 2 X 2 BANDAGE 20 Each 5 Active silicone,dressin g-foam bandage 7 X 7 bndgIndications: Skin sore Apply topically to affected area(s). Sacrum Silicone Foam Dressing 20 Each 5 Active Xarelto 10 mg tabletIndication s:Deep vein thrombosis (DVT) of proximal vein of left lower extremity, unspecified chronicity (HC) Take 1 Tablet (10 mg) by mouth once daily with evening meal. 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 Incomplete quadriplegia [...] Encounters Date Type Department Care Team Description 11/20/2024 Telephone [facility] [address] [place] [address] Steve Sales MD Appointment (11-21-2024 UTI) 11/20/2024 Nurse Triage [facility] [address] [place] [address] Neville Olivera DO Urinary Problem 11/20/2024 Telephone [facility] [address] [place] [address] Neville Olivera DO UTI 09/20/2024 10:40 AM CDT Office Visit [facility] [address] [place] [address] Luana Cedeno PA UTI 09/20/2024 Travel from Last 3 Months Immunizations Immunization Administration Dates Next Due COVID-19 vaccine (Angelina-J&J) KIMANI TOMPKINS Tdap 07/25/2013 Family History Medical History Relation Name Comments Good Health Father Zachary Rodriguez Asthma Mother Claudia rodriguez Relation Name Status Comments Father Zachary Rodriguez Alive Mother Claudia rodriguez Social History Tobacco Use Types Packs/Day Years [...] on file Legal Sex 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 Gender Identity Not on file Sexual Orientation Not on file Obstetrics History Last Filed Vital Signs Vital Sign Reading Time Taken Comments Blood Pressure 111/74 09/20/2024 10:34 AM CDT Pulse 70 09/20/2024 10:34 AM CDT Temperature 37.4 C (99.4 F) 10/24/2023 9:49 AM CDT Respiratory Rate 16 04/26/2023 9:48 PM RECREATION COORDINATOR Oxygen Saturation 94% 09/20/2024 10:34 AM CDT Inhaled Oxygen Concentration - - Weight 84.4 kg (186 lb) 04/26/2023 5:25 PM RECREATION COORDINATOR Height 180.3 cm (5' 11) 04/26/2023 5:25 PM RECREATION COORDINATOR Body Mass Index 25.94 04/26/2023 5:25 PM RECREATION COORDINATOR Plan of Treatment Upcoming Encounters Date Type Department Care Team (Late st Contact Info) Description 12/31/2024 1:00 PM CDT Office Visit [facility] [address] [address] [place] [id number] Ailin Dias MD [address] [address] [place] [address] Health Maintenance Due Date Last Done Comments HIV for age 15-65 06/03/1979 Hepatitis C screening for age 18-79 1982 Pneumococcal series for age 50+ (1 of 1 - PCV) 2014 Zoster (shingles) series for age 50+ (1 of 2) 2014 Tetanus booster 07/26/2023 07/25/2013 Depression screening for age 12+ 11/16/2023 11/15/2022, 11/04/2022, 03/04/2021, Additional history exists RSV vaccine for adults or (1 - Risk 60-74 years 1-dose series) 2024 COVID-19 vaccine series (3 - 2024- season) 2024 02/08/2021, 07/12/2020 Influenza Vaccine (#1) 2024 Fecal testing sDNA-FIT [...] AM CDT Lower urinary tract symptoms (LUTS) SDNA-FIT EXTERNAL (COLOGUARD) Routine 01/02/2023 11:00 PM CDT Screening for colorectal cancer LIPID PANEL W REFLEX MEASURED LDL Routine 11/04/2022 9:36 AM CDT Lipid screening from Last 3 Months or Most Recently Relevant to Health Maintenance Results * (ABNORMAL) POCT Urinalysis Dipstick Only [[id number]] (09/20/2024 10:35 AM CDT) PH 6.5 5.0 - 8.0 [facility] SPECIFIC GRAVITY 1.015 1.001 - 1.035 [facility] GLUCOSE NEGATIVE NEGATIVE [facility] BILIRUBIN NEGATIVE NEGATIVE [facility] KETONES NEGATIVE NEGATIVE [facility] OCCULT BLOOD 3+(A) NEGATIVE [facility] PROTEIN 1+(A) NEGATIVE [facility] NITRITE POSITIVE(A) NEGATIVE [facility] LEUKOCYTE ESTERASE TRACE(A) NEGATIVE [facility] Urine URINE SPECIMEN / Unknown 09/20/2024 10:35 AM CDT 09/20/2024 10:49 AM CDT Luana GOFF URINE Final Result Performing Organization Address City/State/[facility] Co de Phone Number [facility] [address] [place], [place] [address] [phone] [facility] [address] [place] [address] * (ABNORMAL) URINALYSIS MICROSCOPIC [50600.1] - routine (09/20/2024 10:35 AM CDT) RBC 11-25(A) 0-2, None Seen /HPF 09/20/2024 3:51 PM CDT [facility] WBC 26-50(A) 0-2, 3-5, None Seen /HPF 09/20/2024 3:51 PM CDT [facility] BACTERIA Many(A) None Seen, Rare, Few Bacteria/ HPF 09/20/2024 3:51 PM CDT [facility] EPITHELIAL CELLS None Seen None Seen, Few Epi/HPF 09/20/2024 3:51 PM CDT [facility] HYALINE CASTS 0-2 0-2, 3-5 /LPF 09/20/2024 3:51 PM CDT [facility] Urine URINE SPECIMEN / Unknown Non-Blood / Unknown 09/20/2024 10:35 AM CDT 09/20/2024 10:48 AM CDT Luana GOFF URINE Final Result [facility] [address] [place] [address], [place] * (ABNORMAL) URINE CULTURE [20386.2] (09/20/2024 10:35 AM CDT) CULTURE RESULT(A) 09/22/2024 1:00 PM CDT [facility] CULTURE >100,000 CFU/mL Escherichia coli 09/22/2024 1:00 PM CDT [facility] Comment:ESBL-positive (Exten ded-spectrum beta-lactamase); multidrug-resistant [...] S Luana GOFF MICROBIOLOGY Final Result [facility] [address] [place] [address], [place] * SDNA-FIT EXTERNAL (COLOGUARD) [[id number]] (01/02/2023 11:00 PM CDT) NONINV COLON CA DNA+OCC BLD SCRN STL-IMP Negative Negative 01/11/2023 1:11 AM CDT [facility] [facility] (CLIA #:[id number]) Comment: NEGATIVE TEST RESULT. A negative Cologuard [...] (Qing Purvis al, N Engl J Med 2014;370(14):5598-8574) The normal value (reference range) for this assay is negative. COLOGUARD RE-SCREENING RECOMMENDATION: Periodic colorectal cancer screening is an important part of preventive healthcare for asymptomatic individuals at average risk for colorectal cancer. Following a negative Cologuard result, the [place] [employer] and U.S. Multi-Society Task Force screening guidelines recommend a Cologuard re-screening interval of 3 years. References: [place] [employer] Guideline for Colorectal Cancer Screening: https://www.cancer.org/cancer/ztgxf-cmvdof-kmggoo/ffamvneix-qelukeuyd-brshwxp/ac s-rec ommendations.html.; Jim JOHNSON, Penny ALAN, Theo STOVALL, Colorectal Cancer Screening: Recommendations for Physicians and Patients from the U.S. Multi-Society Task Force on Colorectal Cancer Screening , Am J Gastroenterology 2017; 112:6126-6451. TEST DESCRIPTION: Composite algorithmic analysis of stool [...] screened with both Cologuard and colonoscopy. (Qing Coburn et al, N Engl J Med 2014;370(14):9793-4844.) Cologuard may produce a false negative or false positive result (no colorectal cancer or precancerous polyp present at colonoscopy follow up). A negative Cologuard test result does not guarantee the absence of CRC or advanced adenoma (pre-cancer). The current Cologuard screening interval is every 3 years. ([place] [employer] and U.S. Multi-Society Task Force). Cologuard performance data in a 10,000 patient pivotal study using colonoscopy as the reference method can be accessed at the following location: www.[employer]/results. Additional description of the Cologuard test process, warnings and precautions can be found at www.[employer].com. Stool specimen (specimen) (Rectum) 01/02/2023 11:00 PM CDT 01/04/2023 8:11 PM CDT us Valerie Cortez MD URINE Final Result [facility] (CLIA #:[id number]) [place] [address], * (ABNORMAL) LIPID PANEL W REFLEX MEASURED LDL (11/04/2022 9:36 AM CDT) CHOLESTEROL,TOTAL 165 100 - 199 mg/dL 11/04/2022 6:37 PM CDT [facility] Comment: Cholesterol, Total Reference Ranges Desirable <200 mg/dL Borderline 200-239 mg/dL High >=240 mg/dL TRIGLYCERIDES 121 <150 mg/dL 11/04/2022 6:37 PM CDT [facility] HDL CHOLESTEROL 35(L) >40 mg/dL 6:37 PM CDT [facility] NON-HDL CHOLESTEROL 130 <145 mg/dl 11/04/2022 6:37 PM CDT [facility] CHOL/HDL RATIO 4.71(H) <4.50 11/04/2022 6:37 PM CDT [facility] LDL CHOLESTEROL 106 <=130 mg/dL 11/04/2022 6:37 PM CDT [facility] VLDL CHOLESTEROL 24 <=30 mg/dL 11/04/2022 6:37 PM CDT [facility] PROVIDER ORDERED STATUS RANDOM 11/04/2022 6:37 PM CDT [facility] Blood BLOOD SPECIMEN / Unknown Venipuncture / Unknown 11/04/2022 9:36 AM CDT 11/04/2022 9:40 AM CDT us Neville Olivera DO CHEMISTRY Final Result [facility] [employer] [facility] [address] [place] [address], [place] from Last 3 Months or Most Recently Relevant to Health Maintenance Additional Health Concerns Infection Onset Date Last Indicated ESBL 10/12/2021 09/20/2024 Insurance MEDICAID MEDICARE PART B HB ONLY MEDICARE PART A HB ONLY [place] BLUE MR PB ONLY Advance Directives * Full Code (Latest Code Status on File) Date Activated Date Inactivated Comments 10/10/2018 10:18 AM 10/10/2018 8:47 PM * Full Code Date Activated Date Inactivated Comments 07/12/2012 3:55 PM 07/31/2012 1:28 PM Care Teams Moving Consultant Relationship Specialty Start Date End Date Neville Olivera DO [address] [place] [address] PCP - General Family Practice 11/04/22
--- OUTSIDE RECORDS SUMMARY | 2024-12-12 09:05 | XMS_ITS | Encounter Summary ---
Author Organization [facility] Address [address] [place] [address] Care Team Providers Care Power Plant Operator Apprentice Name Role Phone Elsewhere, Pcp Primary Care Provider Unavailabl e Reason for Visit * Reason Onset Date Comments Med Refill 10/15/2024 Encounter Details Date Type Department Care Team (Late st Contact Info) Description 10/15/2024 Refill Department of Vascular Medicine in [place], [place] [address] [place] [phone] Preeti Martínez P.A.-C. [address] [place] [phone] Med Refill Social History Tobacco Use Types Packs/Day Years Used Date Smoking Tobacco: Never Smokeless Tobacco: Never Alcohol Use Standard Drinks/Week Comments Yes 2 (1 standard drink = 0.6 oz pur e alcohol) socially [facility] Utilities Answer Date Recorded In the past 12 months has [facility] [employer] gas, oil, or water [employer] threatened to shut off services in your [...] living situation today? I have a [facility] place to live 05/06/2024 Education Answer Date Recorded What is the highest level of school you have completed or the highest degree you have received? Doctorate 08/22/2018 Sex and Gender Information Value Date Recorded Sex Assigned at Male 03/24/2017 7:48 PM CURRICULUM FACILITATOR Legal Sex Male 6:02 PM CURRICULUM FACILITATOR Gender Identity Male 03/24/2017 7:48 PM CURRICULUM FACILITATOR Sexual Orientation Straight 03/24/2017 7: 48 PM CURRICULUM FACILITATOR documented as of this encounter Miscellaneous Notes * Telephone Encounter - Jacy Huang - 10/15/2024 12:18 PM CDT Refills to be completed by PCP documented in this encounter Plan of Treatment Not on file documented as of this encounter Visit Diagnoses Not on filedocumented in this encounter Care Teams Power Plant Operator Apprentice Relationship Specialty Start Date End Date Elsewhere, Pcp PCP - General Family Medicine 04/27/23 documented as of this encounter
[2024-12-12 09:08] VITALS: BP 147/89; PULSE 93; RESP 18; TEMP 36.7; O2SAT 18
--- NOTE | 2024-12-12 10:10 | CRLHL7_ITS ---
For Patients: As a result of the Cures Act, medical imaging exams and procedure reports are released immediately into your electronic medical record. You may view this report before your referring provider. If you have questions, please contact your health care provider. INDICATION: LOWER NECK/UPPER BACK PAIN, PREVIOUS NECK FX. TECHNIQUE: CT of the cervical spine was performed without intravenous contrast. COMPARISON: 07/01/2012. FINDINGS: Alignment: Normal. Vertebrae: Vertebral bodies and posterior elements are intact without acute fracture. Moderate degenerative changes of the visualized spine. Flowing anterior ossification is seen throughout the cervical spine. Postsurgical changes from anterior cervical discectomy and fusion at C6-7. Extra-vertebral soft tissues: Normal. Visualized brain: Normal. Additional comment: None. IMPRESSION: Postsurgical changes from anterior cervical discectomy and fusion at C6-7. No acute displaced fracture or malalignment of the cervical spine. Flowing anterior ossification is seen throughout the cervical spine, which may represent diffuse idiopathic skeletal hyperostosis. Please note that all CT scans at this facility use dose modulation, iterative reconstruction, and/or weight-based dosing when appropriate to reduce radiation dose to as low as reasonably achievable. Dictated by Dave Harrington MD @ 12/12/2024 11:21:23 AM (Electronically Signed)
--- NOTE | 2024-12-12 10:10 | CRLHL7_ITS ---
For Patients: As a result of the Century Cures Act, medical imaging exams and procedure reports are released immediately into your electronic medical record. You may view this report before your referring provider. If you have questions, please contact your health care provider. INDICATION: LOWER NECK/UPPER BACK PAIN, PREVIOUS NECK FX, TECHNIQUE: CT of the thoracic spine was performed without intravenous contrast. COMPARISON: Report 11/09/2023. FINDINGS: Alignment: Normal. Vertebrae: Syndesmophytes and flowing anterior ossification are seen throughout the thoracic spine. [id number] degenerative changes of the visualized spine. Acute fracture through the anterior osteophytes at C4-5. Possible mild widening of the facet joints at C4-5 bilaterally. Extra-vertebral soft tissues: Normal. Visualized lungs: Normal. Additional comment: Cholelithiasis. IMPRESSION: 1. Acute fracture through the anterior osteophytes at C4-5. 2. Possible mild widening of the facet joints at C4-5 bilaterally. Consider MRI for evaluation of acute injury. 3. Syndesmophytes and flowing anterior ossification are seen throughout the thoracic spine, which may represent ankylosing spondylitis and/or diffuse idiopathic skeletal hyperostosis. Please note that all CT scans at this facility use dose modulation, iterative reconstruction, and/or weight-based dosing when appropriate to reduce radiation dose to as low as reasonably achievable. Dictated by Dave Harrington MD @ 12/12/2024 11:31:33 AM (Electronically Signed)
--- NOTE | 2024-12-12 10:16 | ED.BACK ---
HPI - Back Pain/Injury General Date Seen: 12/12/24 <Tunde Jaime Jose R DO - Last Filed: 12/12/24 16:10> Chief Complaint: Back Injury/Pain <Tunde Odell DO - Last Filed: 12/12/24 16:10> Stated Complaint: [place] crack in back yesterday; discomfort <Tunde Yeni Jose R DO - Last Filed: 12/12/24 16:10> Time Seen by Provider: 12/12/24 09:41 <Tunde Odell DO - Last Filed: 12/12/24 16:10> Source: patient <Tunde Odell DO - Last Filed: 12/12/24 16:10> Mode of arrival: wheelchair <Tunde Jaime Jose R DO - Last Filed: 12/12/24 16:10> Limitations: no limitations <Tunde Yeni Jose R - Last Filed: 12/12/24 16:10> History of Present Illness HPI Narrative: Patient is a 59-year-old male presenting to the emergency department for concerns of a back injury. He is wheelchair-bound due to a neck fracture several years ago. States he has notably decreased sensation from his neck down compared to prior to the injury. States yesterday he was being transferred via or lift in his [employer] accidentally hit him in the chin with a shoulder. He states is a very large crack became from his upper back that both him and the [employer] heard. States he initially felt fine but woke up today with a warm sensation to his upper back and increased discomfort/tightness. Denies any other neurological changes. Denies any weakness of the arms. Denies any neck pain. No other concerns noted. <Tunde Odell DO - Last Filed: 12/12/24 16:10> Related Data Home Medications: Home Medications ?Medication ?Instructions ?Recorded ?Confirmed methenamine hippurate 1 gram tablet 1 g PO BID 10/17/23 12/12/24 rivaroxaban 10 mg tablet (Xarelto) 10 mg PO DAILY 10/17/23 12/12/24 <Tunde Odell DO - Last Filed: 12/12/24 16:10> Allergies/Adverse Reactions: Allergies Allergy/AdvReac Type Severity Reaction Status Date / Time No Known Drug Allergies Allergy Verified 12/12/24 09:33 <Tunde Odell DO - Last Filed: 12/12/24 16:10> Review of Systems Narrative: Pertinent systems reviewed and were negative unless stated in HPI <Tunde Odell DO Last Filed: 12/12/24 16:10> [facility] Social History: Social History Smoking Status: Never smoker How often do you have a drink containing alcohol: never AUDIT-C Alcohol total score: 0 Non-prescribed substance use: denies use <Tunde Odell DO - Last Filed: 12/12/24 16:10> Exam Narrative: Exam Narrative: Const: Well-nourished, Well-developed, in mild distress, wheelchair-bound Eyes: PERRL, no conjunctival injection, and symmetrical lids HENT: Atraumatic external nose and ears. Moist mucous membranes. Neck: Symmetric, trachea midline, No thyromegaly. CVS: RRR, No murmurs or gallops. Peripheral pulses 2+ and equal in all extremities RESP: Unlabored respiratory effort. Clear to auscultation bilaterally. GI: Nontender/Nondistended, No rebound or guarding. MSK:Extremities w/o deformity, Normal Active ROM to upper extremities, no midline spinal tenderness. Skin: Warm, Dry. No rashes or lesions. Neuro: Normal Muscle tone, unable to move lower extremities. Normal sensation muscle strength to upper extremities Psych: Awake, Alert, & Oriented x3. Appropriate mood and affect. <Tunde P Jose R Last Filed: 12/12/24 16:10> Const: Vital Signs, click to edit/add: Vital Signs - 24 hr 12/12/24 09:08 Temperature 98.1 F Pulse Rate [Right Pulse Oximeter] 93 Respiratory Rate 18 Blood Pressure [Ri ght Upper Arm] 147/89 H Pulse Oximetry 18 L Oxygen Delivery Me thod Room Air <Tunde P Jose R Last Filed: 12/12/24 16:10> Vital Signs, click to edit/add: Vital Signs - 24 hr 12/12/24 09:08 Temperature 98.1 F Pulse Rate [Right Pulse Oximeter] 93 Respiratory Rate 18 Blood Pressure [Ri ght Upper Arm] 147/89 H Pulse Oximetry 18 L Oxygen Delivery Me thod Room Air <Anuj Torrez MD - Last Filed: 12/12/24 17:46> Course Vital Signs Vital signs: Initial Vital Signs Temperature 98.1 F 12/12/24 09:08 Temperature Source Temporal Artery Scan 12/12/24 09:08 Pulse Rate 93 12/12/24 09:08 Pulse Rhythm Regular 12/12/24 09:08 Pulse Strength 3+ Normal 12/12/24 09:08 Respiratory Rate 18 12/12/24 09:08 Blood Pressure 147/89 H 12/12/24 09:08 Blood Pressure Mean 108 H 12/12/24 09:08 Blood Pressure Position Sitting 12/12/24 09:08 Pulse Oximetry 18 L 12/12/24 09:08 Oxygen Delivery Method Room Air 12/12/24 09:08 Vital Signs Temperature 98.1 F 12/12/24 09:08 Pulse Rate 93 12/12/24 09:08 Respiratory Rate 18 12/12/24 09:08 Blood Pressure 147/89 H 12/12/24 09:08 Pulse Oximetry 18 L 12/12/24 09:08 Oxygen Delivery Method Room Air 12/12/24 09:08 Temperature 98.1 F 12/12/24 09:08 Pulse Rate 93 12/12/24 09:08 Respiratory Rate 18 12/12/24 09:08 Blood Pressure 147/89 H 12/12/24 09:08 Pulse Oximetry 18 L 12/12/24 09:08 Oxygen Delivery Method Room Air 12/12/24 09:08 <Tunde Odell DO - Last Filed: 12/12/24 16:10> Initial Vital Signs Temperature 98.1 F 12/12/24 09:08 Temperature Source Temporal Artery Scan 12/12/24 09:08 Pulse Rate 93 12/12/24 09:08 Pulse Rhythm Regular 12/12/24 09:08 Pulse Strength 3+ Normal 12/12/24 09:08 Respiratory Rate 18 12/12/24 09:08 Blood Pressure 147/89 H 12/12/24 09:08 Blood Pressure Mean 108 H 12/12/24 09:08 Blood Pressure Position Sitting 12/12/24 09:08 Pulse Oximetry 18 L 12/12/24 09:08 Oxygen Delivery Method Room Air 12/12/24 09:08 Vital Signs Temperature 98.1 F 12/12/24 09:08 Pulse Rate 93 12/12/24 09:08 Respiratory Rate 18 12/12/24 09:08 Blood Pressure 147/89 H 12/12/24 09:08 Pulse Oximetry 18 L 12/12/24 09:08 Oxygen Delivery Method Room Air 12/12/24 09:08 Temperature 98.1 F 12/12/24 09:08 Pulse Rate 93 12/12/24 09:08 Respiratory Rate 18 12/12/24 09:08 Blood Pressure 147/89 H 12/12/24 09:08 Pulse Oximetry 18 L 12/12/24 09:08 Oxygen Delivery Method Room Air 12/12/24 09:08 <Anuj Torrez MD - Last Filed: 12/12/24 17:46> MDM - Back Pain/Injury MDM Narrative Medical decision making narrative: Patient is a 59-year-old male presenting for discomfort to his back that occurred after getting hit in the chin yesterday while being moved with his krishna lift. Fall this is a relatively low mechanism of injury he does have baseline decreased bone mineralization due to being wheelchair-bound and his decreased sensation to his back from his previous neck fractures is difficult to say if this sensation he is having is related to any actual injuries. Considering all that I do believe it is important to CT his cervical and thoracic spine. CT scans returned reviewed by myself and the radiologist. CT scan cervical spine shows no acute concerning abnormalities. CT scan thoracic spine shows acute fractures to the anterior also fights at T4 and T5. This also possible mild widening of the facet joints at T4-T5 bilaterally. Radiology recommends MRI for evaluation of acute injury. Again well the patient has minimal symptoms with his history and decreased sensation at baseline do believe the MRI is necessary. Will be ordered. Cannot be performed until 15:30 due to scheduling with the MRI. Patient is agreeable to this plan. <Tunde Odell DO - Last Filed: 12/12/24 16:10> Patient is a 59-year-old male presenting for discomfort to his back that occurred after getting hit in the chin yesterday while being moved with his krishna lift. Fall this is a relatively low mechanism of injury he does have baseline decreased bone mineralization due to being wheelchair-bound and his decreased sensation to his back from his previous neck fractures is difficult to say if this sensation he is having is related to any actual injuries. Considering all that I do believe it is important to CT his cervical and thoracic spine. CT scans returned reviewed by myself and the radiologist. CT scan cervical spine shows no acute concerning abnormalities. CT scan thoracic spine shows acute fractures to the anterior also fights at T4 and T5. This also possible mild widening of the facet joints at T4-T5 bilaterally. Radiology recommends MRI for evaluation of acute injury. Again well the patient has minimal symptoms with his history and decreased sensation at baseline do believe the MRI is necessary. Will be ordered. Cannot be performed until 15:30 due to scheduling with the MRI. Patient is agreeable to this plan. MR imaging shows the fracture of the anterior osteophytes at T4 and T5 as seen on CT scan. there is also evidence of an adjacent disruption of the anterior longitudinal ligament. I did speak with a neurosurgeon at [facility] who recommended a TLSO brace which we do not have here. The patient states that he prefers to go to [place]. I did contact male who said that they do not have these braces in their facility but out source that with a independent Ortho group. The patient is agreeable to go to [facility] to be fitted for this brace. Dr. Brown is the accepting MD at [facility]. <Anuj Torrez MD - Last Filed: 12/12/24 17:46> Imaging Data CT scan cervical spine: Attestation: I have reviewed the pertinent imaging results. <Tunde Odell DO - Last Filed: 12/12/24 16:10> Radiologist's impression: Postsurgical changes from anterior cervical discectomy and fusion at C6-7. No acute displaced fracture or malalignment of the cervical spine. Flowing anterior ossification is seen throughout the cervical spine, which may represent diffuse idiopathic skeletal hyperostosis. Please note that all CT scans at this facility use dose modulation, iterative reconstruction, and/or weight-based dosing when appropriate to reduce radiation dose to as low as reasonably achievable. Dictated by Dave Harrington MD @ 12/12/2024 11:21:23 AM <Tunde Odell DO - Last Filed: 12/12/24 16:10> CT scan thoracic spine: Attestation: I have reviewed the pertinent imaging results. <Tunde Odell DO - Last Filed: 12/12/24 16:10> Radiologist's impression: 1. Acute fracture through the anterior osteophytes at T4-5. 2. Possible mild widening of the facet joints at T4-5 bilaterally. Consider MRI for evaluation of acute injury. 3. Syndesmophytes and flowing anterior ossification are seen throughout the thoracic spine, which may represent ankylosing spondylitis and/or diffuse idiopathic skeletal hyperostosis. T4-5, not C4-5. Discussed with Dr. Tunde Odell. Dictated by Dave Harrington MD @ Dec 12 2024 11:43AM <Tunde Odell DO - Last Filed: 12/12/24 16:10> MR Thoracic spine: Radiologist's impression: 1. Acute fracture through the anterior osteophytes at T4-T5 with adjacent disruption of the anterior longitudinal ligament. 2. Mild prevertebral edema spanning T3-T8 and mild edema within the T4-T5 facet joints. 3. Normal signal intensity of the thoracic spinal cord. 4. No high-grade spinal canal or neural foraminal stenosis. <Anuj Torrez MD - Last Filed: 12/12/24 17:46> Discharge Plan Discharge Clinical Impression: Fracture, thoracic vertebra Qualifiers: Encounter type: initial encounter Thoracic vertebra fracture level: unspecified thoracic vertebra Fracture type: closed Fracture morphology: other fracture Qualified Code(s): S22.008A - Other fracture of unspecified thoracic vertebra, initial encounter for closed fracture <Tunde Odell DO - Last Filed: 12/12/24 16:10> Patient Disposition: Home, Self-Care <Tunde Odell DO - Last Filed: 12/12/24 16:10> Condition: Stable <Tunde Odell DO - Last Filed: 12/12/24 16:10> Additional Instructions: You were fracture to osteophyte on T4 and T5. This is in front of the vertebra and is not a pushing against the spinal cord. Osteophytes is another name for a bone spur. Fracture of this is non concerning. There is a adjacent disruption of the anterior longitudinal ligament that requires a TLSO brace. [facility] has this brace and it can be fitted there and then discharged home. Dr. Brown is the ER Physician who will manage your visit there in the Emergency Dept. <Tunde Odell DO - Last Filed: 12/12/24 16:10> Prescriptions: No Action Xarelto 10 mg tablet 10 mg PO DAILY methenamine hippurate 1 gram tablet 1 g PO BID <Tunde Odell DO - Last Filed: 12/12/24 16:10> Follow Up/Referrals: JOELLEN FIORE DO [Primary Care Provider, Family Practice] <Tunde Odell DO - Last Filed: 12/12/24 16:10> Stand Alone Forms: MyHealth Info Instructions <Tunde Odell DO - Last Filed: 12/12/24 16:10>
--- NOTE | 2024-12-12 12:43 | CRLHL7_ITS ---
For Patients: As a result of the Cures Act, medical imaging exams and procedure reports are released immediately into your electronic medical record. You may view this report before your referring provider. If you have questions, please contact your health care provider. Indication: T4-T5 osteophyte fracture. Technique: Multisequence multiplanar MRI of the thoracic spine without the use of intravenous contrast. Comparison: Correlated with CT thoracic spine dated same day 12/12/2024. Findings: Acute fracture through the anterior osteophytes at T4-T5 with associated disruption of the adjacent anterior longitudinal ligament. Mild prevertebral edema spanning T3-T8 and mild edema within T4-T5 facet joints. Accentuated thoracic kyphosis with multilevel disc desiccation and height loss. Vertebral body heights are maintained. No T1 hypointense infiltrative lesion is identified. The thoracic spinal cord is normal in signal intensity. Evaluation of the individual levels demonstrates no significant spinal canal or neural foraminal stenosis. Impression: 1. Acute fracture through the anterior osteophytes at T4-T5 with adjacent disruption of the anterior longitudinal ligament. 2. Mild prevertebral edema spanning T3-T8 and mild edema within the T4-T5 facet joints. 3. Normal signal intensity of the thoracic spinal cord. 4. No high-grade spinal canal or neural foraminal stenosis. Dictated by Jaycob Barrera MD @ 12/12/2024 4:49:30 PM (Electronically Signed)
--- NOTE | 2024-12-12 21:15 | ED.NURSE ---
Pt called this nurse from [facility] and states that he will have to be admitted to [facility] overnight and will not be fitted for a brace for his broken neck until the morning. Pt states he wants to leave the ER at [facility]. This nurse advised pt to stay in ER until he was admitted to the floor and he absolutely needed to be fitted for the neck brace due to his neck fracture. Pt states he wants to leave the ER. janitorial services supervisor called [facility] Charge nurse Imer, and charge nurse was talking to the the patient about staying at [facility] for the overnight to be fitted for a neck brace in the morning.
== END 2024-12-12 18:03 | disposition home or self-care (01) ==
PROVIDERS: Emergency Provider Emergency Medicine Emergency Medical Services; PCP Student in an Organized Health Care Education/Training Program
DX: S22.049A Unspecified fracture of fourth thoracic vertebra, initial encounter for closed fracture (principal); W22.8XXA Striking against or struck by other objects, initial encounter
CPT/HCPCS: 72125; 72128; 72146; 99284

== ENCOUNTER 2024-12-25 14:50 | Outpatient (CLI) | payer MEDICARE, BC, MEDICAID, SELFPAY | END 2024-12-25 14:51 | disposition home or self-care (01) | LOC: WOUND 14:50 | PROVIDERS: PCP Student in an Organized Health Care Education/Training Program; Visit Provider Surgery | DX: L89.153 Pressure ulcer of sacral region, stage 3 (principal); G82.53 Quadriplegia, C5-C7 complete; Z99.3 Dependence on wheelchair | CPT/HCPCS: G0463 ==

== ENCOUNTER 2025-01-22 14:18 | Outpatient (CLI) | payer MEDICARE, BC, MEDICAID, SELFPAY | END 2025-01-22 14:19 | disposition home or self-care (01) | LOC: WOUND 14:18 | PROVIDERS: PCP Student in an Organized Health Care Education/Training Program; Visit Provider Surgery | DX: L89.153 Pressure ulcer of sacral region, stage 3 (principal); G82.53 Quadriplegia, C5-C7 complete; Z99.3 Dependence on wheelchair | CPT/HCPCS: 11042 ==

== ENCOUNTER 2025-01-31 09:27 | Outpatient (CLI) | payer MEDICARE, BC, MEDICAID, SELFPAY | END 2025-01-31 09:28 | disposition home or self-care (01) | PROVIDERS: PCP Student in an Organized Health Care Education/Training Program; Visit Provider Nurse Practitioner Family | DX: L89.153 Pressure ulcer of sacral region, stage 3 (principal); G82.53 Quadriplegia, C5-C7 complete; Z99.3 Dependence on wheelchair | CPT/HCPCS: 97597 ==